=== PATIENT | male | born 1955 | race Caucasian/White ===

== ENCOUNTER 2019-12-19 09:05 | Outpatient (CLI) | payer MEDICARE, SELFPAY ==
--- NOTE | ~2019-12-19 | XR_ITS ---
EXAMINATION: XR chest 2V EXAM DATE: 12/19/2019 10:30 INDICATION: Persistent cough. TECHNIQUE: Frontal and lateral projections of the chest obtained and reviewed. Comparison is made to prior examination from 02/13/2012. FINDINGS: Left upper lobe, suprahilar postinfectious residua unchanged. The lungs are otherwise clear . There are no pleural effusions. The cardiomediastinal silhouette is within normal limits. There is no pneumothorax suspected. The bones and soft tissues are unremarkable. IMPRESSION: No acute cardiopulmonary findings. Reviewed, dictated and finalized at location B.
--- NOTE | 2019-12-23 12:31 | WPDPFTINT ---
PFT Interpretation PFT Interpretation: This PFT met all criteria for ATS standards and reproducibility FEV/FVC post bronchodilator 71% FEV1 73% or 2.50 liters FVC 69% or 3.51 lters TLC 87% RV 101% RV/TLC 42% DLCO 78% or 22.0 liters when adjusted for alveolar volume but not adjusted for hemoglobin Flow volume loops were normal Impression: Possible mild or to moderate obstruction with mildly reduced diffusion capacity. Would repeat PFT with bronchodilator challenge if needed. Clinical correlation is advised.
== END 2019-12-19 09:06 | disposition home or self-care (01) ==
PROVIDERS: PCP Family Medicine; Visit Provider Family Medicine
DX: R05 Cough (principal); E11.9 Type 2 diabetes mellitus without complications; I10 Essential (primary) hypertension; I48.91 Unspecified atrial fibrillation
CPT/HCPCS: 71046; 94375; 94726; 94729

== ENCOUNTER 2021-06-19 11:23 | Emergency (ER) | payer MEDICARE, SELFPAY ==
[2021-06-19 11:38] VITALS: BP 167/72; PULSE 64; RESP 16; TEMP 36.3; O2SAT 100
--- NOTE | 2021-06-19 12:26 | ED.UPPEXIN ---
HPI - Extremity Injury (Upper) General Chief Complaint: Extremity Injury, Upper Stated Complaint: INJURED R THUMB Source: patient and RN notes reviewed Limitations: no limitations History of Present Illness HPI narrative: The right-handed vaccinated patient, on multiple meds including anticoagulants, presents with thumb pain. Patient states he slipped and fell earlier this morning, abrading/ avulsing his right thumb. He complains of mild pain but continued bleeding that is unrelieved with pressure, styptic. He states he is on aspirin and Eliquis for history of atrial fibrillation. Symptoms are mild and only slightly better over time; he denies extremity decreased ROM, weakness, other injury,, other bleeding. Discussed plan will provide Surgicel and wound cleansing/preparation. Related Data Allergies Allergy/AdvReac Type Severity Reaction Status Date / Time Sulfa (Sulfonamide Allergy Unknown Skin Verified 04/04/21 15:25 Antibiotics) Reaction Review of Systems Review of Systems: General/Constitutional: No weight loss,fever Eyes: N0: Redness,discharge Ears/Nose/Throat: No: Epistaxis,ear discharge Respiratory: Denies: Hemoptysis Gastrointestinal: No Vomiting, Bleeding-rectal Skin: No Lumps, eruption Neurologic: No Focal Weakness,Sz Hematologic: Denies: Petechiae/Purpura Psychiatric: No: Suicida ideationl All Other Systems: Reviewed and Negative PMFSH Family History Family History Sibling Diabetes mellitus Hypertension Cerebrovascular accident Carcinoma of colon Family history of coronary artery disease Family history of malignant neoplasm of breast in first degree relative Family history of cardiovascular disease Father Family history of malignant neoplasm Grandparent Family history of kidney disease Other Family history of arthritis Family history of congestive heart failure Family history of obesity Social History Social History Alcohol intake: never Comments At time of signature, agree with nursing past medical, surgical, social and family history. There is no relevant family history pertinent to the presenting complaint Exam Narrative: General Appearance: Well appearing, Well nourished, No distress, Conjunctiva clear Mouth/Throat: Normal appearing, Normal lips, Supple Respiratory: Airway patent, No respiratory distress MS-finger:Nl strength(mostly intact, limited flexion/extension by pain),Tenderness (thumb tuft pad, with mild decreased ROM), Scant swelling ,Other (no anterior drawer, no collateral laxity, Skin: Nickel sized area of skin avulsion/abrasion of the thumb; warm, Dry, Normal color Neurological: A&O x3, Speech clear, CN II-XII intact Psychiatric: Normal mood, Normal affect Course Vital Signs Vital signs: Vital Signs Temperature 97.4 F L 06/19/21 11:38 Pulse Rate 64 06/19/21 11:38 Respiratory Rate 16 06/19/21 11:38 Blood Pressure 167/72 H 06/19/21 11:38 Pulse Oximetry 100 06/19/21 11:38 Temperature 97.4 F L 06/19/21 11:38 Pulse Rate 64 06/19/21 11:38 Respiratory Rate 16 06/19/21 11:38 Blood Pressure 167/72 H 06/19/21 11:38 Pulse Oximetry 100 06/19/21 11:38 Discharge Plan Discharge Clinical Impression: Abrasion Patient Disposition: Home, Self-Care Condition: Improved Instructions: Skin Avulsion (ED) Prescriptions: No Action tadalafil [Cialis] 10 mg tablet 10 mg PO DAILY PRN (Reason: sexual activity) Qty: 30 RF: 4 Eliquis 5 mg tablet 5 mg PO BID Qty: 60 RF: 11 metformin 500 mg tablet extended release 24 hr See Rx Instructions .ROUTE .COMPLEX Qty: 360 RF: 3 glimepiride 4 mg tablet See Rx Instructions .ROUTE .COMPLEX Qty: 90 RF: 3 irbesartan 150 mg tablet See Rx Instructions .ROUTE .COMPLEX Qty: 90 RF: 3 metoprolol succinate 50 mg tablet extended release 24 hr See R
[2021-06-19] MEDS: CELLULOSE OXIDIZED 2 x 14 INCH 1 PKT XX (12:33)
--- NOTE | 2021-06-19 18:27 | PC.NURSE ---
1328 ALEXANDRO AND QUINN APPLIED TO ABRASION RIGHT DISTAL THUMB PRIOR TO DISCHARGE
== END 2021-06-19 13:36 | disposition home or self-care (01) ==
PROVIDERS: Emergency Provider Emergency Medicine; PCP Family Medicine
DX: S60.311A Abrasion of right thumb, initial encounter (principal); E11.9 Type 2 diabetes mellitus without complications; I10 Essential (primary) hypertension; I48.91 Unspecified atrial fibrillation; E78.2 Mixed hyperlipidemia; W01.0XXA Fall on same level from slipping, tripping and stumbling without subsequent striking against object, initial encounter
CPT/HCPCS: 99212; G0463

== ENCOUNTER 2021-07-04 00:59 | Day surgery (SDC) | payer MEDICARE, SELFPAY ==
[2021-06-22 16:13] VITALS: BMI 33.4
--- NOTE | 2021-07-04 08:10 | WPDGICN ---
Assessment and Plan Assessment and plan (1) Family hx of colon cancer: Code(s): Z80.0 - Family history of malignant neoplasm of digestive organs Status: Acute Assessment and Plan: Patient's brother has had colon cancer. Plan is for surveillance colonoscopy now and at intervals in the future. GI Consult Note Consult date/time: 07/04/21 08:10 HPI: Wesley Sanchez is a 66 year old male REFERRED FOR SCREENING COLONOSCOPY. PATIENT REPORTS THAT HIS CURRENT WEIGHT APPETITE BOWEL MOVEMENTS ARE NORMAL. HE DENIES ABDOMINAL PAIN. HE HAS HAD NO BLEEDING. FAMILY HISTORY IS SIGNIFICANT HIS BROTHER HAD COLON CANCER. PATIENT'S LAST COLONOSCOPY WAS 10 YEARS AGO WAS UNREMARKABLE. [facility] Family History Family History Sibling Diabetes mellitus Hypertension Cerebrovascular accident Carcinoma of colon Family history of coronary artery disease Family history of malignant neoplasm of breast in first degree relative Family history of cardiovascular disease Father Family history of malignant neoplasm Grandparent Family history of kidney disease Other Family history of arthritis Family history of congestive heart failure Family history of obesity Social History Social History Smoking status: Former smoker Tobacco type: cigarettes Smoking end date: 10/08/89 Alcohol intake: current Alcohol use details: every other week, social Substance use: never Substance use type: does not use Living arrangements: with family Spiritual care concerns: No Meds Home Medications and Allergies Home Medications Medication Instructions Recorded Confirmed Type tadalafil 10 mg tablet 10 mg PO DAILY PRN #30 tablet 05/07/20 06/22/21 Rx apixaban 5 mg tablet 5 mg PO BID #60 tablet 09/27/20 06/22/21 Rx metformin 500 mg tablet,extended See Rx Instructions .ROUTE 12/03/20 06/22/21 Rx release 24 hr .COMPLEX #360 tablet glimepiride 4 mg tablet See Rx Instructions .ROUTE 03/02/21 06/22/21 Rx .COMPLEX #90 tablet irbesartan 150 mg tablet See Rx Instructions .ROUTE 03/02/21 06/22/21 Rx .COMPLEX #90 tablet metoprolol succinate 50 mg See Rx Instructions .ROUTE 03/02/21 06/22/21 Rx tablet,extended release 24 hr .COMPLEX #90 tablet simvastatin 20 mg tablet See Rx Instructions .ROUTE 03/02/21 06/22/21 Rx .COMPLEX #90 tablet Allergies Allergy/AdvReac Type Severity Reaction Status Date / Time Sulfa (Sulfonamide Allergy Unknown Skin Verified 06/22/21 16:12 Antibiotics) Reaction Exam Narrative: PHYSICAL EXAM REVEALS PATIENT TO BE ALERT. VITAL SIGNS STABLE. HEENT EXAM IS UNREMARKABLE. PATIENT IS ANICTERIC. LUNGS ARE CLEAR TO AUSCULTATION AND PERCUSSION. HEART IS WITHOUT MURMUR OR EXTRA SOUNDS. ABDOMINAL EXAM BOWEL SOUNDS ARE PRESENT SOFT NONTENDER WITH NO ORGANOMEGALY. DIGITAL EXTERNAL RECTAL EXAM IS NORMAL.
[2021-07-04 08:13] LABS: Glucose Point of Care 141 mg/dl (65-105)
[2021-07-04 08:16] VITALS: BP 167/115; PULSE 86; RESP 16; TEMP 36; O2SAT 99; BMI 31.2
--- NOTE | 2021-07-04 08:17 | WPDANESEPPF ---
Anes - Initial Pre Proc Eval Procedure: Operation Date: 07/04/21 09:00 Proposed Procedures p Screening Colonoscopy - Oleg Crenshaw MD Date/Time: 07/04/21 08:17 Surgeon: Oleg Crenshaw MD Pre Op Diagnosis: family hx of colon ca Patient Data Age: 66 Gender: M Height: 1.88 m Weight: 118 kg Allergies Allergy/AdvReac Type Severity Reaction Status Date / Time Sulfa (Sulfonamide Allergy Unknown Skin Verified 07/04/21 08:15 Antibiotics) Reaction Home Medications Medication Instructions Recorded Confirmed Type tadalafil 10 mg tablet 10 mg PO DAILY PRN #30 tablet 05/07/20 06/22/21 Rx apixaban 5 mg tablet 5 mg PO BID #60 tablet 09/27/20 06/22/21 Rx metformin 500 mg tablet,extended See Rx Instructions .ROUTE 12/03/20 06/22/21 Rx release 24 hr .COMPLEX #360 tablet glimepiride 4 mg tablet See Rx Instructions .ROUTE 03/02/21 06/22/21 Rx .COMPLEX #90 tablet irbesartan 150 mg tablet See Rx Instructions .ROUTE 03/02/21 06/22/21 Rx .COMPLEX #90 tablet metoprolol succinate 50 mg See Rx Instructions .ROUTE 03/02/21 06/22/21 Rx tablet,extended release 24 hr .COMPLEX #90 tablet simvastatin 20 mg tablet See Rx Instructions .ROUTE 03/02/21 06/22/21 Rx .COMPLEX #90 tablet Laboratory Tests 07/04/21 08:05 POC Capillary Glucose 141 mg/dl H mg/dl (65-105) Patient hx anesthesia problems: none Family hx anesthesia problems: none Results Review: All pre-operative results and documents have been reviewed as part of the pre-operative evaluation. [facility] Family History Family History Sibling Diabetes mellitus Hypertension Cerebrovascular accident Carcinoma of colon Family history of coronary artery disease Family history of malignant neoplasm of breast in first degree relative Family history of cardiovascular disease Father Family history of malignant neoplasm Grandparent Family history of kidney disease Other Family history of arthritis Family history of congestive heart failure Family history of obesity Social History Social History Smoking status: Former smoker Tobacco type: cigarettes Smoking end date: 10/08/89 Alcohol intake: current Alcohol use details: every other week, social Substance use: never Substance use type: does not use Living arrangements: with family Spiritual care concerns: No Anes - Eval Final PreProcedure Day of Procedure 07/04/21 08:17 Patient weight: obese Heart: irregular rhythm Lungs: clear to auscultation Airway: Mallampati scale Neurological: alert and oriented Last oral intake: >/= 8 hours ASA classification: III Emergent: no Anesthetic plan: proceed Anesthesia type and monitoring: general GIVS and standard monitoring Results Review: All pre-operative results and documents have been reviewed as part of the pre-operative evaluation. Informed Consent: The patient's anesthetic plan and its attendant risks and benefits were discussed with the patient/family/POA. Questions were solicited and answers provided to the satisfaction of the patient/family/POA.
[2021-07-04] MEDS: LACTATED RINGERS 1,000 ML 150 ML IV CONT (08:30)
[2021-07-04 08:32] VITALS: BP 157/90
[2021-07-04 09:04] VITALS: BP 103/62; PULSE 71; RESP 14; O2SAT 96
[2021-07-04 09:14] VITALS: BP 120/69; PULSE 76; RESP 14; O2SAT 96
[2021-07-04 09:24] VITALS: BP 164/93; PULSE 83; RESP 19; O2SAT 100
== END 2021-07-04 09:43 | disposition home or self-care (01) ==
PROVIDERS: PCP Family Medicine; Visit Provider Internal Medicine Gastroenterology
PROC: 0DJD8ZZ Inspection of Lower Intestinal Tract, Via Natural or Artificial Opening Endoscopic (ICD-10-PCS; CPT 45378; principal; 2021-07-04 09:00)
DX: Z12.11 Encounter for screening for malignant neoplasm of colon (principal); K64.8 Other hemorrhoids; K63.5 Polyp of colon; D12.2 Benign neoplasm of ascending colon; D12.4 Benign neoplasm of descending colon; D12.3 Benign neoplasm of transverse colon; Z79.01 Long term (current) use of anticoagulants; Z79.84 Long term (current) use of oral hypoglycemic drugs; Z87.891 Personal history of nicotine dependence; E66.9 Obesity, unspecified; Z68.31 Body mass index [BMI] 31.0-31.9, adult
CPT/HCPCS: 45385; 82948; 88305; J2704; J7120

== ENCOUNTER → 2021-09-06 10:47 | Outpatient (CLI) | payer MEDICARE, SELFPAY ==
--- NOTE | ~2021-09-06 | US_ITS ---
US renal BI 09/06/2021 11:03 Procedure: Realtime transabdominal ultrasound of the kidneys and bladder. Indication: Decreased renal function Comparison: No prior studies for comparison. Findings: Renal echotexture is increased bilaterally without hydronephrosis, contour deforming mass o r renal calculus. The right kidney measures 12.8 cm and left kidney measures 12.8 cm. There is a righ t renal cyst measuring 1.7 cm. Bladder within normal limits. Impression: 1: Increased renal cortical echotexture bilaterally, consistent with chronic renal disease. Reviewed, dictated and finalized at location B. RDOUS SUBSTANCES SCIENTIST Impression: 1: Increased renal cortical echotexture bilaterally, consistent with chronic re nal disease.
== END ==
PROVIDERS: PCP Family Medicine; Visit Provider Internal Medicine Nephrology
DX: R94.4 Abnormal results of kidney function studies (principal)
CPT/HCPCS: 76775

== ENCOUNTER 2022-08-29 20:39 | Inpatient (IN) | payer MEDICARE, SELFPAY ==
[2022-08-29] VITALS (18 sets, daily range): BP systolic 127–165; BP diastolic 66–88; PULSE 82–101; RESP 14–27; TEMP 37.6–38.3; O2SAT 93–96
--- NOTE | ~2022-08-29 | XR_ITS ---
XR chest port-a-cath/central 09/04/2022 12:27 Indication: Central line placement Procedure: AP portable chest Comparison: Comparison to multiple prior studies sequentially, with oldest reviewed study dated 05/2012. Findings: Borderline heart size. No focal air space disease, pulmonary edema, pleural effusion or connor pected pneumothorax. There is calcified granuloma left apex. Right IJ central line tip caudal aspect of the SVC near the cavoatrial junction. Impression: 1: No acute cardiopulmonary disease. Reviewed, dictated and finalized at location A. CLOSER Impression: 1: No acute cardiopulmonary disease.
--- NOTE | ~2022-08-29 | US_ITS ---
EXAMINATION: US right upper quadrant DATE: 09/03/2022 09:02 INDICATION: Bacteremia. TECHNIQUE: Multiple grayscale and Doppler ultrasound images of the abdomen were obtained. COMPARISON: CT abdomen and pelvis 09/03/2015 FINDINGS: Abdominal aorta is normal in caliber. The visualized portions of the head of the pancreas a re normal. The liver is normal without focal lesion. There is normal flow in main portal vein. The ga llbladder is normal in size and contains sludge. No gallstones or gallbladder wall thickening. There is no sonographic King sign. The common duct is normal and measures 4 mm. There is a 1.7 cm cyst in right kidney. IMPRESSION: 1. Gallbladder sludge. No evidence of acute cholecystitis. Reviewed, dictated and finalized at location A. UNICATION ARTS LECTURER
--- NOTE | ~2022-08-29 | CT_ITS ---
EXAMINATION: CT cervical spine wo con DATE: 08/29/2022 21:50 INDICATION: Fall. TECHNIQUE: Computed tomography (CT) of the cervical spine was performed without intravenous contrast. Automated exposure control and iterative reconstruction technique were employed. The dose-length pro duct was 538.03 mGy-cm. COMPARISON: None FINDINGS: There is 2 mm anterolisthesis of C7 on T1. Vertebral body heights are normal. There is mild ly decreased disc height at C2-C3 and C4-C5, moderately decreased disc height at C5-C6, severely decr eased disc height at C6-C7, and mildly decreased disc height at T7-T1. The following disc levels are specifically discussed: C2-C3: There is mild bilateral uncovertebral joint osteoarthritis. There is moderate bilateral facet joint osteoarthritis. There is no neural foraminal stenosis. There is no central canal stenosis. C3-C4: There is mild bilateral uncovertebral joint osteoarthritis. There is severe bilateral facet nallely int osteoarthritis. There is mild bilateral neural foraminal stenosis. There is mild central canal st enosis. C4-C5: There is moderate right and mild left uncovertebral joint osteoarthritis. There is severe righ t and mild left facet joint osteoarthritis. There is mild right neural foraminal stenosis. There is m ild central canal stenosis. C5-C6: There is severe bilateral uncovertebral joint osteoarthritis. There is moderate bilateral face t joint osteoarthritis. There is moderate right and mild left neural foraminal stenosis. There is mil d central canal stenosis. C6-C7: There is severe bilateral uncovertebral joint osteoarthritis. There is moderate and severe lef t facet joint osteoarthritis. There is mild bilateral neural foraminal stenosis. There is mild centra l canal stenosis. C7-T1: There is no uncovertebral joint osteoarthritis. There is severe bilateral facet joint osteoart hritis. There is mild bilateral neural foraminal stenosis. There is no central canal stenosis. IMPRESSION: 1. No fracture. 2. Severe cervical spondylosis. Reviewed, dictated and finalized at location A. ISION LAYOUT WORKER
--- NOTE | ~2022-08-29 | XR_ITS ---
EXAMINATION: XR chest 1V portable Exam Date/Time: 08/29/2022 21:05 MACHINERY CLEANER HISTORY: Fall/fever, TRANSIENT ALTERATION OF AWARENESS Comparison: 12/19/2019. RESULT: Lines, tubes, and devices: Cardiac valve replacement. Lungs and pleura: Low volumes with crowding. No focal consolidation or pneumothorax. Mild senescent change. Cardiomediastinal silhouette: Stable. Other: No acute osseous or upper abdominal finding. IMPRESSION: No acute cardiopulmonary process. Reviewed, dictated and finalized at location K. INERY CLEANER
--- NOTE | ~2022-08-29 | XR_ITS ---
XR chest 2V DATE: 08/31/2022 10:23 INDICATION: Cough TECHNIQUE: PA and lateral views COMPARISON: 08/29/2022 portable AP chest FINDINGS: Normal heart size. Cardiac valve replacement. No pulmonary infiltrate or consolidation. Slight blunting of the costophrenic angles; cannot exclude slight pleural effusions. No pulmonary vascular congestion or pneumothorax. Dextroscoliosis and degenerative spurring of the thoracic spine. IMPRESSION: No active cardiac pulmonary disease Cardiac valve replacement Slight blunting of the costophrenic angles Reviewed, dictated and finalized at location A. TABLE TRIMMER
--- NOTE | ~2022-08-29 | CT_ITS ---
EXAMINATION: CT brain wo con DATE: 08/29/2022 21:50 INDICATION: Altered mental status. Fall. TECHNIQUE: Computed tomography (CT) of the head was performed without intravenous contrast. The mA wa s adjusted according to patient size. Iterative reconstruction technique was employed. The dose-lengt h product was 605.33 mGy-cm. COMPARISON: None FINDINGS: There are scattered areas of low attenuation in the cerebral white matter, which is within normal limits for the patient's age. There is no intracranial hemorrhage, acute infarction, or abnorm al intracranial mass lesion. The ventricles are normal in size. There is mucosal thickening in the pa ranasal sinuses. There is thickening and stenosis of the stokc of right maxillary sinus, which is sma ll, consistent with chronic sinusitis. The mastoid air cells are normal. There is cerumen in the exte rnal auditory canals. IMPRESSION: 1. Normal aging brain. 2. Chronic sinusitis. Reviewed, dictated and finalized at location A. E COORDINATOR
--- NOTE | 2022-08-29 20:45 | ECG_ITS ---
Measurements Intervals [place] Rate: 94 P: ND: 0 QRS: 11 QRSD: 76 T: 48 QT: 350 QTc: 439 Interpretive Statements ATRIAL FIBRILLATION VENTRICULAR PREMATURE COMPLEXES EARLY PRECORDIAL R/S TRANSITION NONSPECIFIC ST & T-WAVE ABNORMALITY- DIFFUSE LEADS BASELINE ARTIFACT- I, II, III, AVR, AVL, AVF ABNORMAL ECG NO PREVIOUS ECG AVAILABLE FOR COMPARISON Electronically Signed On 08-30-2022 9:02:02 LAST INSERTER by Red De La Rosa D.O.
--- NOTE | 2022-08-29 20:58 | ED.GENADULT ---
HPI - General Adult General Chief complaint: Altered Mental Status Stated complaint: AMS, WEAKNESS Time Seen by Provider: 08/29/22 20:47 History of Present Illness HPI narrative: This is a 67-year-old male presented to ED after a ground level fall at home. Patient says he got home from work at 6:00 p.m. and when he went to the restroom became dizzy and fell. He was unable to get himself off the floor. Patient's family became concerned and called EMS. When EMS arrived they found to be in A-Fib with a temperature of a 103?. Patient notes that he has had cough and congestion over the last several days. He denies chest pain, shortness of breath, abdominal pain, nausea vomiting or diarrhea. Patient is vaccinated against flu and COVID. He denies sick contacts at home. He has noted that he has had increased urinary frequency. Related Data Allergies Allergy/AdvReac Type Severity Reaction Status Date / Time Sulfa (Sulfonamide Allergy Unknown Skin Verified 03/28/22 09:18 Antibiotics) Reaction Review of Systems Review of Systems: CONSTITUTIONAL: Denies night sweats. EYES: No eye pain ENT: Denies rhinorrhea CARDIOVASCULAR: Denies palpitations RESPIRATORY: Denies hemoptysis GASTROINTESTINAL: Denies hematemesis GENITOURINARY: Denies hematuria. SKIN: Denies rash MUSCULOSKELETAL: Denies myalgia. NEUROLOGIC: Denies weakness. PSYCHIATRIC: Denies delusions [facility] Family History Family History Sibling Diabetes mellitus Hypertension Cerebrovascular accident Carcinoma of colon Family history of coronary artery disease Family history of malignant neoplasm of breast in first degree relative Family history of cardiovascular disease Father Family history of malignant neoplasm Grandparent Family history of kidney disease Other Family history of arthritis Family history of congestive heart failure Family history of obesity Social History Social History Tobacco type: cigarettes Smoking end date: 10/08/89 Alcohol intake: current Alcohol use details: every other week, social Substance use: never Substance use type: does not use Spiritual care concerns: No Exam Narrative: APPEARANCE: No apparent distress. Head: atraumatic. EYES: EOMI, lazy eye NOSE: Atraumatic NECK: Trachea midline RESPIRATORY: clear also station bilaterally, no increased work of breathing CARDIOVASCULAR: tachycardic ABDOMINAL: Non-distended MUSCULOSKELETAl: No obvious deformities NEURO: Alert. Moving 4/4 extremities SKIN:: Warm, dry. Normal color PSYCHIATRIC: Normal affect Course Vital Signs Vital signs: Vital Signs Temperature 101 F H 08/29/22 20:36 Pulse Rate 101 H 08/29/22 20:36 Respiratory Rate 23 H 08/29/22 20:36 Blood Pressure 156/66 H 08/29/22 20:36 Pulse Oximetry 94 08/29/22 20:36 Oxygen Delivery Room Air 08/29/22 20:36 Temperature 99.6 F 08/29/22 22:16 Pulse Rate 82 08/29/22 22:46 Respiratory Rate 22 H 08/29/22 22:46 Blood Pressure 127/88 08/29/22 22:31 Pulse Oximetry 95 08/29/22 22:46 Oxygen Delivery Room Air 08/29/22 20:36 Medical Decision Making MDM Narrative Medical decision making narrative: this is a 67-year-old male presenting ED after a fall at home and febrile. Full sepsis workup has been ordered. CT the head and C-spine have also been ordered. patient has been on Tylenol and IV fluids. EKG interpretation: Rhythm AFib, Rate 94, [place] -[normal], IA -[normal], QRS [narrow], QTC [normal], T waves -[negative for concerning inversions], ST Segments - [Negative for concerning elevations] Final interpretations: AFib with occasional PVCs Lab work significant for white blood cell count is elevated at 18.8. patient was mildly hyponatremic. BUN creatinine were slightly elevated from his baseline approximately 1.8. Urinalysis did not indicate
[2022-08-29] MEDS: SODIUM CHLORIDE 0.9% IV 1,000 ML 999 ML IV CONT (21:06)
[2022-08-29 21:12] LABS: Basophils Absolute Auto 0.1 K/mm3 (0.0-0.1); Basophils Percent Auto 0.5 % (0.2-1.2); Hematocrit 45.3 % (42.0-52.0); Hemoglobin 14.9 g/dL (14.0-18.0); Immature Granulocyte Absolute 0.15 K/mm3 (0.00-0.031); Immature Granulocyte Percent A 0.8 % (0-0.5); Lymphocytes Percent Auto 2.7 % (18.3-44.2); Mean Corpuscular HGB Conc 32.9 g/dl (32-36); Mean Corpuscular Hemoglobin 31.5 pg (26-34); Mean Corpuscular Volume 95.8 fl (80-100); Mean Platelet Volume 10.3 fl (7.4-10.4); Monocytes Absolute Auto 0.9 K/mm3 (0.1-0.6); Monocytes Percent Auto 4.8 % (2.6-8.5); Neutrophils Absolute Auto 17.1 K/mm3 (1.3-6.7); Neutrophils Percent Auto 91.2 % (45.5-73.1); Platelet Count Result 242 k/mm3 (150-375); Red Blood Count 4.73 M/mm3 (4.6-6.20); Red Cell Distribution Width 13.2 % (11.5-14.5); White Blood Count 18.8 K/mm3 (4.5-10.0)
[2022-08-29 21:26] LABS: Ovalocytes 1+ (NORMAL); Platelet Estimate Adequate (Adequate); Schistocytes None Seen (NORMAL)
[2022-08-29 21:28] LABS: Alanine Aminotransferase 33 U/L (6-50); Albumin Level 3.4 g/dL (3.5-5.1); Alkaline Phosphatase 154 U/L (38-126); Anion Gap 7 mmol/L (8-16); Aspartate Amino Transferase 37 U/L (17-59); Bilirubin,Total 0.8 mg/dL (0.2-1.3); Blood Urea Nitrogen 31 mg/dL (9-20); Calcium 8.2 mg/dL (8.4-10.2); Carbon Dioxide 22 mmol/L (22-30); Chloride 101 mmol/L (98-107); Creatine Kinase 94 U/L (55-170); Estimated CRCL calculation 39 ml/min; Estimated Glomerular Filt Rate 30; Glucose 214 mg/dL (65-110); Lactic Acid Reflex 1.7 mmol/L (0.7-2.0); Lipase 258 U/L (23-300); Magnesium 1.8 mg/dL (1.6-2.3); Potassium 3.5 mmol/L (3.4-5.0); Sodium 130 mmol/L (137-145)
[2022-08-29 21:32] LABS: INR 1.4; Partial Thromboplastin Time 27.4 SECONDS (22.3-36.8); Prothrombin Time 16.6 Seconds (11.1-14.7); Prothrombin Time 16.8 Seconds (11.1-14.7)
[2022-08-29 21:33] LABS: Partial Thromboplastin Time 27.9 SECONDS (22.3-36.8)
[2022-08-29 21:39] LABS: Troponin I 0.029 ng/mL (0.000-0.034)
[2022-08-29 21:43] LABS: Appearance Urine Slightly Cloudy (Clear); Bilirubin Urine Negative (Negative); Blood Urine 1+ (Negative); Color Urine Yellow (Yellow); Glucose Urine UA 3+ mg/dL (Negative); Ketones Urine 1+ mg/dL (Negative); Leukocyte Esterase Ur Negative LEU/UL (Negative); Nitrate Urine Negative (Negative); Protein Urine 3+ mg/dL (Negative); Specific Grav Ur 1.015 (1.001-1.035); Urobilinogen Urine 0.2 mg/dL (<2.0); pH Urine 5.5 (5.0-9.0)
[2022-08-29 21:46] LABS: Add Urine Microscopic? YES; Mucus Urine Rare /lpf; Squamous Epithelial Cell Urine Rare /hpf (Few); WBC Urine 0-3 /hpf
[2022-08-29 21:52] LABS: Influenza A QL RT-PCR Negative (Negative); Influenza B QL RT-PCR Negative (Negative); SARS-CoV-2 RNA PCR Negative
[2022-08-29 22:01] LABS: Glucose Point of Care 204 mg/dl (65-105)
--- NOTE | 2022-08-29 22:57 | PC.NURSE ---
Assumed pt care Cony Bishop RN
[2022-08-29 23:50] LABS: RSV RNA, RT-PCR Negative (Negative)
[2022-08-30] VITALS (7 sets, daily range): BP systolic 104–169; BP diastolic 62–84; PULSE 54–104; RESP 16–20; TEMP 36.3–37.7; O2SAT 95–99; BMI 30.7
--- NOTE | 2022-08-30 00:55 | ADMGEN ---
This patient, Wesley Sanchez, was admitted to Medical Room 348-. Patient/family oriented to hospital policies and general routines including ID bracelet, bed and alarms, visiting hours, pain management, procedures, bathroom and other care routines, personal items, smoking policy, room service/diet, and visiting hours. Information on how to activate the Rapid Response Team has been discussed. Patient/Family are encouraged to report perceived risks to care and to ask questions if they do not understand what they are told or what they should do.
[2022-08-30] MEDS: LACTATED RINGERS 1,000 ML 125 ML IV CONT ×3 (01:09→16:46)
--- NOTE | 2022-08-30 05:42 | PM.IMHP ---
H&P: HPI History of Present Illness Date/Time: 08/30/22 05:43 Chief Complaint: Fall, fever Narrative: 67-year-old male with past medical history of chronic kidney disease, type 2 diabetes mellitus on oral medications, atrial fibrillation and TAVR October 2021 who presented to the ER with fall due to weakness. The patient also reports associated symptoms of fever up to 103 at home and 101 on arrival to the ER. Patient is a good historian and tells me that he has been feeling fatigued and intermittently unwell for about 2.5 weeks. His symptoms 1st started when he was out of town for work. 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 He reported that he slept most the day that day. He did not have any associated sore throat, nasal congestion, nausea, vomiting chest pain, dysuria or hematuria. He had no GI symptoms. He did report some intermittent cough that is nonproductive but nothing he thinks was significant. He did not check his temperature at this time but he was having cold chills. He reports that since he returned home he did feel little bit better but was still having episodes of night sweats. He was having persistent fatigue. He had outpatient COVID testing that was negative. He denied any confusion. He has been noticing some lightheadedness over the last day or two. Then on the day of admission when he returned from work he went into the bathroom and felt lightheaded. He subsequently sat down on the edge of the tub. He reports to me that he actually does not remember falling. Evidently the patient's found him on the floor and she called their 3 sons which came over. They then called EMS who brought the patient in. The patient actually does not remember EMS coming to his home. He does not sent report any significant headache but reports that over the recent course of his illness see has had a in mild intermittent headache. He denies any pain anywhere currently. He does not have any wounds. He feels that he has not had any increased urinary frequency. He occasionally does not empty his bladder completely. He denies any difficulty stopping his stream but occasionally has difficulty starting his stream. Denies any history of BPH. He is on blood thinners but has not had any melena or hematochezia. He reports that he has maintained his weight loss after his gastric sleeve. His pre surgery weight was 326 lb. He is currently down to around 240 lb. He reports that he was diagnosed with sleep apnea but he was never able to tolerate the CPAP. When I arrived in the room the patient was actively snoring but I did not witness any apnea. Review of Systems Review of Systems: 12 systems were reviewed with pertinent positives and negatives per HPI. Except as documented in the HPI, all other systems were reviewed and are negative. [facility] Past Medical History Medical History (Updated 08/30/22 @ 20:15 by Glenys Marcus, ) Actinic keratosis Aortic stenosis Status post TAVR repeat echo 05/01/2022: Moderate concentric left ventricular hypertrophy, normal global left ventricular systolic function with EF of 60%, basal inferior segment hypokinesis, mitral valve leaflets mildly thickened, mild mitral valve regurgitation, aortic valve not well-visualized peak gradient 23 mean gradient 12 valve area 1.07, no aortic regurgitation, normal appearing aortic valve prosthesis gradients normal for valve type and size, mild pulmonary hypertension with RVSP of 35, mild tricuspid regurgitation, atrial fibrillation, technically difficult study with limited views Atrial fibrillation (~2009) Chronic Basal cell carcinoma (BCC) of face CKD (chronic kidney disease) Coronary artery disease Left heart catheterization mild nonobstructive coronary artery disease September 2021 Diabetic peripheral neuropathy Diverticulosis 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
[2022-08-30 07:32] LABS: Basophils Absolute Auto 0.1 K/mm3 (0.0-0.1); Basophils Percent Auto 0.3 % (0.2-1.2); Eosinophils Percent Auto 0.1 % (0-4.4); Hemoglobin 14.1 g/dL (14.0-18.0); Immature Granulocyte Absolute 0.24 K/mm3 (0.00-0.031); Immature Granulocyte Percent A 1.1 % (0-0.5); Lymphocytes Absolute Auto 1.33 K/mm3 (0.9-3.2); Mean Corpuscular HGB Conc 32.8 g/dl (32-36); Mean Corpuscular Volume 97.5 fl (80-100); Mean Platelet Volume 10.8 fl (7.4-10.4); Monocytes Absolute Auto 1.5 K/mm3 (0.1-0.6); Monocytes Percent Auto 6.8 % (2.6-8.5); Neutrophils Absolute Auto 18.9 K/mm3 (1.3-6.7); Neutrophils Percent Auto 85.7 % (45.5-73.1); Platelet Count Result 229 k/mm3 (150-375); Red Blood Count 4.41 M/mm3 (4.6-6.20); Red Cell Distribution Width 13.4 % (11.5-14.5)
[2022-08-30 07:52] LABS: Alanine Aminotransferase 32 U/L (6-50); Albumin Level 3.2 g/dL (3.5-5.1); Alkaline Phosphatase 122 U/L (38-126); Anion Gap 11 mmol/L (8-16); Aspartate Amino Transferase 39 U/L (17-59); Bilirubin,Total 0.7 mg/dL (0.2-1.3); Blood Urea Nitrogen 30 mg/dL (9-20); Calcium 8.1 mg/dL (8.4-10.2); Carbon Dioxide 23 mmol/L (22-30); Chloride 102 mmol/L (98-107); Estimated CRCL calculation 40 ml/min; Estimated Glomerular Filt Rate 31; Glucose 228 mg/dL (65-110); Lactate Dehydrogenase 238 U/L (120-246); Potassium 4.1 mmol/L (3.4-5.0); Sodium 136 mmol/L (137-145)
[2022-08-30 08:16] LABS: CRP 14.1 mg/dL (<1.0)
[2022-08-30] MEDS: ASPIRIN 81 MG ENTERIC TABLET PO (08:33)
[2022-08-30] MEDS: APIXABAN 2.5 MG TABLET PO ×2 (08:33→16:49)
[2022-08-30] MEDS: EZETIMIBE 10 MG TABLET PO (08:33)
[2022-08-30] MEDS: GLIMEPIRIDE 2 MG TABLET 4 MG PO (08:33)
[2022-08-30] MEDS: amLODIPine BESYLATE 5 MG TABLET PO (08:33)
[2022-08-30] MEDS: EMPAGLIFLOZIN 10 MG TABLET PO (08:33)
[2022-08-30] MEDS: MAGNESIUM OXIDE 400 MG TABLET PO (08:34)
[2022-08-30] MEDS: METOPROLOL SUCCINATE EXT REL 50 MG TABCR PO ×2 (08:34→16:49)
[2022-08-30 08:37] LABS: Glucose Point of Care 218 mg/dl (65-105)
[2022-08-30] MEDS: INSULIN ASPART (*BKC) 100 UNITS/ML SUB-Q ×2 (08:39→12:42)
--- NOTE | 2022-08-30 09:06 | PM.IMPN ---
Progress Note: A&P Assessment and Plan (1) Fever, unknown origin: Code(s): R50.9 - Fever, unspecified Status: Acute Assessment and Plan: Patient presented with fall due to fever of unknown origin associated with leukocytosis. Lactic acid level normal but CRP 14. Blood cultures are pending. UA not consistent with UTI. Influenza, RSV and COVID negaitve. CXR clear. The patient has been afebrile except for his initial temperature in the ER. Tylenol has been ordered as needed for fever. Awaiting blood cultures. Abx on hold Called by RN with positive BCx. Will start Vanco and Rocephin. (2) Leukocytosis: Qualifiers: Leukocytosis type: leukemoid reaction Qualified Code(s): D72.823 - Leukemoid reaction Code(s): D72.829 - Elevated white blood cell count, unspecified Status: Acute Assessment and Plan: [place] related to above. Follow (3) Fall from ground level: Code(s): W18.30XA - Fall on same level, unspecified, initial encounter Status: Acute Assessment and Plan: [place] related to fever. CT head egative for acute findings. Cervical spine CT also negative for acute findigs. Will place on fall precautions. Have out of bed (4) Type 2 diabetes mellitus with hyperglycemia, without long-term current use of insulin: Code(s): E11.65 - Type 2 diabetes mellitus with hyperglycemia Status: Acute Assessment and Plan: The patient does have diabetes with hyperglycemia. Will resume home oral medications will add moderate sliding scale insulin with Accu-Cheks a.c. HS. Will change diet to consistent carbohydrate. Start diet (5) CKD (chronic kidney disease): Qualifiers: Chronic kidney disease stage: stage 3 (moderate) Chronic kidney disease stage 3 subtype: stage 3b (GFR 30-44) Qualified Code(s): N18.32 - Chronic kidney disease, stage 3b Code(s): N18.9 - Chronic kidney disease, unspecified Status: Acute Assessment and Plan: Patient does have chronic kidney disease but creatinine appears near baseline. Will repeat BMP in a.m. and check inflammatory markers. (6) Atrial fibrillation: Onset Date: ~2009 Qualifiers: Atrial fibrillation type: permanent Qualified Code(s): I48.21 - Permanent atrial fibrillation Code(s): I48.91 - Unspecified atrial fibrillation Status: Acute Assessment and Plan: The patient is in AFib but is rate controlled. Will continue home metoprolol XL and Eliquis. (7) Essential hypertension: Code(s): I10 - Essential (primary) hypertension Status: Acute Assessment and Plan: Patient's blood pressure has been relatively stable but has trended upward this morning. Will resume home antihypertensives. Plan Patient does have some mild hyponatremia likely due to hypovolemia. Continue IV fluids and repeat BMP in a.m.. Subjective Date/time seen: 08/30/22 09:06 Interval history: 67yo male with CKD, DM, hx of TAVR and Afib here for AMS and fever. Assuming care. Chart reviewed. Patient denies loss of consciousness prior to admission although he has poor memory of the trip by ambulance to the hospital. He states he has had fevers and chills for the past 2-3 weeks intermittently. He is up-to-date on his influenza and COVID vaccines. No nausea, vomiting or diarrhea. No chest pain or shortness of breath. He has a slight nonproductive cough is also made going on for few weeks. No dysuria or hematuria. No skin rash. Exam Narrative: Tm 101.0 97.4 162/84 77 20 95% ra Gen - NARD Chest - CTA bilaterally, nml RR CV -Irregularly irregular. No murmur. Abd - Soft, NT/ND, Positive BS Ext - trace pedal edema. Negative Homans sign. Neuro - Alert and oriented. Nonfocal exam. Dysconjugate gaze noted. Psych - Nml mood and affect Skin - Warm and dry. No rash. Objective Data Vital Signs Vital Signs: Vital Signs - 24 hr 08/29/22 2
[2022-08-30 12:24] LABS: Glucose Point of Care 211 mg/dl (65-105)
[2022-08-30] MEDS: cefTRIAXone 2 GM in SODIUM CHLORIDE 0.9% IV 100 ML 200 ML IVPB (16:43)
[2022-08-30 17:20] LABS: Glucose Point of Care 188 mg/dl (65-105)
[2022-08-30] MEDS: ATORVASTATIN 40 MG TABLET 80 MG PO (20:12)
[2022-08-30 20:18] LABS: Glucose Point of Care 300 mg/dl (65-105)
[2022-08-30 23:29] LABS: Glucose Point of Care 222 mg/dl (65-105)
[2022-08-30] MEDS: ACETAMINOPHEN 325 MG TABLET 650 MG PO (23:29)
[2022-08-31] VITALS (10 sets, daily range): BP systolic 138–152; BP diastolic 67–95; PULSE 67–96; RESP 16–18; TEMP 36.8–37.3; O2SAT 96–98
[2022-08-31] MEDS: TAMSULOSIN HCL 0.4 MG CAPSULE PO ×2 (01:12→08:47)
[2022-08-31] MEDS: LACTATED RINGERS 1,000 ML 125 ML IV CONT (01:12)
[2022-08-31 05:41] LABS: Alanine Aminotransferase 30 U/L (6-50); Albumin Level 2.7 g/dL (3.5-5.1); Alkaline Phosphatase 106 U/L (38-126); Anion Gap 8 mmol/L (8-16); Aspartate Amino Transferase 41 U/L (17-59); Bilirubin,Total 0.5 mg/dL (0.2-1.3); Blood Urea Nitrogen 28 mg/dL (9-20); Calcium 7.7 mg/dL (8.4-10.2); Carbon Dioxide 23 mmol/L (22-30); Chloride 101 mmol/L (98-107); Estimated CRCL calculation 42 ml/min; Estimated Glomerular Filt Rate 33; Glucose 207 mg/dL (65-110); Potassium 3.7 mmol/L (3.4-5.0); Sodium 132 mmol/L (137-145)
[2022-08-31 05:54] LABS: Basophils Absolute Auto 0.1 K/mm3 (0.0-0.1); Basophils Percent Auto 0.5 % (0.2-1.2); Hematocrit 37.1 % (42.0-52.0); Immature Granulocyte Absolute 0.23 K/mm3 (0.00-0.031); Lymphocytes Percent Auto 7.4 % (18.3-44.2); Mean Corpuscular HGB Conc 32.3 g/dl (32-36); Mean Corpuscular Hemoglobin 31.5 pg (26-34); Mean Corpuscular Volume 97.4 fl (80-100); Monocytes Absolute Auto 1.7 K/mm3 (0.1-0.6); Monocytes Percent Auto 7.5 % (2.6-8.5); Neutrophils Absolute Auto 19.3 K/mm3 (1.3-6.7); Neutrophils Percent Auto 83.6 % (45.5-73.1); Platelet Count Result 216 k/mm3 (150-375); Red Blood Count 3.81 M/mm3 (4.6-6.20); Red Cell Distribution Width 13.6 % (11.5-14.5); White Blood Count 23.1 K/mm3 (4.5-10.0)
[2022-08-31 06:00] LABS: Procalcitonin 7.2 ng/mL
[2022-08-31 08:08] LABS: Glucose Point of Care 200 mg/dl (65-105)
[2022-08-31] MEDS: METOPROLOL SUCCINATE EXT REL 50 MG TABCR PO ×2 (08:47→16:56)
[2022-08-31] MEDS: EZETIMIBE 10 MG TABLET PO (08:47)
[2022-08-31] MEDS: APIXABAN 2.5 MG TABLET PO ×2 (08:47→16:56)
[2022-08-31] MEDS: ASPIRIN 81 MG ENTERIC TABLET PO (08:47)
[2022-08-31] MEDS: amLODIPine BESYLATE 5 MG TABLET PO (08:47)
[2022-08-31] MEDS: EMPAGLIFLOZIN 10 MG TABLET PO (08:48)
[2022-08-31] MEDS: MAGNESIUM OXIDE 400 MG TABLET PO (08:48)
[2022-08-31] MEDS: INSULIN GLARGINE (*BKC) 100 UNITS/ML 10 UNITS SUB-Q (08:48)
--- NOTE | 2022-08-31 10:42 | PM.IMPN ---
Progress Note: A&P Assessment and Plan (1) Septicemia: Code(s): A41.9 - Sepsis, unspecified organism Status: Acute Assessment and Plan: Patient presented with fall due to feverand found to have septicemia present on admission with fevers, elevated WBC, tachycardia, tachypnea and now positive BCx. Lactic acid level normal but CRP 14 and Procalcitonin 7.2. -UA not consistent with UTI. -Influenza, RSV and COVID negative -CXR clear. -WBC up to 23K -Blood cultures are positive. Strept gallolticus (2 bottles), Staph hominis (aerobic only); 2nd set postive as well. pending. The patient has been afebrile except for his initial temperature in the ER. Tylenol has been ordered as needed for fever. Despite multiple organisms, suspect BCx are real to explain his symptons. Awaiting final blood culture results. Continue Rocephin and Vanco. (2) Leukocytosis: Qualifiers: Leukocytosis type: leukemoid reaction Qualified Code(s): D72.823 - Leukemoid reaction Code(s): D72.829 - Elevated white blood cell count, unspecified Status: Acute Assessment and Plan: [place] related to above. Follow (3) Fall from ground level: Code(s): W18.30XA - Fall on same level, unspecified, initial encounter Status: Acute Assessment and Plan: [place] related to fever. CT head negative for acute findings. Cervical spine CT also negative for acute findings. Continue fall precautions. (4) Type 2 diabetes mellitus with hyperglycemia, without long-term current use of insulin: Code(s): E11.65 - Type 2 diabetes mellitus with hyperglycemia Status: Acute Assessment and Plan: The patient's blood glucose was reviewed on 08/31 Glucose remains elevated. Continue AccuCheks covering with sliding scale. Hypoglycemia protocol available as needed. Hold Amaryl. Add Lantus. (5) CKD (chronic kidney disease): Qualifiers: Chronic kidney disease stage: stage 3 (moderate) Chronic kidney disease stage 3 subtype: stage 3b (GFR 30-44) Qualified Code(s): N18.32 - Chronic kidney disease, stage 3b Code(s): N18.9 - Chronic kidney disease, unspecified Status: Acute Assessment and Plan: Patient does have chronic kidney disease but creatinine remaining stable and at baseline. Follow (6) Atrial fibrillation: Onset Date: ~2009 Qualifiers: Atrial fibrillation type: permanent Qualified Code(s): I48.21 - Permanent atrial fibrillation Code(s): I48.91 - Unspecified atrial fibrillation Status: Acute Assessment and Plan: The patient is in AFib but is rate controlled. Continue home metoprolol XL and Eliquis. (7) Essential hypertension: Code(s): I10 - Essential (primary) hypertension Status: Acute Assessment and Plan: Patient's blood pressure has been relatively stable but with wide range. Follow. Plan Patient does have some mild hyponatremia likely due to hypovolemia. Sodium better. Stop IV fluids. Subjective Date/time seen: 08/31/22 10:42 Interval history: 67yo male with CKD, DM, hx of TAVR and Afib here for AMS and fever. Had another episode of low grade fever and profound weakness but no altered mental status. No neck and back pain. Feels great today and requesting discharge Exam Narrative: AF 98.9 152/95 96 18 96% ra Gen - NARD sitting up in the chair Chest - CTA bilaterally, nml RR CV -Irregularly irregular Abd - Soft, NT/ND, Positive BS Back - on c/t/l/s pain to palpation Ext - trace pedal edema Neuro - Alert and oriented. Nonfocal exam. Dysconjugate gaze Psych - Nml mood and affect Skin - Warm and dry. No rash. Few dreied small eschars noted right LE and left arm Objective Data Vital Signs Vital Signs: Vital Signs - 24 hr 08/30/22 14:00 08/30/22 16:49 08/30/22 21:19 Temperature 98.8 F 98.2 F Pulse Rate 78 54 L 87 Respiratory Rate 16 16 Blood Pressur
[2022-08-31] MEDS: INSULIN ASPART (*BKC) 100 UNITS/ML SUB-Q ×2 (12:34→16:57)
[2022-08-31 12:38] LABS: Strep Group A RT-PCR Not Detected (Negative)
[2022-08-31] MEDS: ACETAMINOPHEN 325 MG TABLET 650 MG PO (15:32)
[2022-08-31] MEDS: cefTRIAXone 2 GM in SODIUM CHLORIDE 0.9% IV 100 ML 200 ML IVPB (15:32)
[2022-08-31 16:06] LABS: Glucose Point of Care 234 mg/dl (65-105)
[2022-08-31 17:05] LABS: Glucose Point of Care 266 mg/dl (65-105)
[2022-08-31 21:00] LABS: Glucose Point of Care 163 mg/dl (65-105)
[2022-08-31] MEDS: ATORVASTATIN 40 MG TABLET 80 MG PO (21:13)
[2022-09-01] VITALS (11 sets, daily range): BP systolic 123–156; BP diastolic 79–109; PULSE 58–106; RESP 13–18; TEMP 36.3–37; O2SAT 95–100
--- NOTE | 2022-09-01 | ECHO_ITS ---
Patient Info Name: Wesley Haro Self Age: 67 years : 1955 Gender: Male Ht: 74 in Wt: 239 lbs BSA: 2.40 m2 HR: 78 bpm BP: 150 / 76 mmHg Heart Rhythm: Atrial Fibrillation Technical Quality: Poor Exam Date: 09/01/2022 9:41 AM Exam Location: [facility] Exam Room: [facility] Patient Status: Inpatient Admit Date: 08/31/2022 Staff Ordering Physician: Glenys Marcus DO Marriage Counselor Minister: Sandra Rojas RDCS Attending Provider: Glenys Marcus DO Referring Physician: Amrit BOWERS; Exam Type: CA echo dop color flow w con Study Info Indications - BACTEREMIA AORTIC VALVE REPLACEMENT Complete two-dimensional, color flow and Doppler transthoracic echocardiogram is performed with contrast to opacify the left ventricle and to improve the deliniation of the left ventricle endocardial borders. Contrast/Agitated Saline Contrast/Ag. Saline: Definity Amount: 2.00 ml Administered By: Rosa Bonds RDCS Existing IV Access: Yes IV Access Condition: patent with no signs of infiltration Reason for Poor Study: patient body habitus Summary 1. Left ventricular systolic function is normal, estimated at 65-70%. 2. Right ventricular systolic function is normal. 3. Left atrial chamber dimension is mildly enlarged. 4. Right atrial chamber dimension is mildly enlarged. 5. Bioprosthetic aortic valve from TAVR is seen, however, not well visualized. 6. No significant valvular disease noted. Left Ventricle Left ventricular chamber dimension is normal. Left ventricular systolic function is normal, estimated at 65-70%. There is no increased left ventricular wall thickness. Right Ventricle Right ventricular chamber dimension is normal. Right ventricular systolic function is normal. Left Atria Left atrial chamber dimension is mildly enlarged. Right Atria Right atrial chamber dimension is mildly enlarged. Atrial Septum Intact interatrial septum visualized by color flow imaging. Aortic Valve The [place] TAVR aortic valve is not well visualized. There is no [place] TAVR aortic valve stenosis. There is no regurgitation of the [place] TAVR aortic valve. Pulmonic Valve The pulmonic valve is not well visualized. Mitral Valve The mitral valve has normal leaflets. There is no mitral valve stenosis. There is no mitral valve regurgitation. Tricuspid Valve The tricuspid valve leaflets are normal. There is no significant tricuspid valve stenosis. There is trace tricuspid valve regurgitation. Pericardium/Pleural There is no pericardial effusion. Inferior Vena Cava Dilated inferior vena cava with >50% collapse upon inspiration consistent with elevated right atrial pressure. Aorta The aortic root size at the sinus of Valsalva is not well visualized. Left Ventricular Outflow Tract Name Value Normal LVOT 2D LVOT Diameter 2.10 cm LVOT Doppler LVOT Peak Gradient 6 mmHg LVOT Mean Gradient 3 mmHg LVOT VTI 21.49 cm LVOT VTI/AV VTI Ratio
[2022-09-01 05:38] LABS: Albumin Level 2.8 g/dL (3.5-5.1); Anion Gap 8 mmol/L (8-16); Blood Urea Nitrogen 32 mg/dL (9-20); Calcium 7.9 mg/dL (8.4-10.2); Carbon Dioxide 23 mmol/L (22-30); Chloride 101 mmol/L (98-107); Estimated CRCL calculation 44 ml/min; Estimated Glomerular Filt Rate 35; Glucose 169 mg/dL (65-110); Phosphorus 3.3 mg/dL (2.5-4.5); Potassium 3.5 mmol/L (3.4-5.0); Sodium 132 mmol/L (137-145)
[2022-09-01 05:39] LABS: Basophils Absolute Auto 0.1 K/mm3 (0.0-0.1); Basophils Percent Auto 0.6 % (0.2-1.2); Eosinophils Absolute Auto 0.1 K/mm3 (0-0.3); Eosinophils Percent Auto 1.3 % (0-4.4); Hematocrit 37.3 % (42.0-52.0); Hemoglobin 12.3 g/dL (14.0-18.0); Immature Granulocyte Absolute 0.11 K/mm3 (0.00-0.031); Immature Granulocyte Percent A 1.1 % (0-0.5); Lymphocytes Absolute Auto 1.48 K/mm3 (0.9-3.2); Lymphocytes Percent Auto 14.2 % (18.3-44.2); Mean Corpuscular Hemoglobin 31.3 pg (26-34); Mean Corpuscular Volume 94.9 fl (80-100); Mean Platelet Volume 10.9 fl (7.4-10.4); Monocytes Absolute Auto 0.9 K/mm3 (0.1-0.6); Monocytes Percent Auto 8.8 % (2.6-8.5); Neutrophils Absolute Auto 7.7 K/mm3 (1.3-6.7); Platelet Count Result 221 k/mm3 (150-375); Red Blood Count 3.93 M/mm3 (4.6-6.20); Red Cell Distribution Width 13.3 % (11.5-14.5); White Blood Count 10.4 K/mm3 (4.5-10.0)
[2022-09-01 09:09] LABS: Glucose Point of Care 168 mg/dl (65-105)
[2022-09-01] MEDS: PERFLUTREN LIPID MICROSPHERES 1.5 ML VIAL DILUTED TO 10 ML TOTAL VOLUME IV PUSH (09:45)
[2022-09-01] MEDS: EZETIMIBE 10 MG TABLET PO (10:24)
[2022-09-01] MEDS: METOPROLOL SUCCINATE EXT REL 50 MG TABCR PO ×2 (10:24→17:50)
[2022-09-01] MEDS: MAGNESIUM OXIDE 400 MG TABLET PO (10:25)
[2022-09-01] MEDS: APIXABAN 2.5 MG TABLET PO ×2 (10:25→17:50)
[2022-09-01] MEDS: EMPAGLIFLOZIN 10 MG TABLET PO (10:25)
[2022-09-01] MEDS: TAMSULOSIN HCL 0.4 MG CAPSULE PO (10:25)
[2022-09-01] MEDS: amLODIPine BESYLATE 5 MG TABLET PO (10:25)
[2022-09-01] MEDS: INSULIN GLARGINE (*BKC) 100 UNITS/ML 10 UNITS SUB-Q (10:26)
[2022-09-01] MEDS: ASPIRIN 81 MG ENTERIC TABLET PO (10:26)
--- NOTE | 2022-09-01 10:38 | PM.IMPN ---
Progress Note: A&P Assessment and Plan (1) Septicemia: Code(s): A41.9 - Sepsis, unspecified organism Status: Acute Assessment and Plan: Patient presented with fall due to fever and found to have septicemia present on admission with fevers, elevated WBC, tachycardia, tachypnea and positive BCx. Lactic acid level normal but CRP 14 and Procalcitonin 7.2. -Status post TAVR for using bioprosthesis (~10/27/21) -UA not consistent with UTI. -Influenza, RSV and COVID negative -CXR clear. -WBC up to 23K -Blood cultures are positive for Strept gallolyticus (4 bottles), Staph hominis (from both aerobic bottles only). Rocephin and Vancomycin started on 08/30. WBC down to 10K. The patient did not have any furhter symptoms for the past 24 hours. He remains afebrile now. Tylenol has been ordered as needed for fever. Despite multiple organisms, suspect BCx are real to explain his symptoms. Repeat BCx. Plan for MIGUEL to exclude endocarditis. Continue Rocephin and Vanco. (2) Leukocytosis: Qualifiers: Leukocytosis type: leukemoid reaction Qualified Code(s): D72.823 - Leukemoid reaction Code(s): D72.829 - Elevated white blood cell count, unspecified Status: Acute Assessment and Plan: [place] related to above. Follow (3) Fall from ground level: Code(s): W18.30XA - Fall on same level, unspecified, initial encounter Status: Acute Assessment and Plan: [place] related to fever and bacteremia. CT head negative for acute findings. Cervical spine CT also negative for acute findings. Continue fall precautions. (4) Type 2 diabetes mellitus with hyperglycemia, without long-term current use of insulin: Code(s): E11.65 - Type 2 diabetes mellitus with hyperglycemia Status: Acute Assessment and Plan: The patient's blood glucose was reviewed on 09/01 Glucose better this morning. Continue AccuCheks covering with sliding scale. Hypoglycemia protocol available as needed. Holding Amaryl. Continue Lantus. (5) CKD (chronic kidney disease): Qualifiers: Chronic kidney disease stage: stage 3 (moderate) Chronic kidney disease stage 3 subtype: stage 3b (GFR 30-44) Qualified Code(s): N18.32 - Chronic kidney disease, stage 3b Code(s): N18.9 - Chronic kidney disease, unspecified Status: Acute Assessment and Plan: Patient does have chronic kidney disease but creatinine remaining stable and at baseline. Follow (6) Atrial fibrillation: Onset Date: ~2009 Qualifiers: Atrial fibrillation type: permanent Qualified Code(s): I48.21 - Permanent atrial fibrillation Code(s): I48.91 - Unspecified atrial fibrillation Status: Acute Assessment and Plan: The patient is in AFib but is rate controlled. Continue home metoprolol XL and Eliquis. (7) Essential hypertension: Code(s): I10 - Essential (primary) hypertension Status: Acute Assessment and Plan: Patient's blood pressure has been relatively stable but with wide range. Follow. Plan Patient does have some mild hyponatremia likely due to hypovolemia. Sodium stable. Follow Subjective Date/time seen: 09/01/22 10:38 Interval history: 67yo male with CKD, DM, hx of TAVR and Afib here for AMS and fever. Feeling better. No fever or chills. No feeling of profound weakness or presyncope. Symptoms have been going on for about 3weeks. Exam Narrative: AF 98.6 148/80 74 18 98% ra Gen - NARD Chest - CTA bilaterally, nml RR CV -Irregularly irregular Abd - Soft, NT/ND, Positive BS Ext - trace pedal edema. No splinter nail hemorrhages, osler or JW Psych - Nml mood and affect Skin - Warm and dry. No rash. Few dried small eschars noted right LE and left arm Objective Data Vital Signs Vital Signs: Vital Signs - 24 hr 08/31/22 14:57 08/31/22 15:32 08/31/22 16:39 Temperature 99.1 F 99.1 F 98.2 F Pulse Rate 67
--- NOTE | 2022-09-01 12:24 | PM.CNCAR ---
Assessment and Plan Assessment and plan (1) Septicemia: Code(s): A41.9 - Sepsis, unspecified organism Status: Acute (2) Atrial fibrillation: Onset Date: ~2009 Qualifiers: Atrial fibrillation type: permanent Qualified Code(s): I48.21 - Permanent atrial fibrillation Code(s): I48.91 - Unspecified atrial fibrillation Status: Acute (3) Status post transcatheter aortic valve replacement (TAVR) using bioprosthesis: Onset Date: ~10/27/21 Code(s): Z95.3 - Presence of xenogenic heart valve Status: Acute Plan MIGUEL done this afternoon, no periprocedural complications. Patient tolerated procedure well. No evidence of valvular vegetations. For his AFIB, continue Eliquis and Metoprolol. Patient to follow-up with Dr. Pereyra as an outpatient. Cardiology will sign off at this time. History of Present Illness History of Present Illness Consult date/time: 09/01/22 12:24 Requesting physician: Bar Funk MD Consult reason: Other (Bacteremia, needs MIGUEL) Reason For Visit: Fever Narrative: We are being consulted for MIGUEL for bacteremia. This is a 67-year-old male with a history of atrial fibrillation, severe aortic stenosis s/p TAVR with a 29mm [place] S3 10/27/[address] Pereyra in our cardiology clinic. Patient initially presented to the ER with fall and weakness. His was found with bacteremia with Strep gallolyticus and Staph hominis. Given his bioprosthetic aortic valve, we are asked to perform a MIGUEL. Patient denies any chest pain, palpitations, shortness of breath, orthopnea, difficulty swallowing, nausea/vomiting. Last ate food around 10PM last night. Has been NPO since then. Review of Systems Review of Systems: 12-point ROS obtained. Negative, unless stated in HPI. [facility] Past Medical History Medical History Actinic keratosis Aortic stenosis Status post TAVR repeat echo 05/01/2022: Moderate concentric left ventricular hypertrophy, normal global left ventricular systolic function with EF of 60%, basal inferior segment hypokinesis, mitral valve leaflets mildly thickened, mild mitral valve regurgitation, aortic valve not well-visualized peak gradient 23 mean gradient 12 valve area 1.07, no aortic regurgitation, normal appearing aortic valve prosthesis gradients normal for valve type and size, mild pulmonary hypertension with RVSP of 35, mild tricuspid regurgitation, atrial fibrillation, technically difficult study with limited views Atrial fibrillation (~2009) Chronic Basal cell carcinoma (BCC) of face CKD (chronic kidney disease) Coronary artery disease Left heart catheterization mild nonobstructive coronary artery disease September 2021 Diabetic peripheral neuropathy Diverticulosis Essential hypertension pen[facility] (current) use of anticoagulants Mixed hyperlipidemia Nonrheumatic aortic (valve) insufficiency Nonrheumatic aortic valve stenosis Normal colonoscopy (~2009) Demonstrating diverticulosis and internal hemorrhoids Obstructive sleep apnea Did not tolerate CPAP Type 2 diabetes mellitus Surgical History Surgical History (Updated 09/01/22 @ 12:31 by Sylwia Wilson MD) H/O inguinal hernia repair (~1979) History of ankle surgery (~1989) History of lumbar surgery (~1985) History of sleeve gastrectomy (04/2016) Status post transcatheter aortic valve replacement (TAVR) using bioprosthesis (~10/27/21) 29 mm [place] Maged 3 ultra Family History Family History Sibling Family history of cardiovascular disease Diabetes mellitus Family history of malignant neoplasm of breast in first degree relative Family history of coronary artery disease Carcinoma of colon Hypertension Cerebrovascular accident Father Family history of malignant neoplasm Grandparent Family history of kidney disease Other Family history of congestive heart failure
--- NOTE | 2022-09-01 12:33 | WPDMODSED ---
Moderate Sedation Note-Pt Data Patient Data Diagnosis: Bacteremia Present Complaint: Bacteremia Procedure to be performed/Plan: MIGUEL Allergies Allergy/AdvReac Type Severity Reaction Status Date / Time Sulfa (Sulfonamide Allergy Unknown Skin Verified 03/28/22 09:18 Antibiotics) Reaction Home Medications Medication Instructions Recorded Confirmed Type tadalafil 10 mg tablet (Cialis) 10 mg PO DAILY PRN sexual activity 05/07/20 08/30/22 Rx #30 tabs metoprolol succinate 50 mg 50 mg PO BID #60 tabs 01/03/22 08/30/22 Rx tablet,extended release 24 hr glimepiride 4 mg tablet 2 mg PO DAILY #90 tabs 03/07/22 08/30/22 Rx empagliflozin 10 mg tablet 10 mg PO DAILY #30 tabs 08/04/22 08/30/22 Rx (Jardiance) amlodipine 5 mg tablet 5 mg PO DAILY 08/30/22 08/30/22 History apixaban 5 mg tablet (Eliquis) 2.5 mg PO BID 08/30/22 08/30/22 History ascorbate calcium (vitamin C) 500 1,000 mg PO DAILY 08/30/22 08/30/22 History mg tablet aspirin 81 mg tablet 81 mg PO DAILY 08/30/22 08/30/22 History ezetimibe 10 mg tablet 10 mg PO DAILY 08/30/22 08/30/22 History magnesium 200 mg tablet 400 mg PO DAILY 08/30/22 08/30/22 History multivitamin (Daily Multi-Vitamin 1 tablet PO DAILY 08/30/22 08/30/22 History tablet) vitamin B12 2,500 mcg-folic acid 1 tablet PO DAILY 08/30/22 08/30/22 History 400 mcg disintegrating tablet Current Medications: Active Medications Acetaminophen (Acetaminophen 325 Mg Tablet) 650 mg PO Q4H PRN PRN Reason: Mild Pain (1-3) or Fever Last Admin: 08/31/22 15:32 Dose: 650 mg Amlodipine Besylate (Amlodipine Besylate 5 Mg Tablet) 5 mg PO DAILY [facility] Last Admin: 09/01/22 10:25 Dose: 5 mg Apixaban (Apixaban 2.5 Mg Tablet) 2.5 mg PO BID [facility] Last Admin: 09/01/22 10:25 Dose: 2.5 mg Aspirin (Aspirin 81 Mg Enteric Tablet) 81 mg PO QAM [facility] Last Admin: 09/01/22 10:26 Dose: 81 mg Atorvastatin Calcium (Atorvastatin 40 Mg Tablet) 80 mg PO HS [facility] Last Admin: 08/31/22 21:13 Dose: 80 mg Dextrose (Dextrose 50% 25 Gm/50 Ml Syringe) 12.5 gm IV PUSH PRN PRN; Protocol PRN Reason: Hypoglycemia Ezetimibe (Ezetimibe 10 Mg Tablet) 10 mg PO DAILY [facility] Last Admin: 09/01/22 10:24 Dose: 10 mg Empagliflozin (Empagliflozin 10 Mg Tablet) 10 mg PO DAILY [facility] Last Admin: 09/01/22 10:25 Dose: 10 mg Glucagon (Glucagon For Inj 1 Mg Vial) 1 mg IM PRN PRN; Protocol PRN Reason: Hypoglycemia Glucose (Glucose Oral Gel 15 Gm Of Glucse In 37.5 Gm Tube) 15 gm PO PRN PRN; Protocol PRN Reason: Hypoglycemia Dextrose (Dextrose 5% 1,000 Ml) 1,000 mls @ 100 mls/hr IVPB PRN PRN; Protocol PRN Reason: Hypoglycemia Ceftriaxone Sodium 2 gm/ (Sodium Chloride) 100 mls @ 200 mls/hr IVPB Q24H [facility] Last Infusion: 08/31/22 16:02 Dose: Infused Vancomycin HCl (Vancomycin 1,500 Mg/D5w 500 Ml) 1,500 mg in 500 mls @ 333.333 mls/hr IVPB Q24H [facility] Last Infusion: 08/31/22 18:26 Dose: Infused Insulin Aspart (Insulin Aspart (*Bkc) 100 Units/Ml) 3 - 6 units SUB-Q TIDWM [facility]; Protocol Last Admin: 09/01/22 09:22 Dose: Not Given Insulin Glargine (Insulin Glargine (*Bkc) 100 Units/Ml) 10 units SUB-Q DAILY [facility] Last Admin: 09/01/22 10:26 Dose: 10 units Magnesium Oxide (Magnesium Oxide 400 Mg Tablet) 400 mg PO DAILY [facility] Last Admin: 09/01/22 10:25 Dose: 400 mg Metoprolol Succinate (Metoprolol Succinate Ext Rel 50 Mg Tabcr) 50 mg PO BID [facility] Last Admin: 09/01/22 10:24 Dose: 50 mg Tamsulosin HCl (Tamsulosin Hcl 0.4 Mg Capsule) 0.4 mg PO QAM [facility] Last Admin: 09/01/22 10:25 Dose: 0.4 mg Sedation/Anesthesia: No previous sedation/anesthesia problems (including family history). [facility] Past Medical History Medical History Actinic keratosis Aortic stenosis Status post TAVR repeat echo 05/01/2022: Moderate concentric left ventricular hypertrophy, normal global left ventricular systolic function with EF of 60%, basal inferior segment hypokinesis, mitral valve l
--- NOTE | 2022-09-01 12:34 | WPDTEECHO ---
MIGUEL TransEsophageal Echocardiogram Date of procedure: 09/01/22 Procedure Type: Date of Procedure: 09/01/2022 Brief History Of Present Illness: Patient is a pleasant 67-year-old male with a history of severe aortic stenosis s/p TAVR 10/2021 with a 29mm [place]anca S3 valve who is referred for transesophageal echocardiogram for further evaluation for valvular vegetations in the setting of bacteremia. Procedure In Detail: After verbal and written informed consent was obtained, the patient risks, benefits, and alternatives explained in detail. The patient agreed to proceed with the plan of care as outlined above.?The patient was evaluated at bedside in the [facility] procedure room.?The posterior oropharynx, neck, and jaw angle all within normal limits on examination. Lungs were clear to auscultation. See pre-sedation note for further details. The patient was then placed in the appropriate 30 to 45 degree angle supine position at a slight left lateral decubitus position.?Patient was monitored throughout the study with telemetry, oxygen saturation, end-tidal CO2 monitoring, blood pressure, heart rate, and respirations.? The posterior hypopharynx was then locally anesthetized using repeated administration of Hurricaine spray as well as gargled viscous lidocaine.? After local anesthetic of the posterior hypopharynx was achieved and the oral bite block placed, moderate sedation was administered.? After confirmation of adequate moderate sedation, the transesophageal echocardiogram probe was advanced through the oral bite block into the posterior hypopharynx and into the esophagus easily and without complication.? Multiple, multiplanar echocardiographic images were obtained in multiple standard re- projections.? At the conclusion of the study, the transesophageal echocardiogram probe was removed easily and without complication.? The patient tolerated the procedure well without difficulty. Moderate Sedation/Anesthesia administration: Patient reports no prior problems with sedation/anesthesia. Please see pre-sedation noted for physical examination documentation. As noted above, after adequate local anesthesia of the posterior hypopharynx was achieved, a total of?3mg intravenous Versed and a total of 50mcg intravenous Fentanyl in multiple divided doses was administered for moderate sedation.? Sedation start time was 12:10 and end time was 12:22 for a total intra-service/procedure face-face time of 12 minutes.? Sedation was administered by a qualified/certified observer?Leisa Saunders RN under my supervision with intra-procedure [id number] observation and management throughout the entirety of the procedure.? There were no other issues or complications and patient tolerated the procedure well. See post-anesthesia documentation. FINDINGS: LEFT VENTRICLE: Size and systolic function were within normal limits without wall motion abnormalities with ejection fraction of 50-55%. RIGHT VENTRICLE:? Size and systolic function within normal limits. LEFT ATRIUM: Mild-moderately dilated. RIGHT ATRIUM: Normal size. INTERATRIAL SEPTUM: ? Interatrial septum is anatomically normal without evidence of shunt with color-flow Doppler. MITRAL VALVE: ? Mitral valve is anatomically normal with preserved leaflet excursion. No evidence of valvular vegetation. AORTIC VALVE: Bioprosthetic aortic valve is present (29mm [place] S3) with good leaflet motion. No evidence of valvular vegetation or abscess. TRICUSPID VALVE: The tricuspid valve is anatomically normal with normal leaflet excursion with trivial regurgitation identified.? No mobile elements identified. No evidence of valvular vegetation. PULMONIC VALVE: Pulmonic valve was not well visualized, however, no evidence of gross vegetations. LEFT ATRIAL APPENDAGE: Anatomically normal structure with prominent pectinate muscles without thrombus or vegetation identified. PERICARDIUM: The pericardium was anatomically normal without significant pe
[2022-09-01 12:59] LABS: Glucose Point of Care 135 mg/dl (65-105)
[2022-09-01] MEDS: cefTRIAXone 2 GM in SODIUM CHLORIDE 0.9% IV 100 ML 200 ML IVPB (15:46)
[2022-09-01 17:34] LABS: Glucose Point of Care 230 mg/dl (65-105)
[2022-09-01] MEDS: INSULIN ASPART (*BKC) 100 UNITS/ML SUB-Q (17:51)
[2022-09-01] MEDS: ATORVASTATIN 40 MG TABLET 80 MG PO (20:43)
[2022-09-01 21:06] LABS: Glucose Point of Care 415 mg/dl (65-105)
[2022-09-02 04:56] VITALS: BP 141/98; PULSE 76; RESP 18; TEMP 36.6; O2SAT 97
[2022-09-02 05:53] LABS: Hematocrit 37.9 % (42.0-52.0); Hemoglobin 12.6 g/dL (14.0-18.0); Mean Corpuscular HGB Conc 33.2 g/dl (32-36); Mean Corpuscular Hemoglobin 31.7 pg (26-34); Mean Corpuscular Volume 95.2 fl (80-100); Mean Platelet Volume 10.4 fl (7.4-10.4); Platelet Count Result 221 k/mm3 (150-375); Red Blood Count 3.98 M/mm3 (4.6-6.20); Red Cell Distribution Width 13.1 % (11.5-14.5); White Blood Count 9.2 K/mm3 (4.5-10.0)
[2022-09-02 06:05] LABS: Anion Gap 7 mmol/L (8-16); Blood Urea Nitrogen 26 mg/dL (9-20); Carbon Dioxide 24 mmol/L (22-30); Chloride 101 mmol/L (98-107); Estimated CRCL calculation 46 ml/min; Estimated Glomerular Filt Rate 38; Glucose 177 mg/dL (65-110); Potassium 3.3 mmol/L (3.4-5.0); Sodium 132 mmol/L (137-145)
[2022-09-02 08:13] LABS: Glucose Point of Care 168 mg/dl (65-105)
[2022-09-02] MEDS: amLODIPine BESYLATE 5 MG TABLET PO (09:46)
[2022-09-02] MEDS: TAMSULOSIN HCL 0.4 MG CAPSULE PO (09:47)
[2022-09-02] MEDS: EMPAGLIFLOZIN 10 MG TABLET PO (09:47)
[2022-09-02] MEDS: MAGNESIUM OXIDE 400 MG TABLET PO (09:47)
[2022-09-02] MEDS: APIXABAN 2.5 MG TABLET PO ×2 (09:47→17:22)
[2022-09-02] MEDS: EZETIMIBE 10 MG TABLET PO (09:47)
[2022-09-02] MEDS: ASPIRIN 81 MG ENTERIC TABLET PO (09:47)
[2022-09-02 09:48] VITALS: PULSE 71
[2022-09-02] MEDS: METOPROLOL SUCCINATE EXT REL 50 MG TABCR PO ×2 (09:48→17:22)
[2022-09-02] MEDS: INSULIN GLARGINE (*BKC) 100 UNITS/ML 10 UNITS SUB-Q (09:49)
--- NOTE | 2022-09-02 12:11 | PM.IMPN ---
Progress Note: A&P Assessment and Plan (1) Septicemia: Code(s): A41.9 - Sepsis, unspecified organism Status: Acute Assessment and Plan: Patient presented with fall due to fever and found to have septicemia present on admission with fevers, elevated WBC, tachycardia, tachypnea and positive BCx. Lactic acid level normal but CRP 14 and Procalcitonin 7.2. -Status post TAVR for using bioprosthesis (~10/27/21) -UA not consistent with UTI. -Influenza, RSV and COVID negative -CXR clear. 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 There is no association with this bacteria and colonic neoplasm (unlike S. Bovis Biotype I). We will encourage colonoscopy once he is well. -MIGUEL negative for Endocarditis. Rocephin and Vancomycin started on 08/30. WBC normal now. The patient not having any further symptoms. He remains afebrile. Tylenol has been ordered as needed for fever. Despite multiple organisms, suspect BCx are real to explain his symptoms. Strept is susceptible to Rocephin; Staph susceptibility is pending. Repeat BCx NGTD. Continue Rocephin and Vanco. (2) Leukocytosis: Qualifiers: Leukocytosis type: leukemoid reaction Qualified Code(s): D72.823 - Leukemoid reaction Code(s): D72.829 - Elevated white blood cell count, unspecified Status: Acute Assessment and Plan: [place] related to above. Resolved (3) Fall from ground level: Code(s): W18.30XA - Fall on same level, unspecified, initial encounter Status: Acute Assessment and Plan: [place] weakness related to fever and bacteremia. CT head negative for acute findings. Cervical spine CT also negative for acute findings. Continue fall precautions. (4) Type 2 diabetes mellitus with hyperglycemia, without long-term current use of insulin: Code(s): E11.65 - Type 2 diabetes mellitus with hyperglycemia Status: Acute Assessment and Plan: The patient's blood glucose was reviewed on 09/02 Glucose reasonable except 415 last night. Continue AccuCheks covering with sliding scale. Hypoglycemia protocol available as needed. Holding Amaryl. Continue Lantus. (5) CKD (chronic kidney disease): Qualifiers: Chronic kidney disease stage: stage 3 (moderate) Chronic kidney disease stage 3 subtype: stage 3b (GFR 30-44) Qualified Code(s): N18.32 - Chronic kidney disease, stage 3b Code(s): N18.9 - Chronic kidney disease, unspecified Status: Acute Assessment and Plan: Patient does have chronic kidney disease but creatinine remaining stable and at baseline. Continue to monitor. (6) Atrial fibrillation: Onset Date: ~2009 Qualifiers: Atrial fibrillation type: permanent Qualified Code(s): I48.21 - Permanent atrial fibrillation Code(s): I48.91 - Unspecified atrial fibrillation Status: Acute Assessment and Plan: The patient with rate controlled AFib. Continue home metoprolol XL and Eliquis. (7) Essential hypertension: Code(s): I10 - Essential (primary) hypertension Status: Acute Assessment and Plan: Patient's blood pressure has been relatively stable but with wide range. Follow. Plan Patient with mild hyponatremia likely due to hypovolemia. Consider also related to D5W fluids from abx. Sodium stable. Follow Subjective Date/time seen: 09/02/22 12:11 Interval history: 67yo male with CKD, DM, hx of TAVR and Afib here for AMS and fever and found to have bacteremia. Slept well last night. No weakness events. No n/v. no fevers. Slight cough but ostly nonproductive and more chronic than acute. Exam Narrative: AF 98.0 141/98 71 18 97% ra Gen - NARD Chest - few basilar rhonchi o/w clear CV - Irregularly irregular Abd - So
[2022-09-02 12:16] LABS: Glucose Point of Care 183 mg/dl (65-105)
[2022-09-02 14:00] VITALS: BP 150/75; PULSE 91; RESP 18; TEMP 37.3; O2SAT 98
[2022-09-02 17:14] VITALS: PULSE 91; O2SAT 95
[2022-09-02 17:22] VITALS: PULSE 70
[2022-09-02] MEDS: cefTRIAXone 2 GM in SODIUM CHLORIDE 0.9% IV 100 ML 200 ML IVPB (17:22)
[2022-09-02 17:25] LABS: Glucose Point of Care 260 mg/dl (65-105)
[2022-09-02] MEDS: INSULIN ASPART (*BKC) 100 UNITS/ML SUB-Q (17:27)
[2022-09-02 17:41] LABS: Vancomycin Trough 11.9 ug/mL (10.0-20.0)
[2022-09-02 19:37] VITALS: BP 138/80; PULSE 63; RESP 18; TEMP 36.5; O2SAT 99
[2022-09-02] MEDS: ATORVASTATIN 40 MG TABLET 80 MG PO (20:24)
[2022-09-02 20:51] LABS: Glucose Point of Care 217 mg/dl (65-105)
[2022-09-03 03:53] LABS: Pneumococcal Antigen Urine Not Detected (Not Detected)
[2022-09-03 05:29] VITALS: BP 146/88; PULSE 74; RESP 20; TEMP 36.9; O2SAT 97
[2022-09-03 07:01] LABS: Anion Gap 8 mmol/L (8-16); Blood Urea Nitrogen 25 mg/dL (9-20); Calcium 8.1 mg/dL (8.4-10.2); Carbon Dioxide 24 mmol/L (22-30); Chloride 102 mmol/L (98-107); Estimated CRCL calculation 46 ml/min; Estimated Glomerular Filt Rate 38; Glucose 157 mg/dL (65-110); Potassium 3.5 mmol/L (3.4-5.0); Sodium 134 mmol/L (137-145)
[2022-09-03 08:09] LABS: Glucose Point of Care 152 mg/dl (65-105)
[2022-09-03] MEDS: EZETIMIBE 10 MG TABLET PO (09:54)
[2022-09-03] MEDS: APIXABAN 2.5 MG TABLET PO ×2 (09:54→17:29)
[2022-09-03] MEDS: amLODIPine BESYLATE 5 MG TABLET PO (09:55)
[2022-09-03] MEDS: EMPAGLIFLOZIN 10 MG TABLET PO (09:55)
[2022-09-03] MEDS: TAMSULOSIN HCL 0.4 MG CAPSULE PO (09:55)
[2022-09-03] MEDS: MAGNESIUM OXIDE 400 MG TABLET PO (09:55)
[2022-09-03] MEDS: ASPIRIN 81 MG ENTERIC TABLET PO (09:55)
[2022-09-03 09:56] VITALS: PULSE 82
[2022-09-03] MEDS: METOPROLOL SUCCINATE EXT REL 50 MG TABCR PO ×2 (09:56→17:29)
[2022-09-03] MEDS: INSULIN GLARGINE (*BKC) 100 UNITS/ML 10 UNITS SUB-Q (10:01)
--- NOTE | 2022-09-03 10:52 | PM.IMPN ---
Progress Note: A&P Assessment and Plan (1) Septicemia: Code(s): A41.9 - Sepsis, unspecified organism Status: Acute Assessment and Plan: Patient presented with fall due to fever and found to have septicemia present on admission with fevers, elevated WBC, tachycardia, tachypnea and positive BCx. Lactic acid level normal but CRP 14 and Procalcitonin 7.2. -Status post TAVR for using bioprosthesis (~10/27/21) -UA not consistent with UTI. -Influenza, RSV and COVID negative -CXR clear. 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 There is no association with this bacteria and colonic neoplasm (unlike S. Bovis Biotype I). We will encourage colonoscopy once he is well. -MIGUEL negative for Endocarditis. Rocephin and Vancomycin started on 08/30. WBC normal now. The patient not having any further symptoms. He remains afebrile. Despite multiple organisms, suspect BCx are real to explain his symptoms. Strept is susceptible to Rocephin; Staph susceptibility noted. Repeat BCx NGTD. Change to Cefazolin. Plan for Midline tomorrow and will need 14 days of IV abx starting on 09/01 through 09/14/22. (2) Leukocytosis: Qualifiers: Leukocytosis type: leukemoid reaction Qualified Code(s): D72.823 - Leukemoid reaction Code(s): D72.829 - Elevated white blood cell count, unspecified Status: Acute Assessment and Plan: [place] related to above. Resolved (3) Fall from ground level: Code(s): W18.30XA - Fall on same level, unspecified, initial encounter Status: Acute Assessment and Plan: [place] weakness related to fever and bacteremia. CT head negative for acute findings. Cervical spine CT also negative for acute findings. Continue fall precautions. (4) Type 2 diabetes mellitus with hyperglycemia, without long-term current use of insulin: Code(s): E11.65 - Type 2 diabetes mellitus with hyperglycemia Status: Acute Assessment and Plan: A1c 8.6 in January. The patient's blood glucose was reviewed on 09/03 Glucose reasonable Continue AccuCheks covering with sliding scale. Hypoglycemia protocol available as needed. Holding Amaryl. Continue Lantus. (5) CKD (chronic kidney disease): Qualifiers: Chronic kidney disease stage: stage 3 (moderate) Chronic kidney disease stage 3 subtype: stage 3b (GFR 30-44) Qualified Code(s): N18.32 - Chronic kidney disease, stage 3b Code(s): N18.9 - Chronic kidney disease, unspecified Status: Acute Assessment and Plan: Patient does have chronic kidney disease but creatinine remaining stable and at baseline. Edema noted but not unusual. Norvasc may be contributing., [place] DVT since already on Eliquis. Continue to monitor. (6) Atrial fibrillation: Onset Date: ~2009 Qualifiers: Atrial fibrillation type: permanent Qualified Code(s): I48.21 - Permanent atrial fibrillation Code(s): I48.91 - Unspecified atrial fibrillation Status: Acute Assessment and Plan: The patient with rate controlled AFib. Continue home metoprolol XL and Eliquis. (7) Essential hypertension: Code(s): I10 - Essential (primary) hypertension Status: Acute Assessment and Plan: Patient's blood pressure has been relatively stable but with wide range. Follow. Plan Patient with mild hyponatremia likely due to hypovolemia. Consider also related to D5W fluids from abx. Sodium improving. Subjective Date/time seen: 09/03/22 10:52 Interval history: 67yo male with CKD, DM, hx of TAVR and Afib here for AMS and fever and found to have bacteremia. Feels well. No CP or SOB. No n/v. No diarrhea. Exam Narrative: AF 98.4 146/88 82 20 97% ra Gen - NARD Chest - CTA bilaterally, nml RR CV -
[2022-09-03 11:32] LABS: Hemoglobin A1C 12.2 % (<5.7)
[2022-09-03 12:22] LABS: Glucose Point of Care 285 mg/dl (65-105)
[2022-09-03] MEDS: INSULIN ASPART (*BKC) 100 UNITS/ML SUB-Q ×2 (12:49→17:33)
[2022-09-03] MEDS: ceFAZolin 2 GM/D5W 50 ML 2 GM/50 ML BAG IVPB ×2 (13:02→21:14)
[2022-09-03 14:00] VITALS: BP 128/68; PULSE 72; RESP 18; TEMP 36.3; O2SAT 96
[2022-09-03 17:17] LABS: Glucose Point of Care 226 mg/dl (65-105)
[2022-09-03 17:29] VITALS: PULSE 76
[2022-09-03] MEDS: ATORVASTATIN 40 MG TABLET 80 MG PO (20:34)
[2022-09-03 20:54] VITALS: BP 150/84; PULSE 89; RESP 18; TEMP 36.6; O2SAT 98
[2022-09-03 21:02] LABS: Glucose Point of Care 186 mg/dl (65-105)
[2022-09-04] MEDS: ceFAZolin 2 GM/D5W 50 ML 2 GM/50 ML BAG IVPB ×3 (05:26→21:14)
[2022-09-04 05:33] VITALS: BP 159/89; PULSE 74; RESP 18; TEMP 36.4; O2SAT 97
[2022-09-04 08:21] LABS: Glucose Point of Care 162 mg/dl (65-105)
[2022-09-04] MEDS: amLODIPine BESYLATE 5 MG TABLET PO (10:09)
[2022-09-04] MEDS: TAMSULOSIN HCL 0.4 MG CAPSULE PO (10:09)
[2022-09-04] MEDS: EMPAGLIFLOZIN 10 MG TABLET PO (10:09)
[2022-09-04] MEDS: ASPIRIN 81 MG ENTERIC TABLET PO (10:09)
[2022-09-04] MEDS: APIXABAN 2.5 MG TABLET PO ×2 (10:09→18:02)
[2022-09-04 10:10] VITALS: PULSE 74
[2022-09-04] MEDS: METOPROLOL SUCCINATE EXT REL 50 MG TABCR PO ×2 (10:10→18:03)
[2022-09-04] MEDS: EZETIMIBE 10 MG TABLET PO (10:10)
[2022-09-04] MEDS: MAGNESIUM OXIDE 400 MG TABLET PO (10:10)
[2022-09-04] MEDS: INSULIN GLARGINE (*BKC) 100 UNITS/ML 10 UNITS SUB-Q (10:11)
--- NOTE | 2022-09-04 10:35 | PM.IMPN ---
Progress Note: A&P Assessment and Plan (1) Septicemia: Code(s): A41.9 - Sepsis, unspecified organism Status: Acute Assessment and Plan: Patient presented with fall due to fever and found to have septicemia present on admission with fevers, elevated WBC, tachycardia, tachypnea and positive BCx. Lactic acid level normal but CRP 14 and Procalcitonin 7.2. -Status post TAVR for using bioprosthesis (~10/27/21) -UA not consistent with UTI. -Influenza, RSV and COVID negative -CXR clear. 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 Source is probably skin vs GI. -RUQ showing GB sludge but no acute cholecystitis. No liver lesions. No abd pain to suggest colitis. 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 There is no association with this bacteria and colonic neoplasm (unlike S. Bovis Biotype I). We will encourage colonoscopy once he is well. -MIGUEL negative for Endocarditis. Rocephin and Vancomycin started on 08/30. WBC normal now. The patient not having any further symptoms. He remains afebrile. Despite multiple organisms, suspect BCx are real to explain his symptoms. Strept is susceptible to Rocephin; Staph susceptibility noted. Repeat BCx NGTD. Changed to Cefazolin. Plan for Midline today and will need 14 days of IV abx starting on 09/01 through 09/14/22. (2) Leukocytosis: Qualifiers: Leukocytosis type: leukemoid reaction Qualified Code(s): D72.823 - Leukemoid reaction Code(s): D72.829 - Elevated white blood cell count, unspecified Status: Acute Assessment and Plan: [place] related to above. Resolved (3) Fall from ground level: Code(s): W18.30XA - Fall on same level, unspecified, initial encounter Status: Acute Assessment and Plan: [place] weakness related to fever and bacteremia. CT head negative for acute findings. Cervical spine CT also negative for acute findings. Continue fall precautions. (4) Type 2 diabetes mellitus with hyperglycemia, without long-term current use of insulin: Code(s): E11.65 - Type 2 diabetes mellitus with hyperglycemia Status: Acute Assessment and Plan: A1c 12.2. The patient's blood glucose was reviewed on 09/04 Glucose elevated at times. Continue AccuCheks covering with sliding scale. Hypoglycemia protocol available as needed. Holding Amaryl. Advance Lantus. (5) CKD (chronic kidney disease): Qualifiers: Chronic kidney disease stage: stage 3 (moderate) Chronic kidney disease stage 3 subtype: stage 3b (GFR 30-44) Qualified Code(s): N18.32 - Chronic kidney disease, stage 3b Code(s): N18.9 - Chronic kidney disease, unspecified Status: Acute Assessment and Plan: Patient does have CKD but creatinine remaining stable and at baseline. Edema noted but not unusual. Norvasc may be contributing. Doubt DVT since already on Eliquis. Continue to monitor. Continue Trace busby (6) Atrial fibrillation: Onset Date: ~2009 Qualifiers: Atrial fibrillation type: permanent Qualified Code(s): I48.21 - Permanent atrial fibrillation Code(s): I48.91 - Unspecified atrial fibrillation Status: Acute Assessment and Plan: The patient with rate controlled AFib. Continue home metoprolol XL and Eliquis. (7) Essential hypertension: Code(s): I10 - Essential (primary) hypertension Status: Acute Assessment and Plan: Patient's blood pressure stable. Follow. Plan Patient with mild hyponatremia likely due to hypovolemia. Consider also related to D5W fluids from abx. Sodium improved Subjective Date/time seen: 09/04/22 10:35 Interval history: 67yo male with CKD, DM, hx of TAVR and Afib here for AMS and fever and found to have bacteremia. No problems overnight. No chest pain or shortness of breath. No
[2022-09-04] MEDS: LIDOCAINE HCL 1% LOCAL INJ 2 ML AMPUL 5 ML INFILTRATE (11:50)
[2022-09-04 12:50] LABS: Glucose Point of Care 173 mg/dl (65-105)
[2022-09-04 13:59] VITALS: BP 154/78; PULSE 69; RESP 16; TEMP 36.7; O2SAT 99
[2022-09-04] MEDS: CENTRAL LINE FLUSH 10 ML IV PUSH ×2 (14:11→21:15)
[2022-09-04 17:47] LABS: Glucose Point of Care 145 mg/dl (65-105)
[2022-09-04 21:07] LABS: Glucose Point of Care 200 mg/dl (65-105)
[2022-09-04] MEDS: ATORVASTATIN 40 MG TABLET 80 MG PO (21:14)
[2022-09-04 22:00] VITALS: BP 158/97; PULSE 48; RESP 16; TEMP 36.7; O2SAT 98
[2022-09-05 05:36] LABS: Anion Gap 6 mmol/L (8-16); Blood Urea Nitrogen 23 mg/dL (9-20); Calcium 8.3 mg/dL (8.4-10.2); Carbon Dioxide 28 mmol/L (22-30); Chloride 100 mmol/L (98-107); Estimated CRCL calculation 46 ml/min; Estimated Glomerular Filt Rate 38; Glucose 139 mg/dL (65-110); Potassium 3.7 mmol/L (3.4-5.0); Sodium 134 mmol/L (137-145)
[2022-09-05] MEDS: ceFAZolin 2 GM/D5W 50 ML 2 GM/50 ML BAG IVPB (05:43)
[2022-09-05] MEDS: CENTRAL LINE FLUSH 20 ML IV PUSH (05:43)
[2022-09-05] MEDS: CENTRAL LINE FLUSH 10 ML IV PUSH (05:44)
[2022-09-05 06:00] VITALS: BP 152/98; PULSE 70; RESP 16; TEMP 36.7; O2SAT 97
[2022-09-05 08:28] LABS: Glucose Point of Care 120 mg/dl (65-105)
[2022-09-05] MEDS: amLODIPine BESYLATE 5 MG TABLET PO (09:12)
[2022-09-05] MEDS: APIXABAN 2.5 MG TABLET PO (09:12)
[2022-09-05] MEDS: EMPAGLIFLOZIN 10 MG TABLET PO (09:12)
[2022-09-05] MEDS: ASPIRIN 81 MG ENTERIC TABLET PO (09:12)
[2022-09-05] MEDS: TAMSULOSIN HCL 0.4 MG CAPSULE PO (09:12)
[2022-09-05 09:13] VITALS: PULSE 68
[2022-09-05] MEDS: EZETIMIBE 10 MG TABLET PO (09:13)
[2022-09-05] MEDS: MAGNESIUM OXIDE 400 MG TABLET PO (09:13)
[2022-09-05] MEDS: METOPROLOL SUCCINATE EXT REL 50 MG TABCR PO (09:13)
[2022-09-05] MEDS: INSULIN GLARGINE (*BKC) 100 UNITS/ML 12 UNITS SUB-Q (09:38)
--- NOTE | 2022-09-05 10:02 | PM.DS ---
DS: Admitting Diagnosis Discharge Date September 05, 2022 Admitting Diagnosis Weakness DS: Discharge Diagnosis Discharge Diagnosis (1) Septicemia: Code(s): A41.9 - Sepsis, unspecified organism Status: Acute Assessment and Plan: Patient presented with fall due to fever and found to have septicemia present on admission with fevers, elevated WBC, tachycardia, tachypnea and positive BCx. Lactic acid level normal but CRP 14 and Procalcitonin 7.2. -Status post TAVR for using bioprosthesis (~10/27/21) -UA not consistent with UTI. -Influenza, RSV and COVID negative -CXR clear. 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 Source is probably skin vs GI. -RUQ showing GB sludge but no acute cholecystitis. No liver lesions. No abd pain to suggest colitis. 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 There is no association with this bacteria and colonic neoplasm (unlike S. Bovis Biotype I). We will encourage colonoscopy once he is well. -MIGUEL negative for Endocarditis. Rocephin and Vancomycin started on 08/30. WBC normal now. The patient not having any further symptoms. He remains afebrile. Despite multiple organisms, suspect BCx are real to explain his symptoms. Strept is susceptible to Rocephin; Staph susceptibility noted. Repeat BCx NGTD. Changed to Cefazolin. Plan for Midline today and will need 14 days of IV abx starting on 09/01 through 09/14/22. (2) Leukocytosis: Qualifiers: Leukocytosis type: leukemoid reaction Qualified Code(s): D72.823 - Leukemoid reaction Code(s): D72.829 - Elevated white blood cell count, unspecified Status: Acute Assessment and Plan: [place] related to above. Resolved (3) Fall from ground level: Code(s): W18.30XA - Fall on same level, unspecified, initial encounter Status: Acute Assessment and Plan: [place] weakness related to fever and bacteremia. CT head negative for acute findings. Cervical spine CT also negative for acute findings. Continue fall precautions. (4) Type 2 diabetes mellitus with hyperglycemia, without long-term current use of insulin: Code(s): E11.65 - Type 2 diabetes mellitus with hyperglycemia Status: Acute Assessment and Plan: A1c 12.2. The patient's blood glucose was reviewed on 09/04 Glucose elevated at times. Continue AccuCheks covering with sliding scale. Hypoglycemia protocol available as needed. Holding Amaryl. Advance Lantus. (5) CKD (chronic kidney disease): Qualifiers: Chronic kidney disease stage: stage 3 (moderate) Chronic kidney disease stage 3 subtype: stage 3b (GFR 30-44) Qualified Code(s): N18.32 - Chronic kidney disease, stage 3b Code(s): N18.9 - Chronic kidney disease, unspecified Status: Acute Assessment and Plan: Patient does have CKD but creatinine remaining stable and at baseline. Edema noted but not unusual. Norvasc may be contributing. Doubt DVT since already on Eliquis. Continue to monitor. Continue Trace hose (6) Atrial fibrillation: Onset Date: ~2009 Qualifiers: Atrial fibrillation type: permanent Qualified Code(s): I48.21 - Permanent atrial fibrillation Code(s): I48.91 - Unspecified atrial fibrillation Status: Acute Assessment and Plan: The patient with rate controlled AFib. Continue home metoprolol XL and Eliquis. (7) Essential hypertension: Code(s): I10 - Essential (primary) hypertension Status: Acute Assessment and Plan: Patient's blood pressure stable. Follow. Plan Patient with mild hyponatremia likely due to hypovolemia. Consider also related to D5W fluids from abx. Sodium improved DS: Summary Hospital Course Hospital Course: 67-year-old male with past medical history of chronic kidney disease, type 2 diabetes franc
== END 2022-09-05 11:19 | disposition home health service (06) | DRG 641 ==
LOC: ANHED 23:15 → ANH3MED 23:52
PROVIDERS: Emergency Medicine; Internal Medicine; Admitting Provider Internal Medicine; Emergency Provider Emergency Medicine; PCP Family Medicine; Visit Provider Student in an Organized Health Care Education/Training Program
PROC: B24BZZ4 Ultrasonography of Heart with Aorta, Transesophageal (ICD-10-PCS; CPT 93312; principal; 2022-09-01 11:50)
DX: E87.1 Hypo-osmolality and hyponatremia (principal); I48.21 Permanent atrial fibrillation; E86.1 Hypovolemia; W18.30XA Fall on same level, unspecified, initial encounter; E11.65 Type 2 diabetes mellitus with hyperglycemia; E11.22 Type 2 diabetes mellitus with diabetic chronic kidney disease; I12.9 Hypertensive chronic kidney disease with stage 1 through stage 4 chronic kidney disease, or unspecified chronic kidney disease; N18.32 Chronic kidney disease, stage 3b; G47.33 Obstructive sleep apnea (adult) (pediatric); E11.42 Type 2 diabetes mellitus with diabetic polyneuropathy; I25.10 Atherosclerotic heart disease of native coronary artery without angina pectoris; E78.2 Mixed hyperlipidemia; Z20.822 Contact with and (suspected) exposure to COVID-19; Z79.01 Long term (current) use of anticoagulants; Z85.828 Personal history of other malignant neoplasm of skin; Z88.2 Allergy status to sulfonamides; Z95.3 Presence of xenogenic heart valve; Z98.84 Bariatric surgery status
CPT/HCPCS: 36415; 36556; 70450; 71045; 71046; 72125; 76705; 80048; 80053; 80069; 80202; 81001; 82550; 82728; 82948; 83036; 83605; 83615; 83690; 83735; 84145; 84484; 85025; 85027; 85610; 85730; 86140; 87040; 87077; 87186; 87502; 87634; 87651; 87899; 93005; 93312; 93320; 93325; 96361; 96365; 96368; 99285; A9270; C1751; C8929; G0378; J0131; J0690; J0696; J1815; J2250; J3010; J3370; J7030; J7040; J7120; Q9957; U0003; U0005

== ENCOUNTER 2022-09-14 11:23 | Outpatient (RCR) | payer MEDICARE, SELFPAY ==
[2022-09-07 12:26] LABS: Basophils Absolute Auto 0.1 K/mm3 (0.0-0.1); Basophils Percent Auto 0.8 % (0.2-1.2); Eosinophils Absolute Auto 0.2 K/mm3 (0-0.3); Eosinophils Percent Auto 1.9 % (0-4.4); Hematocrit 39.5 % (42.0-52.0); Hemoglobin 12.9 g/dL (14.0-18.0); Immature Granulocyte Absolute 0.06 K/mm3 (0.00-0.031); Immature Granulocyte Percent A 0.6 % (0-0.5); Lymphocytes Absolute Auto 0.94 K/mm3 (0.9-3.2); Mean Corpuscular HGB Conc 32.7 g/dl (32-36); Mean Corpuscular Hemoglobin 31.7 pg (26-34); Mean Corpuscular Volume 97.1 fl (80-100); Mean Platelet Volume 10.9 fl (7.4-10.4); Monocytes Absolute Auto 0.7 K/mm3 (0.1-0.6); Monocytes Percent Auto 6.8 % (2.6-8.5); Neutrophils Absolute Auto 8.4 K/mm3 (1.3-6.7); Neutrophils Percent Auto 80.9 % (45.5-73.1); Platelet Count Result 323 k/mm3 (150-375); Red Blood Count 4.07 M/mm3 (4.6-6.20); Red Cell Distribution Width 13.4 % (11.5-14.5); White Blood Count 10.4 K/mm3 (4.5-10.0)
[2022-09-07 12:48] LABS: Alanine Aminotransferase 13 U/L (6-50); Albumin Level 3.2 g/dL (3.5-5.1); Alkaline Phosphatase 129 U/L (38-126); Anion Gap 7 mmol/L (8-16); Aspartate Amino Transferase 41 U/L (17-59); Bilirubin,Total 0.4 mg/dL (0.2-1.3); Blood Urea Nitrogen 24 mg/dL (9-20); Calcium 8.2 mg/dL (8.4-10.2); Carbon Dioxide 25 mmol/L (22-30); Chloride 97 mmol/L (98-107); Estimated Glomerular Filt Rate 35; Glucose 156 mg/dL (65-110); Sodium 129 mmol/L (137-145)
[2022-09-14 12:13] LABS: Basophils Absolute Auto 0.1 K/mm3 (0.0-0.1); Basophils Percent Auto 1.1 % (0.2-1.2); Eosinophils Absolute Auto 0.1 K/mm3 (0-0.3); Eosinophils Percent Auto 1.3 % (0-4.4); Immature Granulocyte Absolute 0.04 K/mm3 (0.00-0.031); Immature Granulocyte Percent A 0.4 % (0-0.5); Lymphocytes Absolute Auto 0.92 K/mm3 (0.9-3.2); Lymphocytes Percent Auto 9.2 % (18.3-44.2); Mean Corpuscular HGB Conc 32.5 g/dl (32-36); Mean Corpuscular Hemoglobin 31.9 pg (26-34); Mean Corpuscular Volume 98.3 fl (80-100); Mean Platelet Volume 11.1 fl (7.4-10.4); Monocytes Absolute Auto 0.7 K/mm3 (0.1-0.6); Monocytes Percent Auto 7.4 % (2.6-8.5); Neutrophils Absolute Auto 8.1 K/mm3 (1.3-6.7); Neutrophils Percent Auto 80.6 % (45.5-73.1); Platelet Count Result 314 k/mm3 (150-375); Red Blood Count 4.07 M/mm3 (4.6-6.20); Red Cell Distribution Width 13.6 % (11.5-14.5)
[2022-09-14 12:39] LABS: Alanine Aminotransferase 15 U/L (6-50); Albumin Level 3.3 g/dL (3.5-5.1); Alkaline Phosphatase 115 U/L (38-126); Anion Gap 8 mmol/L (8-16); Aspartate Amino Transferase 49 U/L (17-59); Bilirubin,Total 0.3 mg/dL (0.2-1.3); Blood Urea Nitrogen 25 mg/dL (9-20); CRP 1.7 mg/dL (<1.0); Calcium 8.3 mg/dL (8.4-10.2); Carbon Dioxide 25 mmol/L (22-30); Chloride 98 mmol/L (98-107); Estimated Glomerular Filt Rate 40; Glucose 166 mg/dL (65-110); Potassium 4.1 mmol/L (3.4-5.0); Sodium 131 mmol/L (137-145)
== END 2022-12-06 23:59 | disposition home or self-care (01) ==
LOC: HOME HLTH 11:23
PROVIDERS: PCP Family Medicine; Visit Provider Internal Medicine
DX: Z45.2 Encounter for adjustment and management of vascular access device (principal)
CPT/HCPCS: 36415; 80053; 85025; 86140

== ENCOUNTER 2022-11-13 01:12 | Day surgery (SDC) | payer MEDICARE, SELFPAY ==
[2022-11-03 14:43] VITALS: BMI 30.9
[2022-11-13 06:36] VITALS: BP 143/92; PULSE 81; RESP 18; TEMP 36.5; O2SAT 98
[2022-11-13] MEDS: LACTATED RINGERS 1,000 ML 150 ML IV CONT (06:48)
[2022-11-13] MEDS: GENTAMICIN 80MG/SOD CHL 50 ML 80 MG/50 ML BAG 100 MG IVPB (06:49)
[2022-11-13 06:58] LABS: Glucose Point of Care 109 mg/dl (65-105)
--- NOTE | 2022-11-13 06:59 | WPDANESEPPF ---
Anes - Initial Pre Proc Eval Procedure: Operation Date: 11/13/22 07:30 Proposed Procedures p Colonoscopy - Oleg Crenshaw MD Date/Time: 11/13/22 06:59 Surgeon: Oleg Crenshaw MD Pre Op Diagnosis: Sepsis Patient Data Age: 67 Gender: M Height: 1.87 m Weight: 104.7 kg Last Vital Signs Temp 36.5 C 11/13/22 06:36 Pulse 81 11/13/22 06:36 Resp 18 11/13/22 06:36 BP 143/92 H 11/13/22 06:36 Pulse Ox 98 11/13/22 06:36 O2 Del Method Room Air 11/13/22 06:36 Allergies Allergy/AdvReac Type Severity Reaction Status Date / Time Sulfa (Sulfonamide Allergy Unknown Rash Verified 11/13/22 06:32 Antibiotics) Home Medications Medication Instructions Recorded Confirmed Type metoprolol succinate 50 mg 50 mg PO BID #60 tabs 01/03/22 11/03/22 Rx tablet,extended release 24 hr empagliflozin 10 mg tablet 10 mg PO DAILY #30 tabs 08/04/22 11/03/22 Rx (Jardiance) apixaban 5 mg tablet (Eliquis) 2.5 mg PO BID 08/30/22 11/03/22 History aspirin 81 mg tablet 81 mg PO DAILY 08/30/22 11/03/22 History ezetimibe 10 mg tablet 10 mg PO DAILY 08/30/22 11/03/22 History magnesium 200 mg tablet 400 mg PO DAILY 08/30/22 11/03/22 History multivitamin (Daily Multi-Vitamin 1 tablet PO DAILY 08/30/22 11/03/22 History tablet) atorvastatin 80 mg tablet 80 mg PO DAILY 09/15/22 11/03/22 History blood-glucose sensor (FreeStyle #13 ea 10/16/22 10/16/22 Rx Harshil 3 Sensor device) flash glucose scanning reader #1 ea 10/16/22 10/16/22 Rx (FreeStyle Harshil 2 Thompson) glimepiride 4 mg tablet 2 mg PO DAILY #90 tabs 10/20/22 11/03/22 Rx amlodipine 5 mg tablet 5 mg PO DAILY 11/03/22 11/03/22 History ascorbic acid (vitamin C) 1,000 mg 1 g PO DAILY 11/03/22 11/03/22 History tablet Laboratory Tests 11/13/22 06:46 POC Capillary Glucose 109 mg/dl H mg/dl (65-105) Patient hx anesthesia problems: none Family hx anesthesia problems: none Results Review: All pre-operative results and documents have been reviewed as part of the pre-operative evaluation. [facility] Past Medical History Medical History Actinic keratosis Aortic stenosis Status post TAVR repeat echo 05/01/2022: Moderate concentric left ventricular hypertrophy, normal global left ventricular systolic function with EF of 60%, basal inferior segment hypokinesis, mitral valve leaflets mildly thickened, mild mitral valve regurgitation, aortic valve not well-visualized peak gradient 23 mean gradient 12 valve area 1.07, no aortic regurgitation, normal appearing aortic valve prosthesis gradients normal for valve type and size, mild pulmonary hypertension with RVSP of 35, mild tricuspid regurgitation, atrial fibrillation, technically difficult study with limited views Atrial fibrillation (~2009) Chronic Basal cell carcinoma (BCC) of face CKD (chronic kidney disease) Coronary artery disease Left heart catheterization mild nonobstructive coronary artery disease September 2021 Diabetic peripheral neuropathy Diverticulosis Essential hypertension rn long term care (current) use of anticoagulants Mixed hyperlipidemia Nonrheumatic aortic (valve) insufficiency Nonrheumatic aortic valve stenosis Normal colonoscopy (~2009) Demonstrating diverticulosis and internal hemorrhoids Obstructive sleep apnea Did not tolerate CPAP Sepsis Type 2 diabetes mellitus Surgical History Surgical History H/O inguinal hernia repair (~1979) History of ankle surgery (~1989) History of lumbar surgery (~1985) History of sleeve gastrectomy (04/2016) Status post transcatheter aortic valve replacement (TAVR) using bioprosthesis (~10/27/21) 29 mm [place] Maged 3 ultra Family History Family History Sibling Family history of cardiovascular disease Diabetes mellitus Family history of malignant neoplasm of breast in first degree
--- NOTE | 2022-11-13 07:20 | PM.HPGS ---
History of Present Illness History of Present Illness Consent: Risks, benefits, and alternatives have been discussed and questions answered. Patient agrees to proceed with procedure. Chief complaint: Strep bovis sepsis Narrative: Wesley Sanchez is a 67 year old male Referred for colonoscopy. Patient recently hospitalized was found to have a strep bovis septicemia. Patient referred for colonoscopy as this is felt to be sometimes associated with colon pathology. Patient has a prior history of colon polyps in 2020. Family history significant For his brother having had colon cancer. Patient has a past medical history of gastric sleeve in 2015. He is treated for atrial fibrillation and chronic kidney disease with Eliquis. He does have a history of a TAVR 8 atrial valve replacement. Currently patient reports his weight appetite and bowel movements are normal. He denies abdominal pain. He has had no bleeding. Review of Systems Review of Systems: Review of systems noncontributory. [facility] Past Medical History Medical History Actinic keratosis Aortic stenosis Status post TAVR repeat echo 05/01/2022: Moderate concentric left ventricular hypertrophy, normal global left ventricular systolic function with EF of 60%, basal inferior segment hypokinesis, mitral valve leaflets mildly thickened, mild mitral valve regurgitation, aortic valve not well-visualized peak gradient 23 mean gradient 12 valve area 1.07, no aortic regurgitation, normal appearing aortic valve prosthesis gradients normal for valve type and size, mild pulmonary hypertension with RVSP of 35, mild tricuspid regurgitation, atrial fibrillation, technically difficult study with limited views Atrial fibrillation (~2009) Chronic Basal cell carcinoma (BCC) of face CKD (chronic kidney disease) Coronary artery disease Left heart catheterization mild nonobstructive coronary artery disease September 2021 Diabetic peripheral neuropathy Diverticulosis Essential hypertension group home (current) use of anticoagulants Mixed hyperlipidemia Nonrheumatic aortic (valve) insufficiency Nonrheumatic aortic valve stenosis Normal colonoscopy (~2009) Demonstrating diverticulosis and internal hemorrhoids Obstructive sleep apnea Did not tolerate CPAP Sepsis Type 2 diabetes mellitus Surgical History Surgical History H/O inguinal hernia repair (~1979) History of ankle surgery (~1989) History of lumbar surgery (~1985) History of sleeve gastrectomy (04/2016) Status post transcatheter aortic valve replacement (TAVR) using bioprosthesis (~10/27/21) 29 mm [place] Maged 3 ultra Family History Family History Sibling Family history of cardiovascular disease Diabetes mellitus Family history of malignant neoplasm of breast in first degree relative Family history of coronary artery disease Carcinoma of colon Hypertension Cerebrovascular accident Father Family history of malignant neoplasm Grandparent Family history of kidney disease Other Family history of congestive heart failure Family history of obesity Social History Social History Social History: Code status: Full code Surrogate decision maker: Rocco () Smoking packs per day: 1.5 Smoking cigarettes per day: 30.0 Years smoked: 28 Smoking pack-years: 42.00 Smoking status: Former smoker Tobacco type: cigarettes Smoking end date: 10/19/98 Alcohol intake: current Alcohol use details: 1 alcoholic beverage every 2-4 weeks. Substance use: never Substance use type: does not use Lack of Transportation: No Lack of Food: Never True Current Housing: I Have Housing Concerned About Future Housing: No Difficulty Paying Gas/Electric Bills: No Difficulty Paying for Meds: No Cur
[2022-11-13] MEDS: AMPICILLIN 2 GM/NS 100 ML 2 GM/100 ML BAG IVPB (07:28)
[2022-11-13 07:54] VITALS: BP 92/56; PULSE 65; RESP 19; O2SAT 92
[2022-11-13 08:04] VITALS: BP 106/73; PULSE 65; RESP 21; O2SAT 98
[2022-11-13 08:14] VITALS: BP 139/72; PULSE 63; RESP 21; O2SAT 98
== END 2022-11-13 08:28 | disposition home or self-care (01) ==
PROVIDERS: PCP Family Medicine; Visit Provider Internal Medicine Gastroenterology
PROC: 0DJD8ZZ Inspection of Lower Intestinal Tract, Via Natural or Artificial Opening Endoscopic (ICD-10-PCS; CPT 45378; principal; 2022-11-13 07:30)
DX: Z09 Encounter for follow-up examination after completed treatment for conditions other than malignant neoplasm (principal); D12.0 Benign neoplasm of cecum; D12.2 Benign neoplasm of ascending colon; D12.3 Benign neoplasm of transverse colon; D12.8 Benign neoplasm of rectum; K57.30 Diverticulosis of large intestine without perforation or abscess without bleeding; K64.8 Other hemorrhoids; Z86.19 Personal history of other infectious and parasitic diseases; Z80.0 Family history of malignant neoplasm of digestive organs; I25.10 Atherosclerotic heart disease of native coronary artery without angina pectoris; I12.9 Hypertensive chronic kidney disease with stage 1 through stage 4 chronic kidney disease, or unspecified chronic kidney disease; E11.22 Type 2 diabetes mellitus with diabetic chronic kidney disease; N18.9 Chronic kidney disease, unspecified; E11.42 Type 2 diabetes mellitus with diabetic polyneuropathy; E78.2 Mixed hyperlipidemia; G47.33 Obstructive sleep apnea (adult) (pediatric); I48.20 Chronic atrial fibrillation, unspecified; Z79.84 Long term (current) use of oral hypoglycemic drugs; Z79.01 Long term (current) use of anticoagulants; Z79.82 Long term (current) use of aspirin; Z95.2 Presence of prosthetic heart valve; Z98.84 Bariatric surgery status; Z87.891 Personal history of nicotine dependence; E66.9 Obesity, unspecified; Z68.30 Body mass index [BMI] 30.0-30.9, adult
CPT/HCPCS: 45385; 82948; 88305; J0290; J1580; J2704; J7120

== ENCOUNTER 2023-01-27 04:37 | Emergency (ER) | payer MEDICARE, SELFPAY ==
[2023-01-27 04:45] VITALS: BP 166/101; PULSE 62; RESP 16; TEMP 36.7; O2SAT 100
--- NOTE | 2023-01-27 08:18 | ED.EYEPROB ---
HPI - Eye Problem General Chief complaint: Eye Problems Stated complaint: right eye pain/swelling Time Seen by Provider: 01/27/23 07:21 History of Present Illness HPI Narrative: Patient is a 67-year-old male who presents ER with right eye irritation. He noticed it last night while watching TV. He feels like there is something on his right eye in the lower lid. No change in vision. No flashes or floaters. Patient does not think he scratched himself. Related Data Home Medications Medication Instructions Recorded Confirmed apixaban 5 mg tablet (Eliquis) 2.5 mg PO BID 08/30/22 11/03/22 aspirin 81 mg tablet 81 mg PO DAILY 08/30/22 11/03/22 ezetimibe 10 mg tablet 10 mg PO DAILY 08/30/22 11/03/22 magnesium 200 mg tablet 400 mg PO DAILY 08/30/22 11/03/22 multivitamin (Daily Multi-Vitamin 1 tablet PO DAILY 08/30/22 11/03/22 tablet) atorvastatin 80 mg tablet 80 mg PO DAILY 09/15/22 11/03/22 amlodipine 5 mg tablet 5 mg PO DAILY 11/03/22 11/03/22 ascorbic acid (vitamin C) 1,000 mg 1 g PO DAILY 11/03/22 11/03/22 tablet Allergies Allergy/AdvReac Type Severity Reaction Status Date / Time Sulfa (Sulfonamide Allergy Unknown Rash Verified 01/27/23 04:39 Antibiotics) Review of Systems Eyes: Eyes: Denies change in vision and Denies photophobia Comments: Right eye irritation ENT: Denies nasal congestion and Denies sore throat PMFSH Past Medical History Medical History Actinic keratosis Aortic stenosis Status post TAVR repeat echo 05/01/2022: Moderate concentric left ventricular hypertrophy, normal global left ventricular systolic function with EF of 60%, basal inferior segment hypokinesis, mitral valve leaflets mildly thickened, mild mitral valve regurgitation, aortic valve not well-visualized peak gradient 23 mean gradient 12 valve area 1.07, no aortic regurgitation, normal appearing aortic valve prosthesis gradients normal for valve type and size, mild pulmonary hypertension with RVSP of 35, mild tricuspid regurgitation, atrial fibrillation, technically difficult study with limited views Atrial fibrillation (~2009) Chronic Basal cell carcinoma (BCC) of face CKD (chronic kidney disease) Coronary artery disease Left heart catheterization mild nonobstructive coronary artery disease September 2021 Diabetic peripheral neuropathy Diverticulosis Essential hypertension [facility] (current) use of anticoagulants Mixed hyperlipidemia Nonrheumatic aortic (valve) insufficiency Nonrheumatic aortic valve stenosis Normal colonoscopy (~2009) Demonstrating diverticulosis and internal hemorrhoids Obstructive sleep apnea Did not tolerate CPAP Sepsis Type 2 diabetes mellitus Surgical History Surgical History H/O inguinal hernia repair (~1979) History of ankle surgery (~1989) History of lumbar surgery (~1985) History of sleeve gastrectomy (04/2016) Status post transcatheter aortic valve replacement (TAVR) using bioprosthesis (~10/27/21) 29 mm [place] Maged 3 ultra Family History Family History Sibling Family history of cardiovascular disease Diabetes mellitus Family history of malignant neoplasm of breast in first degree relative Family history of coronary artery disease Carcinoma of colon Hypertension Cerebrovascular accident Father Family history of malignant neoplasm Grandparent Family history of kidney disease Other Family history of congestive heart failure Family history of obesity Social History Social History Social History: Code status: Full code Surrogate decision maker: Rocco () Smoking packs per day: 1.5 Smoking cigarettes per day: 30.0 Years smoked: 28 Smoking pack-years: 42.00 Smoking status: Former smoker Tobacco type: cigarettes Smoking end date:
[2023-01-27 08:38] VITALS: BP 148/86; PULSE 86; RESP 16; O2SAT 98
== END 2023-01-27 08:39 | disposition home or self-care (01) ==
PROVIDERS: Emergency Provider Emergency Medicine; PCP Family Medicine
DX: S05.01XA Injury of conjunctiva and corneal abrasion without foreign body, right eye, initial encounter (principal); I35.0 Nonrheumatic aortic (valve) stenosis; I48.20 Chronic atrial fibrillation, unspecified; E11.22 Type 2 diabetes mellitus with diabetic chronic kidney disease; I12.9 Hypertensive chronic kidney disease with stage 1 through stage 4 chronic kidney disease, or unspecified chronic kidney disease; N18.9 Chronic kidney disease, unspecified; I25.10 Atherosclerotic heart disease of native coronary artery without angina pectoris; E11.42 Type 2 diabetes mellitus with diabetic polyneuropathy; E78.2 Mixed hyperlipidemia; G47.33 Obstructive sleep apnea (adult) (pediatric); Z87.891 Personal history of nicotine dependence; Z85.828 Personal history of other malignant neoplasm of skin; Z98.84 Bariatric surgery status; Z95.2 Presence of prosthetic heart valve; Z79.82 Long term (current) use of aspirin; Z79.01 Long term (current) use of anticoagulants; Z79.84 Long term (current) use of oral hypoglycemic drugs; X58.XXXA Exposure to other specified factors, initial encounter
CPT/HCPCS: 99283; A9270

== ENCOUNTER 2023-07-30 20:43 | Emergency (ER) | payer MEDICARE, SELFPAY ==
[2023-07-30 20:46] VITALS: BP 170/98; PULSE 63; RESP 16; TEMP 36.8; O2SAT 98
--- NOTE | 2023-07-31 00:21 | ED.EXTPRO ---
HPI - Extremity Problem General Chief complaint: Extremity Problem,Nontraumatic Stated complaint: left hand redness/swelling Time Seen by Provider: 07/30/23 22:25 Source: patient and old records reviewed Mode of arrival: ambulatory Limitations: no limitations History of Present Illness HPI Narrative: Patient is a 68-year-old male, with PMH of DM, CKD, CAD, s/p TAVR, AFIB, who presents to the ED with complaint of cellulitis to his left hand and third digit. Patient was recently vacationing in [place]. He sustained an abrasion to the medial surface of his left third digit last Sunday. He states he rubbed this until it became raw. Over the last few days, patient has developed increased pain, swelling, redness to left 3rd digit and spreading into his hand and distal forearm. He was evaluated at a hospital in [place] yesterday, 07/29, and it was recommended he be admitted for IV antibiotics and evaluation by orthopedic surgery. Patient states it took 8+ hours for him to receive a admission bed so he decided to leave AGAINST MEDICAL ADVICE and had his son bring him back home. Patient did receive dose of IV clindamycin there. He is not currently on any antibiotics. He denies any fever. Per medical records, patient had an elevated WBC to nearly 15, elevated BG, and CRP > 5. Related Data Home Medications Medication Instructions Recorded Confirmed aspirin 81 mg tablet 81 mg PO DAILY 08/30/22 11/03/22 ezetimibe 10 mg tablet 10 mg PO DAILY 08/30/22 11/03/22 magnesium 200 mg tablet 400 mg PO DAILY 08/30/22 11/03/22 multivitamin (Daily Multi-Vitamin 1 tablet PO DAILY 08/30/22 11/03/22 tablet) atorvastatin 80 mg tablet 80 mg PO DAILY 09/15/22 11/03/22 ascorbic acid (vitamin C) 1,000 mg 1 g PO DAILY 11/03/22 11/03/22 tablet Allergies Allergy/AdvReac Type Severity Reaction Status Date / Time Sulfa (Sulfonamide Allergy Unknown Rash Verified 07/30/23 20:43 Antibiotics) Review of Systems Review of Systems: CONSTITUTIONAL: Denies fever, chills, or sweats. SKIN: See HPI. MUSCULOSKELETAL: See HPI. NEUROLOGIC: Denies headache, numbness, or weakness. All systems reviewed & are unremarkable except as noted in HPI and below PMFSH Past Medical History Medical History Actinic keratosis Aortic stenosis Status post TAVR repeat echo 05/01/2022: Moderate concentric left ventricular hypertrophy, normal global left ventricular systolic function with EF of 60%, basal inferior segment hypokinesis, mitral valve leaflets mildly thickened, mild mitral valve regurgitation, aortic valve not well-visualized peak gradient 23 mean gradient 12 valve area 1.07, no aortic regurgitation, normal appearing aortic valve prosthesis gradients normal for valve type and size, mild pulmonary hypertension with RVSP of 35, mild tricuspid regurgitation, atrial fibrillation, technically difficult study with limited views Atrial fibrillation (~2009) Chronic Basal cell carcinoma (BCC) of face CKD (chronic kidney disease) Coronary artery disease Left heart catheterization mild nonobstructive coronary artery disease September 2021 Diabetic peripheral neuropathy Diverticulosis 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 Mixed hyperlipidemia Nonrheumatic aortic (valve) insufficiency Nonrheumatic aortic valve stenosis Normal colonoscopy (~2009) Demonstrating diverticulosis and internal hemorrhoids Obstructive sleep apnea Did not tolerate CPAP Sepsis Type 2 diabetes mellitus Surgical History Surgical History H/O inguinal hernia repair (~1979) History of ankle surgery (~1989) History of lumbar surgery (~1985) History of sleeve gastrectomy (04/2016) Status post transcatheter aortic valve replacement (TAVR) using bioprosthesis (~10/27/21) 29 mm [place] Maged 3 ultra Family History Family History (Reviewed 07/31/23 @
[2023-07-31 00:24] VITALS: BP 167/97; PULSE 84; RESP 16; O2SAT 98
== END 2023-07-31 00:03 | disposition left against medical advice (07) ==
PROVIDERS: Emergency Provider Physician Assistant; PCP Family Medicine
DX: L03.114 Cellulitis of left upper limb (principal); E11.65 Type 2 diabetes mellitus with hyperglycemia; I35.0 Nonrheumatic aortic (valve) stenosis; I48.20 Chronic atrial fibrillation, unspecified; I12.9 Hypertensive chronic kidney disease with stage 1 through stage 4 chronic kidney disease, or unspecified chronic kidney disease; E11.22 Type 2 diabetes mellitus with diabetic chronic kidney disease; N18.9 Chronic kidney disease, unspecified; E11.42 Type 2 diabetes mellitus with diabetic polyneuropathy; E78.2 Mixed hyperlipidemia; G47.33 Obstructive sleep apnea (adult) (pediatric); Z95.2 Presence of prosthetic heart valve; Z85.828 Personal history of other malignant neoplasm of skin; Z87.891 Personal history of nicotine dependence; Z98.84 Bariatric surgery status; Z79.01 Long term (current) use of anticoagulants; Z79.82 Long term (current) use of aspirin; Z79.84 Long term (current) use of oral hypoglycemic drugs
CPT/HCPCS: 99281

== ENCOUNTER 2024-05-08 16:37 | Outpatient (CLI) | payer MEDICARE, SELFPAY ==
--- NOTE | ~2024-05-08 | US_ITS ---
EXAMINATION: US renal BI DATE: 05/08/2024 17:16 INDICATION: Stage V chronic kidney disease TECHNIQUE: Multiple ultrasound grayscale images of the kidneys were obtained. COMPARISON: None. FINDINGS: The right kidney measures 10.5 x 6.0 x 5.8 cm. The left kidney measures 1.2 x 7.0 x 6.6 cm. There is bilateral mild diffuse renal cortical atrophy with normal echogenicity. 2.2 cm anechoic right renal c yst. There is no hydronephrosis in either kidney. No stones identified. The bladder is normal. IMPRESSION: 1. Mild bilateral renal cortical atrophy and 2.2 cm right renal cyst. No hydronephrosis. Reviewed, dictated and finalized at location A. IMPRESSION: 1. Mild bilateral renal cortical atrophy and 2.2 cm right renal cyst. No hydro nephrosis.
== END 2024-05-08 16:38 | disposition home or self-care (01) ==
LOC: ANHIMG 16:37
PROVIDERS: PCP Family Medicine; Visit Provider Internal Medicine Nephrology
DX: N18.5 Chronic kidney disease, stage 5 (principal)
CPT/HCPCS: 76775

== ENCOUNTER 2024-06-13 10:35 | Inpatient (IN) | payer MEDICARE, SELFPAY ==
[2024-06-13] VITALS (27 sets, daily range): BP systolic 169–218; BP diastolic 66–105; PULSE 36–65; RESP 12–18; TEMP 36.2–36.5; O2SAT 96–100; BMI 34.6
--- NOTE | 2024-06-13 | ECHO_ITS ---
Patient Info Name: Wesley Haro Self Age: 69 years : 1955 Gender: Male Ht: 74 in Wt: 265 lbs BSA: 2.54 m2 Heart Rhythm: Sinus Rhythm Technical Quality: Poor Exam Date: 06/13/2024 3:55 PM Exam Location: Echo Lab Patient Status: Inpatient Admit Date: 06/13/2024 Staff Ordering Physician: Sharri Myers APRN Export Freight Clerk: Marion Yarbrough RDCS Attending Provider: Gurmeet Mittal MD Referring Physician: Lucia FONSECA; Exam Type: CA echo dop color flow w con Study Info Indications - fatigue, elevated bnp Complete two-dimensional, color flow and Doppler transthoracic echocardiogram is performed with contrast to opacify the left ventricle and to improve the deliniation of the left ventricle endocardial borders. Reason for Poor Study: poor echocardiographic windows Summary 1. Technically difficult study with limited views. 2. Left ventricular chamber dimension is normal. 3. Left ventricular systolic function is normal, estimated at 65-70%. 4. There is mildly increased left ventricular wall thickness. 5. Left atrial chamber dimension is moderately enlarged. 6. Right atrial chamber dimension is moderately enlarged. 7. There is mild mitral valve regurgitation. 8. There is mild tricuspid valve regurgitation. Left Ventricle Left ventricular chamber dimension is normal. Left ventricular systolic function is normal, estimated at 65-70%. There is mildly increased left ventricular wall thickness. Right Ventricle Right ventricular chamber dimension is not well visualized. Left Atria Left atrial chamber dimension is moderately enlarged. Right Atria Right atrial chamber dimension is moderately enlarged. Atrial Septum Intact interatrial septum visualized by color flow imaging. Aortic Valve The aortic valve is not well visualized. There is no aortic valve regurgitation. Pulmonic Valve The pulmonic valve is not well visualized. Mitral Valve There is mild mitral valve regurgitation. Tricuspid Valve There is mild tricuspid valve regurgitation. Pericardium/Pleural There is no pericardial effusion. Inferior Vena Cava Inferior vena cava is not well visualized. Aorta The aortic root size at the sinus of Valsalva is normal. Left Ventricular Outflow Tract Name Value Normal LVOT Doppler LVOT Peak Gradient 2 mmHg LVOT Mean Gradient 2 mmHg LVOT VTI 21.59 cm LVOT VTI/AV VTI Ratio 0.38 Pulmonic Valve Name Value Normal PV Doppler PV Peak Gradient 3 mmHg Mitral Valve Name Value Normal MV Doppler MV Decel [place] 703.49 cm/s2 MV PHT 0 s MV Area (PHT) 3.73 cm2 4.00-5.00 MV Regurgitation Doppler
--- NOTE | ~2024-06-13 | XR_ITS ---
EXAMINATION: XR chest port-a-cath/central Exam Date/Time: 06/16/2024 17:30 CDT HISTORY: POST-OP, INSERTION TUNNELED DIALYSIS Comparison: 06/13/2024. RESULT: Lines, tubes, and devices: New right IJ dialysis catheter, tip projecting at the cavoatrial junction . Cardiac valve replacement. Lungs and pleura: Rightward rotation. Mild diffuse reticular opacities. No pneumothorax. Cardiomediastinal silhouette: Stable. Other: No acute osseous or upper abdominal finding. IMPRESSION: Right IJ dialysis catheter, terminating at the cavoatrial junction. Mild interstitial edema. Reviewed, dictated and finalized at location K. IMPRESSION: Right IJ dialysis catheter, terminating at the cavoatrial junction. Mild inters titial edema.
--- NOTE | ~2024-06-13 | XR_ITS ---
EXAMINATION: XR chest 2V DATE: 06/13/2024 11:46 INDICATION: Weakness. Bradycardia. TECHNIQUE: frontal and lateral views of the chest were obtained. COMPARISON: Chest radiograph dated 09/04/2022 FINDINGS: There are very small bilateral pleural effusions with blunting at the posterior sulci. No other airsp lana opacities, pulmonary edema or pneumothorax. The cardiomediastinal silhouette is within normal desouza its conifer AP technique and slight rightward rotation of the patient. Aortic valve repair. Mild thor acic spondylosis. IMPRESSION: 1. Very small bilateral pleural effusions. Reviewed, dictated and finalized at location A.
--- NOTE | ~2024-06-13 | CT_ITS ---
Non-contrast Head CT History: Altered mental status COMPARISON: 08/29/2022 Technique: Axial non-contrast imaging of the brain was performed. Dose reduction technique was used on this scan by utilizing automated exposure control and iterative reconstruction technique. The dose -length product (DLP) was 605.33 mGy-cm. Findings: There is no evidence of intracranial hemorrhage, mass lesion, or acute infarct. Brain par enchyma appears normal. The ventricles and subarachnoid spaces are normal in size. The calvarium ap pears normal. The visualized paranasal sinuses and mastoid air cells are clear. Impression: No significant abnormality seen. Reviewed, dictated and finalized at location . Impression: No significant abnormality seen.
--- NOTE | ~2024-06-13 | XR_ITS ---
EXAMINATION: XR fl guide central line place DATE: 06/16/2024 16:20 CDT INDICATION: INSERTION TUNNELED DIALYSIS . TECHNIQUE: 1 fluoroscopic image of the chest were obtained during tunneled dialysis catheter insertio n, performed by Navjot Kelsey M.D.. I was not present during the procedure. Fluoroscopy exposure time was 1 minute 5.5 seconds. Air Kerma 15.683 mGy. DAP 3.1089 mGym2. COMPARISON: None FINDINGS/IMPRESSION: Fluoroscopic documentation of tunnel dialysis catheter insertion. Please refer to the operative note for complete procedural details . Reviewed, dictated and finalized at location K.
--- NOTE | 2024-06-13 11:04 | ECG_ITS ---
Test Date: 2024-06-13 11:07:27 Measurements Intervals [place] Rate: 42 P: 0 HI: 0 QRS: 5 QRSD: 76 T: 33 QT: 508 QTc: 428 Interpretive Statements ATRIAL FLUTTER/TACHYCARDIA WITH SLOW VENTRICULAR RESPONSE LOW QRS VOLTAGE IN PRECORDIAL LEADS CONSIDER ANTERIOR INFARCT, AGE INDETERMINATE CONSIDER INFERIOR INFARCT, AGE INDETERMINATE BORDERLINE ST-T WAVE ABNORMALITY- LAT/HIGH LAT LEADS BASELINE ARTIFACT- I, II, III, AVR, AVL, AVF ABNORMAL ECG No previous ECG available for comparison Electronically Signed On 06-13-2024 11:38:48 CDT by Red De La Rosa D.O.
[2024-06-13 11:19] LABS: Basophils Absolute Auto 0.1 K/mm3 (0.0-0.1); Basophils Percent Auto 0.6 % (0.2-1.2); Eosinophils Absolute Auto 0.3 K/mm3 (0-0.3); Eosinophils Percent Auto 3.3 % (0-4.4); Hematocrit 38.3 % (42.0-52.0); Hemoglobin 12.6 g/dL (14.0-18.0); Immature Granulocyte Absolute 0.03 K/mm3 (0.00-0.031); Immature Granulocyte Percent A 0.3 % (0-0.5); Lymphocytes Absolute Auto 0.89 K/mm3 (0.9-3.2); Lymphocytes Percent Auto 9.2 % (18.3-44.2); Mean Corpuscular HGB Conc 32.9 g/dl (32-36); Mean Corpuscular Hemoglobin 32.1 pg (26-34); Mean Corpuscular Volume 97.7 fl (80-100); Mean Platelet Volume 10.4 fl (7.4-10.4); Monocytes Absolute Auto 0.7 K/mm3 (0.1-0.6); Monocytes Percent Auto 7.5 % (2.6-8.5); Neutrophils Absolute Auto 7.6 K/mm3 (1.3-6.7); Neutrophils Percent Auto 79.1 % (45.5-73.1); Platelet Count Result 274 k/mm3 (150-375); Red Blood Count 3.92 M/mm3 (4.6-6.20); Red Cell Distribution Width 13.5 % (11.5-14.5); White Blood Count 9.7 K/mm3 (4.5-10.0)
[2024-06-13 11:28] LABS: INR 1.7; Prothrombin Time 20.3 Seconds (11.1-14.7)
[2024-06-13 11:30] LABS: Partial Thromboplastin Time 36.4 Seconds (22.3-36.8)
[2024-06-13 11:31] LABS: Alanine Aminotransferase 35 U/L (6-50); Albumin Level 3.6 g/dL (3.5-5.1); Alkaline Phosphatase 117 U/L (38-126); Anion Gap 11 mmol/L (4-12); Aspartate Amino Transferase 44 U/L (17-59); Bilirubin,Total 0.6 mg/dL (0.2-1.3); Blood Urea Nitrogen 68 mg/dL (9-20); Carbon Dioxide 22 mmol/L (22-30); Chloride 102 mmol/L (98-107); Estimated CRCL calculation 12 ml/min; Estimated Glomerular Filt Rate 8; Glucose 183 mg/dL (65-110); Potassium 4.6 mmol/L (3.4-5.0); Sodium 135 mmol/L (137-145)
[2024-06-13 11:48] LABS: NT Pro B Type Natriuretic Pept 21600 pg/mL (19.9-100); Troponin I 0.089 ng/mL (0.000-0.034)
--- NOTE | 2024-06-13 11:54 | PC.NURSE ---
Pt denies any pain including CP or N/V, SOB. Reports only weakness. x 1 week. Reports took all his meds as prescribed this morning including the metoprolol.
[2024-06-13] MEDS: hydrALAZINE HCL 20 MG/ML VIAL 10 MG IV PUSH ×2 (13:15→17:18)
--- NOTE | 2024-06-13 13:41 | ECG_ITS ---
Test Date: 2024-06-13 13:53:47 Measurements Intervals [place] Rate: 36 P: 0 WV: 0 QRS: 19 QRSD: 83 T: 45 QT: 519 QTc: 407 Interpretive Statements ATRIAL FLUTTER/TACHYCARDIA WITH SLOW VENTRICULAR RESPONSE CONSIDER ANTERIOR INFARCT, AGE INDETERMINATE ABNORMAL ECG Compared to ECG 06/13/2024 11:07:27 HEART RATE HAS DECREASED Electronically Signed On 06-13-2024 15:28:55 CDT by Red De La Rosa D.O.
--- NOTE | 2024-06-13 14:52 | PM.IMHP ---
H&P: HPI History of Present Illness Date/Time: 06/13/24 14:52 Chief Complaint: Weakness Narrative: 69 y/o M presents here with weakness and fatigue with PMH of aortic stenosis, AFib, CAD, HTN, HLD, CKD, MCKAY intolerant of CPAP, and diabetes. The patient presents here from home for further evaluation of fatigue and weakness. Patient reports onset of fatigue and weakness for the past 1-2 weeks. This is accompanied by chest pain, shortness, palpitations, nausea, vomiting, dizziness, fever, chills, or diarrhea. Endorsing body aches primarily to his BLE. Also reporting some difficulty with word finding over the past week. Family reports they have noticed some intermittent confusion in the past week. Patient also reporting blurred vision in his right eye that is not accompanied by diplopia. Patient denies focal weakness, dysarthria, changes in gait, focal numbness, or difficulty swallowing. Patient has known CKD stage 5. Patient follows with Nephrology through [place] with last visit on 04/16/24 with Jeni MARIE. Per his note, the patient was educated that he is near dialysis (initiation with GFR 7-12), patient refused Kidney Smart class (education about dialysis), discussed outcomes of not starting dialysis when indicated, and patient is requesting PD if dialysis is indicated and he would like to proceed with dialysis. However, he reports once his family found out about his kidney function and dialysis the further educated him that it was not like chemotherapy/in Oncology problem. Patient is now scheduled for fistula placement on 07/04 at [facility]. Initial VS at presentation: 97.7? F, HR 43, R 16, 183/80, and 98% on RA ED workup showed: No leukocytosis, hemoglobin 12.6, INR 1.7, creatinine 7.2 and GFR 8 (previously 6.26 and 9 on 05/26/2024), calcium 8.0, initial troponin 0.089, and BNP 40609. CXR showed very small bilateral pleural effusions. Head CT showed no significant abnormality. Review of Systems Review of Systems: All systems reviewed & are unremarkable except as noted in HPI and below [facility] Past Medical History Medical History Actinic keratosis Aortic stenosis Status post TAVR repeat echo 05/01/2022: Moderate concentric left ventricular hypertrophy, normal global left ventricular systolic function with EF of 60%, basal inferior segment hypokinesis, mitral valve leaflets mildly thickened, mild mitral valve regurgitation, aortic valve not well-visualized peak gradient 23 mean gradient 12 valve area 1.07, no aortic regurgitation, normal appearing aortic valve prosthesis gradients normal for valve type and size, mild pulmonary hypertension with RVSP of 35, mild tricuspid regurgitation, atrial fibrillation, technically difficult study with limited views Atrial fibrillation (~2009) Chronic Basal cell carcinoma (BCC) of face BMI 34.0-34.9,adult CKD (chronic kidney disease) Coronary artery disease Left heart catheterization mild nonobstructive coronary artery disease September 2021 Diabetic peripheral neuropathy Diverticulosis Essential hypertension 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 Mixed hyperlipidemia Nonrheumatic aortic (valve) insufficiency Nonrheumatic aortic valve stenosis Normal colonoscopy (~2009) Demonstrating diverticulosis and internal hemorrhoids Obstructive sleep apnea Did not tolerate CPAP Sepsis Type 2 diabetes mellitus Surgical History Surgical History H/O hand surgery H/O inguinal hernia repair (~1979) History of ankle surgery (~1989) History of lumbar surgery (~1985) History of sleeve gastrectomy (04/2016) Status post transcatheter aortic valve replacement (TAVR) using bioprosthesis (~10/27/21) 29 mm [place] Maged 3 ultra Family History Family History Sibling Family history of cardiovascular disease Diabetes mellitus Family history of
[2024-06-13] MEDS: PERFLUTREN LIPID MICROSPHERES 1.5 ML VIAL DILUTED TO 10 ML TOTAL VOLUME IV PUSH (16:20)
--- NOTE | 2024-06-13 16:21 | PC.NURSE ---
US at bedside
--- NOTE | 2024-06-13 16:42 | IVDEFINITY ---
Prior to administration of IV Definity the patient was educated on the risks and benefits of the imaging enhancing agent including potential adverse side effects. The patient verbalized understanding. Allergies were verified. No exclusion criteria were identified and at least one of the following inclusion criteria were met: 1) physician request, 2) patient technically difficult to image (per the [place] [employer] guidelines of two or more segments not discernable within the apical view), or 3) questionable left ventricular function. ?
--- NOTE | 2024-06-13 17:00 | ADMGEN ---
This patient, Wesley Sanchez, was admitted to IMU Room 209-. Patient/family oriented to hospital policies and general routines including ID bracelet, bed and alarms, visiting hours, pain management, procedures, bathroom and other care routines, personal items, smoking policy, room service/diet, and visiting hours. Information on how to activate the Rapid Response Team has been discussed. Patient/Family are encouraged to report perceived risks to care and to ask questions if they do not understand what they are told or what they should do.
[2024-06-13] MEDS: FUROSEMIDE INJ 100 MG/10 ML VIAL 80 MG IV PUSH (18:33)
--- NOTE | 2024-06-13 18:43 | PC.NURSE ---
Hospitalist murray called and notified of BP 191/89 117 MAP status post hydralazine 10mg given at bedside, Hospitalist agreed with plan of Lasix 80mg first, then hydralazine if BP retake above 180.
[2024-06-13 19:59] LABS: Glucose Point of Care 205 mg/dl (65-105)
--- NOTE | 2024-06-13 20:32 | ED.WEAKNESS ---
HPI - Weakness General Chief complaint: Weakness Stated complaint: weakness Time Seen by Provider: 06/13/24 11:49 History of Present Illness HPI Narrative: This is a 69-year-old male with a past medical history significant for chronic AFib on Eliquis, hypertension, hyperlipidemia, CKD not presently undergoing dialysis but plans for outpatient fistula next month. Today presents with a vague complaint of fatigue and weakness. He presents with family member she states that the past 2 weeks he has been having more fatigue and weakness and lethargy at home. Patient states this is not accompanied by anything like chest pain or difficulty breathing he denies any nauseousness, vomiting, lightheadedness, fever, chills or any abdominal pain. He states his bilateral lower extremities are aching any feels generally weak. He reports transient vision blurring at of his right eye for presently it is at baseline without any vision deficits. Patient follows with Nephrology Dr. Ngo with plans to undergo hemodialysis in the near future but not presently undergoing any kind of intermittent dialysis or any kind of catheter placement prior to his fistula next month. Related Data Home Medications Medication Instructions Recorded Confirmed aspirin 81 mg tablet 81 mg PO DAILY 08/30/22 06/13/24 ezetimibe 10 mg tablet 10 mg PO DAILY 08/30/22 06/13/24 magnesium 200 mg tablet 400 mg PO DAILY 08/30/22 06/13/24 multivitamin (Daily Multi-Vitamin 1 tablet PO DAILY 08/30/22 06/13/24 tablet) atorvastatin 80 mg tablet 80 mg PO DAILY 09/15/22 06/13/24 ascorbic acid (vitamin C) 500 mg 500 mg PO DAILY 06/13/24 06/13/24 tablet,extended release Allergies Allergy/AdvReac Type Severity Reaction Status Date / Time Sulfa (Sulfonamide Allergy Unknown Rash Verified 05/30/24 13:13 Antibiotics) Review of Systems Review of Systems: as reviewed above in H[facility] Past Medical History Medical History Actinic keratosis Aortic stenosis Status post TAVR repeat echo 05/01/2022: Moderate concentric left ventricular hypertrophy, normal global left ventricular systolic function with EF of 60%, basal inferior segment hypokinesis, mitral valve leaflets mildly thickened, mild mitral valve regurgitation, aortic valve not well-visualized peak gradient 23 mean gradient 12 valve area 1.07, no aortic regurgitation, normal appearing aortic valve prosthesis gradients normal for valve type and size, mild pulmonary hypertension with RVSP of 35, mild tricuspid regurgitation, atrial fibrillation, technically difficult study with limited views Atrial fibrillation (~2009) Chronic Basal cell carcinoma (BCC) of face BMI 34.0-34.9,adult CKD (chronic kidney disease) Coronary artery disease Left heart catheterization mild nonobstructive coronary artery disease September 2021 Diabetic peripheral neuropathy Diverticulosis Essential hypertension FPC (current) use of anticoagulants Mixed hyperlipidemia Nonrheumatic aortic (valve) insufficiency Nonrheumatic aortic valve stenosis Normal colonoscopy (~2009) Demonstrating diverticulosis and internal hemorrhoids Obstructive sleep apnea Did not tolerate CPAP Sepsis Type 2 diabetes mellitus Surgical History Surgical History H/O hand surgery H/O inguinal hernia repair (~1979) History of ankle surgery (~1989) History of lumbar surgery (~1985) History of sleeve gastrectomy (04/2016) Status post transcatheter aortic valve replacement (TAVR) using bioprosthesis (~10/27/21) 29 mm [place] Maged 3 ultra Family History Family History Sibling Family history of cardiovascular disease Diabetes mellitus Family history of malignant neoplasm of breast in first degree relative Family history of coronary artery disease Carcinoma of colon Hypertension
[2024-06-14] VITALS (18 sets, daily range): BP systolic 157–220; BP diastolic 54–95; PULSE 42–67; RESP 16–18; TEMP 36.4–36.9; O2SAT 93–99
[2024-06-14] MEDS: hydrALAZINE HCL 20 MG/ML VIAL 10 MG IV PUSH ×2 (00:26→08:35)
[2024-06-14 03:50] LABS: Hemoglobin A1C 8.5 % (<5.7)
[2024-06-14 05:00] LABS: Basophils Absolute Auto 0.1 K/mm3 (0.0-0.1); Basophils Percent Auto 0.7 % (0.2-1.2); Eosinophils Absolute Auto 0.3 K/mm3 (0-0.3); Eosinophils Percent Auto 3.5 % (0-4.4); Hematocrit 34.5 % (42.0-52.0); Hemoglobin 11.3 g/dL (14.0-18.0); Immature Granulocyte Absolute 0.03 K/mm3 (0.00-0.031); Immature Granulocyte Percent A 0.4 % (0-0.5); Lymphocytes Absolute Auto 0.85 K/mm3 (0.9-3.2); Lymphocytes Percent Auto 10.2 % (18.3-44.2); Mean Corpuscular HGB Conc 32.8 g/dl (32-36); Mean Corpuscular Hemoglobin 32.6 pg (26-34); Mean Corpuscular Volume 99.4 fl (80-100); Mean Platelet Volume 11.1 fl (7.4-10.4); Monocytes Absolute Auto 0.9 K/mm3 (0.1-0.6); Monocytes Percent Auto 10.8 % (2.6-8.5); Neutrophils Absolute Auto 6.2 K/mm3 (1.3-6.7); Neutrophils Percent Auto 74.4 % (45.5-73.1); Platelet Count Result 236 k/mm3 (150-375); Red Blood Count 3.47 M/mm3 (4.6-6.20); Red Cell Distribution Width 13.5 % (11.5-14.5); White Blood Count 8.3 K/mm3 (4.5-10.0)
[2024-06-14 05:03] LABS: INR 1.6; Prothrombin Time 19.5 Seconds (11.1-14.7)
[2024-06-14 05:10] LABS: Alanine Aminotransferase 27 U/L (6-50); Albumin Level 3.2 g/dL (3.5-5.1); Alkaline Phosphatase 95 U/L (38-126); Anion Gap 13 mmol/L (4-12); Aspartate Amino Transferase 36 U/L (17-59); Bilirubin,Total 0.6 mg/dL (0.2-1.3); Blood Urea Nitrogen 68 mg/dL (9-20); Calcium 7.9 mg/dL (8.4-10.2); Carbon Dioxide 16 mmol/L (22-30); Chloride 105 mmol/L (98-107); Estimated CRCL calculation 12 ml/min; Estimated Glomerular Filt Rate 8; Glucose 178 mg/dL (65-110); Magnesium 2.4 mg/dL (1.6-2.3); Potassium 4.3 mmol/L (3.4-5.0); Sodium 134 mmol/L (137-145)
[2024-06-14] MEDS: MULTIVITAMINS THERAPEUTIC TAB (*BKC) 1 TABLET PO (08:34)
[2024-06-14] MEDS: ATORVASTATIN 40 MG TABLET 80 MG PO (08:34)
[2024-06-14] MEDS: MAGNESIUM OXIDE 400 MG TABLET PO (08:34)
[2024-06-14] MEDS: GLIMEPIRIDE 2 MG TABLET PO (08:35)
[2024-06-14] MEDS: EZETIMIBE 10 MG TABLET PO (08:35)
[2024-06-14] MEDS: ASCORBIC ACID 500 MG TABLET PO (08:36)
[2024-06-14] MEDS: amLODIPine BESYLATE 5 MG TABLET PO ×2 (08:36→16:33)
[2024-06-14 08:39] LABS: Glucose Point of Care 156 mg/dl (65-105)
[2024-06-14] MEDS: ASPIRIN 81 MG CHEWABLE TABLET PO (09:26)
--- NOTE | 2024-06-14 09:45 | PM.CNNEP ---
Assessment and Plan Assessment and plan (1) Chronic kidney disease, stage 5: Code(s): N18.5 - Chronic kidney disease, stage 5 Status: Chronic Assessment and Plan: slow and steady progression over the last several months (since February 2024) now complicated by symptoms possibly related to uremia (weakness, fatigue, lethargy...etc) no critical electrolytes but with worsening lower extremity edema as well scheduled for AVF placement at [facility] with Dr. Ling later this month no emergent need for INSPECTOR OF WEIGHTS AND MEASURES/dialysis today but his presentation and symptoms are concerning...see discussion below follow trend of renal function and UOP (2) Generalized weakness: Code(s): R53.1 - Weakness Status: Acute Assessment and Plan: suspect this along with fatigue and lethargy are early signs of uremia noted GFR running less than 10 as well suspect these symptoms will likely continue to progress without intervention (3) Essential hypertension: Code(s): I10 - Essential (primary) hypertension Status: Acute Assessment and Plan: quite elevated on presentation resumed on home medications change amlodipine to bid and add oral hydralazine on PRN IV hydralazine as well good resonse to IV diuretics; will start oral diuretics given LE edema follow trend of hemodynamics (4) Anemia: Code(s): D64.9 - Anemia, unspecified Status: Acute Assessment and Plan: related to advanced CKD no need for AJAY at this time follow trend of H/H (5) Diabetes mellitus type 2, uncontrolled: Qualifiers: Glycemic state: with hyperglycemia Qualified Code(s): E11.65 - Type 2 diabetes mellitus with hyperglycemia Code(s): E11.65 - Type 2 diabetes mellitus with hyperglycemia Status: Acute Assessment and Plan: follow accu-cheks glycemic control per hospitalists Long extensive discussion (greater than 20 minutes) with the patient as well as multiple family members present at bedside including his , son, and [id number] regarding his advanced chronic kidney disease with noted slow progression in the last few months along with his admission symptoms of fatigue, weakness, and lethargy which may be early signs of uremia. I voiced my concerns that although there is already a plan in place for an AV fistula placement later this month, it that it may take another 4-6 weeks if not longer for him to heal from this surgery prior to actual initiation of renal replacement therapy/dialysis. I have concerns that his symptoms that he has already dealing with will progressively get worse making it more difficult for him to transition to the need for dialysis. although he does not have any critical electrolyte abnormalities, his concerning symptoms for uremia in conjunction with his increased lower extremity swelling/ edema and fluctuating blood pressure control may be early manifestations that renal replacement therapy/dialysis may be needed sooner rather than later. I discussed with him as well as family the options to consider including attempting to proceed with the outpatient plan for AVF placement and subsequent dialysis versus initiating renal replacement therapy/dialysis now via placement of a tunneled dialysis catheter. I discussed the procedure of placement of a tunneled dialysis catheter as well as subsequent initiation of dialysis here in the hospital and the need for outpatient dialysis on discharge as well. He wanted to think about this a bit more after my conversation with him as well as talk it over with his family and let me know what he decides to do. I will continue to hold his Eliquis in anticipation of possible further procedures. I will continue to follow the patient with you while he remains hospitalized and make further recommendations as deemed necessary. Thank you for allowing me to participate in the care of this patient. History of Present Illness Reason for
[2024-06-14 11:48] LABS: Hepatitis B Surface Antigen Negative (Negative)
[2024-06-14 12:03] LABS: Hepatitis B Surface Anti Res Negative
[2024-06-14 12:28] LABS: Glucose Point of Care 156 mg/dl (65-105)
--- NOTE | 2024-06-14 13:17 | PC.NURSE ---
dr berry at bedside, family has agreed with current plan for dialysis. Surgery will be consulted by dr. berry
--- NOTE | 2024-06-14 13:58 | PM.IMPN ---
Progress Note: A&P Assessment and Plan (1) CKD (chronic kidney disease): Qualifiers: Chronic kidney disease stage: stage 3 (moderate) Chronic kidney disease stage 3 subtype: stage 3b (GFR 30-44) Qualified Code(s): N18.32 - Chronic kidney disease, stage 3b Code(s): N18.9 - Chronic kidney disease, unspecified Status: Acute Assessment and Plan: - creatinine 7.2 and GFR 8, previously 6.26 and 9 on 05/26/2024 - hx of CKD stage 5 to start dialysis today per nephrology nephrology on board (2) Elevated troponin: Code(s): R79.89 - Other specified abnormal findings of blood chemistry Status: Acute Assessment and Plan: - EKG, initial: Atrial flutter/tachycardia with slow ventricular response, rate 42, low QRS voltage in precordial leads, consider anterior infarct age indeterminate, borderline ST-T-wave abnormality in lateral/hi leads. - EKG, repeat (1): Atrial flutter/tachycardia with slow ventricular response, rate 36, nonspecific T-wave abnormality. When compared to EKG done earlier today T-wave abnormality now present and TX finding no longer present. Awaiting formal read - CXR: Very small bilateral pleural effusions - Troponin: 0.089 -> 0.080, 6 hour pending - BNP 64702 - most recent echo (2021): Normal systolic function, EF estimated EF 50-55%. See report for details. - suspect elevation in troponin may be secondary to hypervolemia due to worsening kidney function, nephrology consulted for this problem. Patient still makes urine, will trial 80 of Lasix. Echo ordered. - telemetry monitoring (3) Diabetes mellitus type 2, uncontrolled: Qualifiers: Glycemic state: with hyperglycemia Qualified Code(s): E11.65 - Type 2 diabetes mellitus with hyperglycemia Code(s): E11.65 - Type 2 diabetes mellitus with hyperglycemia Status: Acute Assessment and Plan: - hypoglycemia protocol - POC blood glucose ACHS - home medication: Glimepiride 2 mg daily - correct regimen ordered - low dose TIDWM, based of TDD - A1C 10% on 08/17/2023, update (4) Essential hypertension: Code(s): I10 - Essential (primary) hypertension Status: Acute Assessment and Plan: - improving - continue home medications: Amlodipine 5 mg daily, metoprolol XL 50 HS. - continue adjusting with clinical course - monitor Plan Diet: renal/dialysis GI Prophylaxis: Not currently indicated DVT Prophylaxis: Hold Eliquis (possible procedure), start SCDs Lines: Peripheral Code Status: Full code Subjective Date/time seen: 06/14/24 13:58 Interval history: Comfortable at bedside and noted feeling better today. was being worked up to start dialysis for progressive CKD Nephrology preparing to start patient on dialysis inpatient Review of Systems Review of Systems: All systems reviewed & are unremarkable except as noted in HPI and below Exam Narrative: General: alert and comfortable Eyes: EOMI, PERRLA ENNT External ears normal, Neck is supple, no masses, Respiratory systems: Clear to auscultation Cardiovascular S1, S2, normal rhythm, no murmur, rub, or gallop; no thrill or palpable murmurs on palpation. Gastrointestinal: soft, non-tender, and non-distended abdomen with no masses; BS present Skin: no rash, lesions, ulcerations, subcutaneous nodules or induration Musculoskeletal: bilateral lower extremities edema Neurologic: Alert and oriented x3, non focal Mental Status Exam: normal affect Objective Data Vital Signs Vital Signs: Vital Signs - 24 hr 06/13/24 14:01 06/13/24 14:16 06/13/24 14:31 Temperature Pulse Rate 37 L 48 L 37 L Respiratory Rate 14 14 13 Blood Pressure 184/82 H 169/75 H 179/76 H Pulse Oximetry 99 98 100 Oxygen Delivery 06/13/24 15:01 06/13/24 15:44 06/13/24 16:45 Temperature 97.1 F L Pulse Rate 53 L 52 L 62 Respiratory Rate 14 16 18 Blood Pressure 185/78 H 194/81 H 218/105 H Pulse Oxim
--- NOTE | 2024-06-14 14:27 | PC.NURSE ---
Dr. Bellamy called and notified of 17 beat run of vtach, bmp and mag labs ordered at 14:14
[2024-06-14] MEDS: hydrALAZINE HCL 25 MG TABLET PO (16:32)
[2024-06-14 16:42] LABS: Glucose Point of Care 246 mg/dl (65-105)
[2024-06-14] MEDS: INSULIN ASPART (*BKC) 100 UNITS/ML SUB-Q (16:44)
--- NOTE | 2024-06-14 16:52 | PC.NURSE ---
Reviewed and approved documentation for Mariajose Ramey [facility]
[2024-06-14 19:48] LABS: Anion Gap 13 mmol/L (4-12); Blood Urea Nitrogen 70 mg/dL (9-20); Carbon Dioxide 19 mmol/L (22-30); Chloride 102 mmol/L (98-107); Estimated CRCL calculation 12 ml/min; Estimated Glomerular Filt Rate 8; Glucose 292 mg/dL (65-110); Magnesium 2.4 mg/dL (1.6-2.3); Potassium 4.2 mmol/L (3.4-5.0); Sodium 134 mmol/L (137-145)
[2024-06-14 19:59] LABS: Glucose Point of Care 300 mg/dl (65-105)
[2024-06-14] MEDS: HEPARIN SODIUM 5,000 UNITS/ML VIAL 5000 UNITS SUB-Q (20:18)
[2024-06-14] MEDS: INSULIN ASPART (*BKC) 100 UNITS/ML 6 UNITS SUB-Q (20:18)
[2024-06-14 23:59] LABS: Glucose Point of Care 162 mg/dl (65-105)
[2024-06-15] VITALS (19 sets, daily range): BP systolic 141–212; BP diastolic 65–86; PULSE 51–69; RESP 18–20; TEMP 36–36.7; O2SAT 96–99
[2024-06-15] MEDS: hydrALAZINE HCL 20 MG/ML VIAL 10 MG IV PUSH (00:07)
[2024-06-15 04:04] LABS: Basophils Absolute Auto 0.1 K/mm3 (0.0-0.1); Basophils Percent Auto 0.8 % (0.2-1.2); Eosinophils Absolute Auto 0.4 K/mm3 (0-0.3); Eosinophils Percent Auto 4.1 % (0-4.4); Hematocrit 36.5 % (42.0-52.0); Hemoglobin 11.9 g/dL (14.0-18.0); Immature Granulocyte Absolute 0.05 K/mm3 (0.00-0.031); Immature Granulocyte Percent A 0.5 % (0-0.5); Lymphocytes Absolute Auto 1.67 K/mm3 (0.9-3.2); Lymphocytes Percent Auto 18.1 % (18.3-44.2); Mean Corpuscular HGB Conc 32.6 g/dl (32-36); Mean Corpuscular Hemoglobin 31.8 pg (26-34); Mean Corpuscular Volume 97.6 fl (80-100); Monocytes Percent Auto 11.3 % (2.6-8.5); Neutrophils Percent Auto 65.2 % (45.5-73.1); Platelet Count Result 275 k/mm3 (150-375); Red Blood Count 3.74 M/mm3 (4.6-6.20); Red Cell Distribution Width 13.5 % (11.5-14.5); White Blood Count 9.2 K/mm3 (4.5-10.0)
[2024-06-15 04:15] LABS: Alanine Aminotransferase 27 U/L (6-50); Albumin Level 3.4 g/dL (3.5-5.1); Alkaline Phosphatase 118 U/L (38-126); Anion Gap 14 mmol/L (4-12); Aspartate Amino Transferase 35 U/L (17-59); Bilirubin,Total 0.6 mg/dL (0.2-1.3); Blood Urea Nitrogen 65 mg/dL (9-20); Calcium 8.3 mg/dL (8.4-10.2); Carbon Dioxide 18 mmol/L (22-30); Chloride 104 mmol/L (98-107); Estimated CRCL calculation 11 ml/min; Estimated Glomerular Filt Rate 7; Glucose 93 mg/dL (65-110); Magnesium 2.5 mg/dL (1.6-2.3); Potassium 3.6 mmol/L (3.4-5.0); Sodium 136 mmol/L (137-145)
[2024-06-15] MEDS: amLODIPine BESYLATE 5 MG TABLET PO ×2 (05:06→20:50)
[2024-06-15] MEDS: hydrALAZINE HCL 25 MG TABLET PO ×2 (05:06→13:44)
[2024-06-15] MEDS: HEPARIN SODIUM 5,000 UNITS/ML VIAL 5000 UNITS SUB-Q ×3 (05:06→20:50)
[2024-06-15 07:37] LABS: Glucose Point of Care 99 mg/dl (65-105)
[2024-06-15 08:23] LABS: Hepatitis B Core Ab Total NON-REACTIVE (NON-REACTIVE)
[2024-06-15] MEDS: MULTIVITAMINS THERAPEUTIC TAB (*BKC) 1 TABLET PO (08:36)
[2024-06-15] MEDS: ATORVASTATIN 40 MG TABLET 80 MG PO (08:36)
[2024-06-15] MEDS: MAGNESIUM OXIDE 400 MG TABLET PO (08:36)
[2024-06-15] MEDS: GLIMEPIRIDE 2 MG TABLET PO (08:36)
[2024-06-15] MEDS: ASCORBIC ACID 500 MG TABLET PO (08:36)
[2024-06-15] MEDS: EZETIMIBE 10 MG TABLET PO (08:36)
[2024-06-15] MEDS: ASPIRIN 81 MG CHEWABLE TABLET PO (08:36)
--- NOTE | 2024-06-15 10:35 | P.PNNP_ITS ---
Progress Note: A&P Assessment and Plan (1) Chronic kidney disease, stage 5: Code(s): N18.5 - Chronic kidney disease, stage 5 Status: Chronic Assessment and Plan: * slow and steady progression over the last several months (since February 2024) * now complicated by symptoms possibly related to uremia (weakness, fatigue, lethargy...etc) * no critical electrolytes but with worsening lower extremity edema as well * scheduled for AVF placement at [facility] with Dr. Ling later this month * no emergent need for REFERENCE AND INSTRUCTION LIBRARIAN/dialysis today but his presentation and symptoms are concerning... * will proceed with initiation of hemodialysis during this hospitalization * General Surgery consulted for placement of tunneled HD catheter * follow trend of renal function and UOP (2) Generalized weakness: Code(s): R53.1 - Weakness Status: Acute Assessment and Plan: * suspect this along with fatigue and lethargy are early signs of uremia * noted GFR running less than 10 as well * suspect these symptoms will likely continue to progress without intervention * plan REFERENCE AND INSTRUCTION LIBRARIAN/dialysis for treatment (3) Essential hypertension: Code(s): I10 - Essential (primary) hypertension Status: Acute Assessment and Plan: * quite elevated on presentation * resumed on home medications * change amlodipine to bid and added oral hydralazine * on PRN IV hydralazine as well * good response to IV diuretics so started on oral diuretics given LE edema * once dialysis initiated, will likely add ALICIA-I/ARB therapy * follow trend of hemodynamics (4) Anemia: Code(s): D64.9 - Anemia, unspecified Status: Acute Assessment and Plan: * related to advanced CKD * no need for AJAY at this time * follow trend of H/H (5) Diabetes mellitus type 2, uncontrolled: Qualifiers: Glycemic state: with hyperglycemia Qualified Code(s): E11.65 - Type 2 diabetes mellitus with hyperglycemia Code(s): E11.65 - Type 2 diabetes mellitus with hyperglycemia Status: Acute Assessment and Plan: * follow accu-cheks * glycemic control per hospitalists Will continue to follow. Subjective Date/time seen: 06/15/24 10:35 Interval history: Follow-up for chronic kidney disease. No apparent distress voiced at the time of my visit; eating and drinking okay a nd reasonable urine output with oral diuretic therapy; still feels weak and fatigued but no worse since admission; BP still running a bit high so medications have been adjusted; no issues/events overnight or earlier this morning to report; case discussed with family at bedside. Exam Narrative: General: elderly but WD/WN male in NAD Heart: normal S1 and S2; no rub Lungs: clear anteriorly; slightly decreased at bases Abdomen: soft, nontender, nondistended, positive bowel sounds Extremities: no cyanosis or clubbing; 2+ edema Skin: warm and dry Objective Data Vital Signs Vital Signs: Vital Signs Temp Pulse Resp BP Pulse Ox O2 Del Method 06/15/24 10:25 97.6 F 68 20 180/81 H 98 06/15/24 10:00 64 06/15/24 08:00 69 06/15/24 08:30 Room Air 06/15/24 07:51 97.7 F 67 20 171/79 H 98 06/15/24 06:24 175/84 H 06/15/24 05:55 66 06/15/24 04:00 97.7 F 66 18 194/82 H 97 06/15/24 04:00 Room Air 06/15/24 04:00
--- NOTE | 2024-06-15 10:35 | PM.PNNEP ---
Progress Note: A&P Assessment and Plan (1) Chronic kidney disease, stage 5: Code(s): N18.5 - Chronic kidney disease, stage 5 Status: Chronic Assessment and Plan: slow and steady progression over the last several months (since February 2024) now complicated by symptoms possibly related to uremia (weakness, fatigue, lethargy...etc) no critical electrolytes but with worsening lower extremity edema as well scheduled for AVF placement at [facility] with Dr. Ling later this month no emergent need for SAWMILL SUPERVISOR/dialysis today but his presentation and symptoms are concerning... will proceed with initiation of hemodialysis during this hospitalization General Surgery consulted for placement of tunneled HD catheter follow trend of renal function and UOP (2) Generalized weakness: Code(s): R53.1 - Weakness Status: Acute Assessment and Plan: suspect this along with fatigue and lethargy are early signs of uremia noted GFR running less than 10 as well suspect these symptoms will likely continue to progress without intervention plan SAWMILL SUPERVISOR/dialysis for treatment (3) Essential hypertension: Code(s): I10 - Essential (primary) hypertension Status: Acute Assessment and Plan: quite elevated on presentation resumed on home medications change amlodipine to bid and added oral hydralazine on PRN IV hydralazine as well good response to IV diuretics so started on oral diuretics given LE edema once dialysis initiated, will likely add ALICIA-I/ARB therapy follow trend of hemodynamics (4) Anemia: Code(s): D64.9 - Anemia, unspecified Status: Acute Assessment and Plan: related to advanced CKD no need for AJAY at this time follow trend of H/H (5) Diabetes mellitus type 2, uncontrolled: Qualifiers: Glycemic state: with hyperglycemia Qualified Code(s): E11.65 - Type 2 diabetes mellitus with hyperglycemia Code(s): E11.65 - Type 2 diabetes mellitus with hyperglycemia Status: Acute Assessment and Plan: follow accu-cheks glycemic control per hospitalists Will continue to follow. Subjective Date/time seen: 06/15/24 10:35 Interval history: Follow-up for chronic kidney disease. No apparent distress voiced at the time of my visit; eating and drinking okay and reasonable urine output with oral diuretic therapy; still feels weak and fatigued but no worse since admission; BP still running a bit high so medications have been adjusted; no issues/events overnight or earlier this morning to report; case discussed with family at bedside. Exam Narrative: General: elderly but WD/WN male in NAD Heart: normal S1 and S2; no rub Lungs: clear anteriorly; slightly decreased at bases Abdomen: soft, nontender, nondistended, positive bowel sounds Extremities: no cyanosis or clubbing; 2+ edema Skin: warm and dry Objective Data Vital Signs Vital Signs: Vital Signs Temp Pulse Resp BP Pulse Ox O2 Del Method 06/15/24 10:25 97.6 F 68 20 180/81 H 98 06/15/24 10:00 64 06/15/24 08:00 69 06/15/24 08:30 Room Air 06/15/24 07:51 97.7 F 67 20 171/79 H 98 06/15/24 06:24 175/84 H 06/15/24 05:55 66 06/15/24 04:00 97.7 F 66 18 194/82 H 97 06/15/24 04:00 Room Air 06/15/24 04:00 61 06/15/24 02:00 66 06/15/24 01:29 141/65 H 06/15/24 00:00 67 06/15/24 00:00 Room Air 06/15/24 00:00 98.0 F 56 L 18 200/86 H 96 06/14/24 22:00 57 L 06/14/24 20:00 60 06/14/24 21:35 47 L 06/14/24 20:00 Room Air 06/14/24 19:58 97.6 F 48 L 18 175/87 H 97 06/14/24 16:54 67 06/14/24 16:00 67 16 99 Room Air 06/14/24 16:00 62 06/14/24 16:00 97.8 F 60 16 197/95 H 99 Intake/Output Intake/Output: Intake & Output 06/12/24 06/13/24 06/14/24 06/15/24 23:59 23:59 23:59 23:59 Intake Total 240 480 850
[2024-06-15] MEDS: METOPROLOL SUCCINATE EXT REL 50 MG TABCR PO (11:33)
[2024-06-15 11:35] LABS: Glucose Point of Care 197 mg/dl (65-105)
--- NOTE | 2024-06-15 12:48 | PM.CNGS ---
Assessment and Plan Assessment and plan (1) Chronic kidney disease (CKD), stage V: Code(s): N18.5 - Chronic kidney disease, stage 5 Status: Acute Assessment and Plan: Plan to place right internal jugular tunneled dura flow catheter using ultrasound and fluoroscopy on Sunday around noon. I discussed the procedure thoroughly with the patient. His family was present. All questions were answered. He understands and agrees to go ahead. (2) Diabetes mellitus type 2, uncontrolled: Qualifiers: Glycemic state: with hyperglycemia Qualified Code(s): E11.65 - Type 2 diabetes mellitus with hyperglycemia Code(s): E11.65 - Type 2 diabetes mellitus with hyperglycemia Status: Acute Assessment and Plan: Much improved since admission History of Present Illness Consult details Consult date: 06/15/24 Reason for consult: central line (Needs tunneled dialysis catheter) Requesting physician: Corey Bose MD Narrative: Patient with end-stage renal disease. He is going to have a left arm fistula or [place] graft placed next month. I was asked to see the patient for placement of a tunneled internal jugular dialysis catheter on Sunday or Sunday. Review of Systems Review of Systems: All systems reviewed & are unremarkable except as noted in HPI and below (HPI) [facility] Past Medical History Medical History Actinic keratosis Aortic stenosis Status post TAVR repeat echo 05/01/2022: Moderate concentric left ventricular hypertrophy, normal global left ventricular systolic function with EF of 60%, basal inferior segment hypokinesis, mitral valve leaflets mildly thickened, mild mitral valve regurgitation, aortic valve not well-visualized peak gradient 23 mean gradient 12 valve area 1.07, no aortic regurgitation, normal appearing aortic valve prosthesis gradients normal for valve type and size, mild pulmonary hypertension with RVSP of 35, mild tricuspid regurgitation, atrial fibrillation, technically difficult study with limited views Atrial fibrillation (~2009) Chronic Basal cell carcinoma (BCC) of face BMI 34.0-34.9,adult CKD (chronic kidney disease) Coronary artery disease Left heart catheterization mild nonobstructive coronary artery disease September 2021 Diabetic peripheral neuropathy Diverticulosis Essential hypertension USP (current) use of anticoagulants Mixed hyperlipidemia Nonrheumatic aortic (valve) insufficiency Nonrheumatic aortic valve stenosis Normal colonoscopy (~2009) Demonstrating diverticulosis and internal hemorrhoids Obstructive sleep apnea Did not tolerate CPAP Sepsis Type 2 diabetes mellitus Surgical History Surgical History H/O hand surgery H/O inguinal hernia repair (~1979) History of ankle surgery (~1989) History of lumbar surgery (~1985) History of sleeve gastrectomy (04/2016) Status post transcatheter aortic valve replacement (TAVR) using bioprosthesis (~10/27/21) 29 mm [place] Maged 3 ultra Family History Family History Sibling Family history of cardiovascular disease Diabetes mellitus Family history of malignant neoplasm of breast in first degree relative Family history of coronary artery disease Carcinoma of colon Hypertension Cerebrovascular accident Father Family history of malignant neoplasm Tobacco abuse Lung cancer Grandparent Family history of kidney disease Mother Rheumatoid arthritis Hypertension Sibling Tobacco abuse Cerebrovascular accident Other Family history of congestive heart failure Family history of obesity Social History Social History Social History: Caffeine-Coffee. Code status: Full code Surrogate decision maker: Rocco () Smoking pack
--- NOTE | 2024-06-15 15:10 | PM.IMPN ---
Progress Note: A&P Assessment and Plan (1) CKD (chronic kidney disease): Qualifiers: Chronic kidney disease stage: stage 3 (moderate) Chronic kidney disease stage 3 subtype: stage 3b (GFR 30-44) Qualified Code(s): N18.32 - Chronic kidney disease, stage 3b Code(s): N18.9 - Chronic kidney disease, unspecified Status: Acute Assessment and Plan: - creatinine 7.2 and GFR 8, previously 6.26 and 9 on 05/26/2024 - hx of CKD stage 5 to start dialysis today per nephrology nephrology on board (2) Elevated troponin: Code(s): R79.89 - Other specified abnormal findings of blood chemistry Status: Acute Assessment and Plan: - EKG, initial: Atrial flutter/tachycardia with slow ventricular response, rate 42, low QRS voltage in precordial leads, consider anterior infarct age indeterminate, borderline ST-T-wave abnormality in lateral/hi leads. - EKG, repeat (1): Atrial flutter/tachycardia with slow ventricular response, rate 36, nonspecific T-wave abnormality. When compared to EKG done earlier today T-wave abnormality now present and [place] finding no longer present. Awaiting formal read - CXR: Very small bilateral pleural effusions - Troponin: 0.089 -> 0.080, 6 hour pending - BNP 57274 - most recent echo (2021): Normal systolic function, EF estimated EF 50-55%. See report for details. - suspect elevation in troponin likely from worsening kidney function - telemetry monitoring (3) Diabetes mellitus type 2, uncontrolled: Qualifiers: Glycemic state: with hyperglycemia Qualified Code(s): E11.65 - Type 2 diabetes mellitus with hyperglycemia Code(s): E11.65 - Type 2 diabetes mellitus with hyperglycemia Status: Acute Assessment and Plan: - hypoglycemia protocol - POC blood glucose ACHS - home medication: Glimepiride 2 mg daily - correct regimen ordered - low dose TIDWM, based of TDD - A1C 10% on 08/17/2023, update (4) Essential hypertension: Code(s): I10 - Essential (primary) hypertension Status: Acute Assessment and Plan: - improving - continue home medications: Amlodipine 5 mg daily, metoprolol XL 50 HS. - continue adjusting with clinical course - monitor Plan Diet: renal/dialysis GI Prophylaxis: Not currently indicated DVT Prophylaxis: Hold Eliquis (possible procedure), start SCDs Lines: Peripheral Code Status: Full code Subjective Date/time seen: 06/15/24 15:10 Interval history: Comfortable at bedside, for dialysis tomorrow Review of Systems Review of Systems: All systems reviewed & are unremarkable except as noted in HPI and below Exam Narrative: General: alert and comfortable Eyes: EOMI, PERRLA ENNT External ears normal, Neck is supple, no masses, Respiratory systems: Clear to auscultation Cardiovascular S1, S2, normal rhythm, no murmur, rub, or gallop; no thrill or palpable murmurs on palpation. Gastrointestinal: soft, non-tender, and non-distended abdomen with no masses; BS present Skin: no rash, lesions, ulcerations, subcutaneous nodules or induration Musculoskeletal: bilateral lower extremities edema Neurologic: Alert and oriented x3, non focal Mental Status Exam: normal affect Const: General: comfortable and no acute distress Other: , male, nontoxic appearance, elderly HENMT: Face/Nose/Sinus: Normal nares present Mouth: Yes moist mucous membranes Eyes: Sclera: sclerae normal Pupils: Equal, round and reactive pupils present EOM: EOMs intact bilaterally Other: Exotropia on right Resp: Effort & Inspection: normal respiratory effort Auscultation: clear to auscultation bilaterally Cardio: Rate: bradycardic (40-50) Rhythm: regular rhythm Other: No murmur or rub. GI: Other: Abdomen soft, nondistended, nontender. Skin: General skin exam: normal color and no rashes or lesions noted Wounds: no wounds Neuro: Cranial nerves: Yes Equ
[2024-06-15] MEDS: BUMETANIDE 1 MG TABLET 2 MG PO (16:14)
[2024-06-15] MEDS: INSULIN ASPART (*BKC) 100 UNITS/ML SUB-Q (16:14)
[2024-06-15 16:37] LABS: Glucose Point of Care 211 mg/dl (65-105)
[2024-06-15] MEDS: hydrALAZINE HCL 25 MG TABLET 50 MG PO (20:50)
[2024-06-15 20:51] LABS: Glucose Point of Care 191 mg/dl (65-105)
[2024-06-16] VITALS (32 sets, daily range): BP systolic 131–217; BP diastolic 63–126; PULSE 46–118; RESP 10–20; TEMP 36.1–37.2; O2SAT 95–100
[2024-06-16 05:13] LABS: Basophils Absolute Auto 0.1 K/mm3 (0.0-0.1); Eosinophils Absolute Auto 0.3 K/mm3 (0-0.3); Eosinophils Percent Auto 4.8 % (0-4.4); Hematocrit 32.9 % (42.0-52.0); Hemoglobin 10.5 g/dL (14.0-18.0); Immature Granulocyte Absolute 0.03 K/mm3 (0.00-0.031); Immature Granulocyte Percent A 0.4 % (0-0.5); Immature Platelet Fraction Pct 3.7 % (0.9-11.2); Lymphocytes Absolute Auto 1.18 K/mm3 (0.9-3.2); Lymphocytes Percent Auto 16.6 % (18.3-44.2); Mean Corpuscular HGB Conc 31.9 g/dl (32-36); Mean Corpuscular Hemoglobin 32.4 pg (26-34); Mean Corpuscular Volume 101.5 fl (80-100); Mean Platelet Volume 11.3 fl (7.4-10.4); Monocytes Absolute Auto 0.9 K/mm3 (0.1-0.6); Neutrophils Absolute Auto 4.6 K/mm3 (1.3-6.7); Neutrophils Percent Auto 65.2 % (45.5-73.1); Platelet Count Result 214 k/mm3 (150-375); Red Blood Count 3.24 M/mm3 (4.6-6.20); Red Cell Distribution Width 13.6 % (11.5-14.5); White Blood Count 7.1 K/mm3 (4.5-10.0)
[2024-06-16 05:32] LABS: Alanine Aminotransferase 23 U/L (6-50); Albumin Level 2.6 g/dL (3.5-5.1); Alkaline Phosphatase 88 U/L (38-126); Anion Gap 11 mmol/L (4-12); Aspartate Amino Transferase 36 U/L (17-59); Bilirubin,Total 0.5 mg/dL (0.2-1.3); Blood Urea Nitrogen 69 mg/dL (9-20); Calcium 7.9 mg/dL (8.4-10.2); Carbon Dioxide 17 mmol/L (22-30); Chloride 104 mmol/L (98-107); Estimated CRCL calculation 12 ml/min; Estimated Glomerular Filt Rate 8; Glucose 108 mg/dL (65-110); Magnesium 2.2 mg/dL (1.6-2.3); Sodium 132 mmol/L (137-145)
[2024-06-16 05:36] LABS: Platelet Estimate Adequate (Adequate)
[2024-06-16 05:37] LABS: Anisocytosis 1+; Microcytosis 1+ (NORMAL); Ovalocytes 1+; Schistocytes None Seen
[2024-06-16 05:49] LABS: Troponin I 0.107 ng/mL (0.000-0.034)
[2024-06-16 07:53] LABS: Glucose Point of Care 96 mg/dl (65-105)
[2024-06-16] MEDS: ATORVASTATIN 40 MG TABLET 80 MG PO (08:53)
[2024-06-16] MEDS: ASPIRIN 81 MG CHEWABLE TABLET PO (08:53)
[2024-06-16] MEDS: MAGNESIUM OXIDE 400 MG TABLET PO (08:53)
[2024-06-16] MEDS: MULTIVITAMINS THERAPEUTIC TAB (*BKC) 1 TABLET PO (08:53)
[2024-06-16] MEDS: BUMETANIDE 1 MG TABLET 2 MG PO (08:53)
[2024-06-16] MEDS: hydrALAZINE HCL 25 MG TABLET 50 MG PO ×2 (08:53→21:22)
[2024-06-16] MEDS: amLODIPine BESYLATE 5 MG TABLET PO ×2 (08:53→21:22)
[2024-06-16] MEDS: EZETIMIBE 10 MG TABLET PO (08:54)
[2024-06-16] MEDS: ASCORBIC ACID 500 MG TABLET PO (08:54)
[2024-06-16] MEDS: GLIMEPIRIDE 2 MG TABLET PO (08:54)
--- NOTE | 2024-06-16 10:46 | PM.IMPN ---
Progress Note: A&P Assessment and Plan (1) CKD (chronic kidney disease): Qualifiers: Chronic kidney disease stage: stage 3 (moderate) Chronic kidney disease stage 3 subtype: stage 3b (GFR 30-44) Qualified Code(s): N18.32 - Chronic kidney disease, stage 3b Code(s): N18.9 - Chronic kidney disease, unspecified Status: Acute Assessment and Plan: - creatinine 7.2 and GFR 8, previously 6.26 and 9 on 05/26/2024 - hx of CKD stage 5 to start dialysis today per nephrology nephrology on board (2) Elevated troponin: Code(s): R79.89 - Other specified abnormal findings of blood chemistry Status: Acute Assessment and Plan: - EKG showed atrial flutter with slow ventricular response, HR in high 40s and 50s - CXR: Very small bilateral pleural effusions - Troponin: 0.089 -> 0.080, 6 hour pending - BNP 06883 - most recent echo (2021): Normal systolic function, EF estimated EF 50-55%. See report for details. - suspect elevation in troponin likely from worsening kidney function - telemetry monitoring (3) Diabetes mellitus type 2, uncontrolled: Qualifiers: Glycemic state: with hyperglycemia Qualified Code(s): E11.65 - Type 2 diabetes mellitus with hyperglycemia Code(s): E11.65 - Type 2 diabetes mellitus with hyperglycemia Status: Acute Assessment and Plan: - hypoglycemia protocol - POC blood glucose ACHS - home medication: Glimepiride 2 mg daily which is on hold - correct regimen ordered - low dose TIDWM, based of TDD - A1C 10% on 08/17/2023, update (4) Essential hypertension: Code(s): I10 - Essential (primary) hypertension Status: Acute Assessment and Plan: - improving - continue home medications: Amlodipine 5 mg daily, metoprolol XL 50 HS. - continue adjusting with clinical course - monitor Plan Diet: renal/dialysis GI Prophylaxis: Not currently indicated DVT Prophylaxis: Hold Eliquis (possible procedure), on Heparin Lines: Peripheral Code Status: Full code Subjective Date/time seen: 06/16/24 10:46 Interval history: Patient comfortable at bedside this morning, and for dialysis catheter placement and dialysis today Review of Systems Review of Systems: All systems reviewed & are unremarkable except as noted in HPI and below Exam Narrative: General: alert and comfortable Eyes: EOMI, PERRLA ENNT External ears normal, Neck is supple, no masses, Respiratory systems: Clear to auscultation Cardiovascular S1, S2, normal rhythm, no murmur, rub, or gallop; no thrill or palpable murmurs on palpation. Gastrointestinal: soft, non-tender, and non-distended abdomen with no masses; BS present Skin: no rash, lesions, ulcerations, subcutaneous nodules or induration Musculoskeletal: bilateral lower extremities edema Neurologic: Alert and oriented x3, non focal Mental Status Exam: normal affect Const: General: comfortable and no acute distress Other: , male, nontoxic appearance, elderly HENMT: Face/Nose/Sinus: Normal nares present Mouth: Yes moist mucous membranes Eyes: Sclera: sclerae normal Pupils: Equal, round and reactive pupils present EOM: EOMs intact bilaterally Other: Exotropia on right Resp: Effort & Inspection: normal respiratory effort Auscultation: clear to auscultation bilaterally Cardio: Rate: bradycardic (40-50) Rhythm: regular rhythm Other: No murmur or rub. GI: Other: Abdomen soft, nondistended, nontender. Skin: General skin exam: normal color and no rashes or lesions noted Wounds: no wounds Neuro: Cranial nerves: Yes Equal, round and reactive pupils present Speech: normal speech Motor exam (neuro): 5/5 motor strength present throughout Sensory Exam: normal sensation Other: A&O x4 Extrem: Other: 2 to 3+ pitting edema to bilateral lower extremities, symmetric Psych: Mental Status: mental status grossly nor
[2024-06-16 11:55] LABS: Glucose Point of Care 144 mg/dl (65-105)
--- NOTE | 2024-06-16 14:35 | PC.NURSE ---
Patient left at 1420 for scheduled tunneled cath procedure. Patient left via bed accompanied by surgery staff.
[2024-06-16] MEDS: SODIUM CHLORIDE 0.9% IV 500 ML 30 ML IV CONT (15:00)
--- NOTE | 2024-06-16 15:06 | WPDANESEPPF ---
Anes - Initial Pre Proc Eval Procedure: Operation Date: 06/16/24 15:30 Proposed Procedures p Insertion Tunneled Dialysis Catheter Under Fluoroscopy - Navjot Kelsey MD Date/Time: 06/16/24 15:06 Surgeon: Gurmeet Mittal MD Pre Op Diagnosis: generalized weakness,renal failure Patient Data Age: 69 Gender: M Height: 1.88 m Weight: 123 kg Last Vital Signs Temp 36.6 C 06/16/24 11:27 Pulse 62 06/16/24 14:00 Resp 20 06/16/24 11:27 BP 141/66 H 06/16/24 11:27 Pulse Ox 100 06/16/24 11:27 O2 Del Method Room Air 06/16/24 12:00 Allergies Allergy/AdvReac Type Severity Reaction Status Date / Time Sulfa (Sulfonamide Allergy Unknown Rash Verified 05/30/24 13:13 Antibiotics) Home Medications Medication Instructions Recorded Confirmed Type aspirin 81 mg tablet 81 mg PO DAILY 08/30/22 06/13/24 History ezetimibe 10 mg tablet 10 mg PO DAILY 08/30/22 06/13/24 History magnesium 200 mg tablet 400 mg PO DAILY 08/30/22 06/13/24 History multivitamin (Daily Multi-Vitamin 1 tablet PO DAILY 08/30/22 06/13/24 History tablet) atorvastatin 80 mg tablet 80 mg PO DAILY 09/15/22 06/13/24 History blood-glucose sensor (MeinProspektStyle #13 ea 10/16/22 06/14/24 Rx Harshil 3 Sensor device) flash glucose scanning reader #1 ea 10/16/22 06/14/24 Rx (FreeStyle Harshil 2 [place]) glimepiride 4 mg tablet 2 mg PO DAILY #45 tabs 12/26/23 06/13/24 Rx apixaban 5 mg tablet (Eliquis) 5 mg PO BID #60 tabs 01/25/24 06/13/24 Rx metoprolol succinate 50 mg See Rx Instructions .Route 03/24/24 06/13/24 Rx tablet,extended release 24 hr .COMPLEX #180 tabs amlodipine 5 mg tablet 5 mg PO DAILY #90 tabs 06/10/24 06/13/24 Rx ascorbic acid (vitamin C) 500 mg 500 mg PO DAILY 06/13/24 06/13/24 History tablet,extended release Laboratory Tests 06/15/24 06/15/24 06/16/24 15:58 20:01 04:49 WBC 7.1 K/mm3 (4.5-10.0) RBC 3.24 L M/mm3 (4.6-6.20) Hgb 10.5 L g/dL (14.0-18.0) Hct 32.9 L % (42.0-52.0) MCV 101.5 H fl (80-100) MCH 32.4 pg (26-34) MCHC 31.9 L g/dl (32-36) RDW 13.6 % (11.5-14.5) Plt Count 214 k/mm3 (150-375) MPV 11.3 H fl (7.4-10.4) Immature Gran % (Auto) 0.4 % (0-0.5) Neut % (Auto) 65.2 % (45.5-73.1) Lymph % (Auto) 16.6 L % (18.3-44.2) Jackson % (Auto) 12.0 H % (2.6-8.5) Eos % (Auto) 4.8 H % (0-4.4) Baso % (Auto) 1.0 % (0.2-1.2) Lymph # (Auto) 1.18 K/mm3 (0.9-3.2) Jackson # (Auto) 0.9 H K/mm3 (0.1-0.6) Eos # (Auto) 0.3 K/mm3 (0-0.3) Baso # (Auto) 0.1 K/mm3 (0.0-0.1) Abs Immat Gran (auto) 0.03 K/mm3 (0.00-0.031) Absolute Neuts (auto) 4.6 K/mm3 (1.3-6.7) Absolute Nucleated RBC 0.000 K/mm3 (0.0-0.012) Nucleated RBC % 0.0 % (0.0-0.2) Platelet Estimate Adequate (Adequate) % Immature Plt Fraction 3.7 % (0.9-11.2) Anisocytosis 1+ Microcytosis 1+ (NORMAL) Ovalocytes 1+ Schistocytes None seen Sodium 132 L mmol/L (137-145) Potassium 4.0 mmol/L (3.4-5.0) Chloride 104 mmol/L (98-107) Carbon Dioxide 17 L mmol/L (22-30) Anion Gap 11 mmol/L (4-12) BUN 69 H mg/dL (9-20) Creatinine 7.10 H mg/dL (0.7-1.3) Estim Creat Clear Calc 12 ml/min Estimated GFR 8 L (59 - ) Glucose 108 mg/dL (65-110) POC Capillary Glucose 211 H mg/dl 191 H mg/dl (65-105) (65-105) Calcium 7.9 L mg/dL (8.4-10.2) Phosphorus 6.0 H mg/dL (2.5-4.5) Magnesium 2.2 mg/dL (1.6-2.3) Total Bilirubin 0.5 mg/dL (0.2-1.3) AST 36 U/L (17-59) ALT 23 U/L (6-50) Alkaline Phosphatase 88 U/L (38-126) Troponin I 0.107 H*
[2024-06-16 15:20] LABS: Glucose Point of Care 129 mg/dl (65-105)
--- NOTE | 2024-06-16 15:55 | WPDHPUPDATE1 ---
History and Physical Update Update Date/Time: 06/16/24 15:55 History and Physical has been reviewed, including an updated exam of the patient. There are NO changes in the patient's condition. Risks, benefits, and alternatives have been discussed and questions answered. Patient agrees to proceed with procedure.
[2024-06-16] MEDS: ceFAZolin 3 GM/D5W 100 ML 100 ML IVPB (16:08)
[2024-06-16] MEDS: HEPARIN SODIUM 5,000 UNITS/ML VIAL 5000 UNITS SUB-Q (16:38)
[2024-06-16] MEDS: HEPARIN SODIUM, PORCINE 10,000 UNITS/10 ML VIAL 10000 UNITS IRRIGATION (16:38)
[2024-06-16] MEDS: HEPARIN SODIUM 1,000 UNITS/ML VIAL 5000 UNITS (16:40)
[2024-06-16] MEDS: LIDO 1%/EPINEPHRINE 1:100,000 20 ML VIAL 30 ML INFILTRATE (16:51)
--- NOTE | 2024-06-16 17:18 | P.OP_ITS ---
Procedure Note - Detailed Date of Procedure 06/16/24 Pre-op Diagnosis End-stage renal disease, inadequate venous access Post-op Diagnosis Same Procedure Performed Placement right internal jugular tunneled dura flow central venous catheter using ultrasound and under fluoroscopy Surgeon Navjot Kelsey MD Anesthesia General (G IV S) and Local Indications Patient is in need of hemodialysis for worsening, stage 5, chronic renal failure. He is taken to surgery now for placement of tunneled dialysis catheter vascular access Findings Catheter tip in the distal SVC right atrial junction Description of Procedure Patient was taken to surgery and placed in the supine position. IV sedation was administered. The right neck and right upper chest were prepped and draped. Ultrasound was used and the right internal jugular vein was located. Local anesthesia was infiltrated over the vein. A single puncture was used and, under ultrasound guidance, the right internal jugular vein was cannulated. The guidewire passed readily through the vein and into the SVC. We then used fluoroscopy to see the location of the guidewire. I then measured the distance in the internal jugular vein the catheter would need to pass as well as the general course of the dura flow catheter as it was tunneled from the upper chest. Counter incisions were marked on the skin. Local anesthesia was infiltrated into the area of each counter incision. Incisions were made. An incision was also made at the exit point of the guidewire. A 36 [place] dual lumen dura flow catheter was then tunneled from the chest incision through each counter incision and eventually out the same incision as the guidewire was exiting. Under fluoroscopy, I then used serial dilators over the guidewire. Finally the largest I dilator with sheath was passed passed over the guidewire again under fluoroscopy. The position of the sheath looked good. We removed the guidewire and the introducer. There was quite a bit of back bleeding but the catheter was then threaded into the sleeve and down into the superior vena cava. The sleeve was then removed. The path of the catheter was freshened and refined using a forceps. Fluoroscopy was brought back into the field and the curve as well as the course of the catheter appeared to be in very good position. The tip of the catheter was in the distal SVC, right atrial junction. Both ports aspirated blood easily and flushed easily with heparin. Final flush was done through each port. Caps were placed on each port. Each of the counter incisions was then closed with interrupted subcuticular 4-0 Vicryl suture. The incision where the catheter exited was also closed with a subcuticular interrupted 4-0 Vicryl suture. The catheter was sutured to the skin with 4-0 nylon suture. The count heard incisions were dressed with Exofin surgical adhesive. The exit site of the catheter was dressed with gauze and Tegaderm. Patient was awakened and taken to recovery in good condition. Sponge and needle counts were correct x2. Implants 36 cm tunneled dura flow central venous catheter Estimated Blood Loss -30 Urine Output 250 Drains No Packing No Pathology None sent Complications None Condition Stable Disposition PACU [facility] Billing Surgery - Charge Forward: Surgery Billing (Placement right internal jugular tunneled central venous catheter using ultrasound and under fluoroscopy.)
[2024-06-16 17:28] LABS: Glucose Point of Care 137 mg/dl (65-105)
[2024-06-16] MEDS: SODIUM CHLORIDE 0.9% IV 1,000 ML 999 ML IV CONT (17:52)
--- NOTE | 2024-06-16 18:19 | P.PNNP_ITS ---
Progress Note: A&P Assessment and Plan (1) End stage renal disease: Code(s): N18.6 - End stage renal disease Status: Chronic Assessment and Plan: * slow and steady progression over the last several months (since February 2024) * now complicated by symptoms possibly related to uremia (weakness, fatigue, lethargy...etc) * no critical electrolytes but with worsening lower extremity edema as well * scheduled for AVF placement at [facility] with Dr. Ling later this month * initiated on [employer]/dialysis today * s/p tunneled HD catheter earlier today * follow electrolytes, volume status, and clearance (2) Generalized weakness: Code(s): R53.1 - Weakness Status: Acute Assessment and Plan: * suspect this along with fatigue and lethargy are early signs of uremia * noted GFR running less than 10 as well * suspect these symptoms will likely continue to progress without intervention * [employer]/dialysis should theoretically help (3) Essential hypertension: Code(s): I10 - Essential (primary) hypertension Status: Acute Assessment and Plan: * quite elevated on presentation * resumed on home medications * change amlodipine to bid and added oral hydralazine * on PRN IV hydralazine as well * good response to IV diuretics so started on oral diuretics given LE edema * will likely add ALICIA-I/ARB therapy tomorrow * follow trend of hemodynamics (4) Anemia: Code(s): D64.9 - Anemia, unspecified Status: Acute Assessment and Plan: * related to advanced CKD * no need for AJAY at this time * follow trend of H/H (5) Diabetes mellitus type 2, uncontrolled: Qualifiers: Glycemic state: with hyperglycemia Qualified Code(s): E11.65 - Type 2 diabetes mellitus with hyperglycemia Code(s): E11.65 - Type 2 diabetes mellitus with hyperglycemia Status: Acute Assessment and Plan: * follow accu-cheks * glycemic control per hospitalists Will continue to follow. Subjective Date/time seen: 06/16/24 18:19 Interval history: Follow-up for chronic kidney disease. S/P tunneled HD catheter placement earlier this afternoon and tolerated this procedure reasonably well; tolerating first dialysis treatment/session at the time of my visit (seen at 6:10PM); no apparent distress noted; no issues overnight or earlier this morning. Exam Narrative: General: elderly but WD/WN male in NAD Heart: normal S1 and S2; no rub Lungs: clear anteriorly; slightly decreased at bases Abdomen: soft, nontender, nondistended, positive bowel sounds Extremities: no cyanosis or clubbing; 1 - 2+ edema Skin: warm and intact Objective Data Vital Signs Vital Signs: Vital Signs Temp Pulse Resp BP Pulse Ox O2 Del Method O2 Flow Rate 06/16/24 17:40 65 16 154/70 H 97 Room Air 06/16/24 17:25 65 14 150/76 H 96 Room Air 06/16/24 17:10 97.3 F L 65 10 L 131/63 100 Simple Face Mask 8 06/16/24 15:00 98.9 F 66 14 158/80 H 98 Room Air 06/16/24 14:00 62 06/16/24 12:00 Room Air 06/16/24 12:00 66 06/16/24 11:27 97.9 F 57 L 20 141/66 H 100 06/16/24 10:00 67 06/16/24 08:00 Room Air 06/16/24 08:00 47 L 06/16/24 08:54 46 L 06/16/24 07:57 97.0 F L 48 L 20 175/74 H 95 06/16/24 06
--- NOTE | 2024-06-16 18:19 | PM.PNNEP ---
Progress Note: A&P Assessment and Plan (1) End stage renal disease: Code(s): N18.6 - End stage renal disease Status: Chronic Assessment and Plan: slow and steady progression over the last several months (since February 2024) now complicated by symptoms possibly related to uremia (weakness, fatigue, lethargy...etc) no critical electrolytes but with worsening lower extremity edema as well scheduled for AVF placement at [facility] with Dr. Ling later this month initiated on FISH BONING MACHINE FEEDER/dialysis today s/p tunneled HD catheter earlier today follow electrolytes, volume status, and clearance (2) Generalized weakness: Code(s): R53.1 - Weakness Status: Acute Assessment and Plan: suspect this along with fatigue and lethargy are early signs of uremia noted GFR running less than 10 as well suspect these symptoms will likely continue to progress without intervention FISH BONING MACHINE FEEDER/dialysis should theoretically help (3) Essential hypertension: Code(s): I10 - Essential (primary) hypertension Status: Acute Assessment and Plan: quite elevated on presentation resumed on home medications change amlodipine to bid and added oral hydralazine on PRN IV hydralazine as well good response to IV diuretics so started on oral diuretics given LE edema will likely add ALICIA-I/ARB therapy tomorrow follow trend of hemodynamics (4) Anemia: Code(s): D64.9 - Anemia, unspecified Status: Acute Assessment and Plan: related to advanced CKD no need for AJAY at this time follow trend of H/H (5) Diabetes mellitus type 2, uncontrolled: Qualifiers: Glycemic state: with hyperglycemia Qualified Code(s): E11.65 - Type 2 diabetes mellitus with hyperglycemia Code(s): E11.65 - Type 2 diabetes mellitus with hyperglycemia Status: Acute Assessment and Plan: follow accu-cheks glycemic control per hospitalists Will continue to follow. Subjective Date/time seen: 06/16/24 18:19 Interval history: Follow-up for chronic kidney disease. S/P tunneled HD catheter placement earlier this afternoon and tolerated this procedure reasonably well; tolerating first dialysis treatment/session at the time of my visit (seen at 6:10PM); no apparent distress noted; no issues overnight or earlier this morning. Exam Narrative: General: elderly but WD/WN male in NAD Heart: normal S1 and S2; no rub Lungs: clear anteriorly; slightly decreased at bases Abdomen: soft, nontender, nondistended, positive bowel sounds Extremities: no cyanosis or clubbing; 1 - 2+ edema Skin: warm and intact Objective Data Vital Signs Vital Signs: Vital Signs Temp Pulse Resp BP Pulse Ox O2 Del Method O2 Flow Rate 06/16/24 17:40 65 16 154/70 H 97 Room Air 06/16/24 17:25 65 14 150/76 H 96 Room Air 06/16/24 17:10 97.3 F L 65 10 L 131/63 100 Simple Face Mask 8 06/16/24 15:00 98.9 F 66 14 158/80 H 98 Room Air 06/16/24 14:00 62 06/16/24 12:00 Room Air 06/16/24 12:00 66 06/16/24 11:27 97.9 F 57 L 20 141/66 H 100 06/16/24 10:00 67 06/16/24 08:00 Room Air 06/16/24 08:00 47 L 06/16/24 08:54 46 L 06/16/24 07:57 97.0 F L 48 L 20 175/74 H 95 06/16/24 06:00 50 L 06/16/24 04:00 52 L 06/16/24 04:13 97.8 F 84 18 153/67 H 99 06/16/24 04:00 Room Air 06/16/24 02:00 56 L 06/16/24 00:23 98 F 67 20 177/84 H 95 06/16/24 00:00 Room Air 06/16/24 00:00 64 06/15/24 22:00 67 06/15/24 20:00 68 06/15/24 20:00 Room Air 06/15/24 20:00 97.9 F 67 20 212/81 H 99 Intake/Output Intake/Output: Intake & Output 06/13/24 06/14/24 06/15/24 06/16/24 23:59 23:59 23:59 23:59 Intake Total 910 791 5128 165 Output Total 5691 7766 0145 5 [facility] -1585 - Meds/Results Medications: Active Med
[2024-06-16 21:21] LABS: Glucose Point of Care 223 mg/dl (65-105)
[2024-06-17] VITALS (35 sets, daily range): BP systolic 160–194; BP diastolic 59–104; PULSE 65–81; RESP 16–20; TEMP 36–37; O2SAT 97–100
[2024-06-17] MEDS: ACETAMINOPHEN 500 MG TABLET PO (00:12)
[2024-06-17 05:17] LABS: Basophils Absolute Auto 0.1 K/mm3 (0.0-0.1); Basophils Percent Auto 0.8 % (0.2-1.2); Eosinophils Absolute Auto 0.2 K/mm3 (0-0.3); Hematocrit 31.9 % (42.0-52.0); Hemoglobin 10.5 g/dL (14.0-18.0); Immature Granulocyte Absolute 0.03 K/mm3 (0.00-0.031); Immature Granulocyte Percent A 0.4 % (0-0.5); Lymphocytes Absolute Auto 1.03 K/mm3 (0.9-3.2); Lymphocytes Percent Auto 13.6 % (18.3-44.2); Mean Corpuscular HGB Conc 32.9 g/dl (32-36); Mean Corpuscular Hemoglobin 32.6 pg (26-34); Mean Corpuscular Volume 99.1 fl (80-100); Mean Platelet Volume 10.8 fl (7.4-10.4); Monocytes Absolute Auto 0.9 K/mm3 (0.1-0.6); Monocytes Percent Auto 12.3 % (2.6-8.5); Neutrophils Absolute Auto 5.3 K/mm3 (1.3-6.7); Neutrophils Percent Auto 69.9 % (45.5-73.1); Platelet Count Result 227 k/mm3 (150-375); Red Blood Count 3.22 M/mm3 (4.6-6.20); Red Cell Distribution Width 13.5 % (11.5-14.5); White Blood Count 7.6 K/mm3 (4.5-10.0)
[2024-06-17 05:34] LABS: Alanine Aminotransferase 21 U/L (6-50); Albumin Level 3.1 g/dL (3.5-5.1); Alkaline Phosphatase 101 U/L (38-126); Anion Gap 8 mmol/L (4-12); Aspartate Amino Transferase 40 U/L (17-59); Bilirubin,Total 0.4 mg/dL (0.2-1.3); Blood Urea Nitrogen 49 mg/dL (9-20); Calcium 7.7 mg/dL (8.4-10.2); Carbon Dioxide 25 mmol/L (22-30); Chloride 101 mmol/L (98-107); Estimated CRCL calculation 16 ml/min; Estimated Glomerular Filt Rate 11; Glucose 169 mg/dL (65-110); Magnesium 2.2 mg/dL (1.6-2.3); Potassium 3.7 mmol/L (3.4-5.0); Sodium 134 mmol/L (137-145)
[2024-06-17 06:48] LABS: Glucose Point of Care 151 mg/dl (65-105)
--- NOTE | 2024-06-17 08:50 | P.PNAN_ITS ---
Anes - Prog Note Post-Op Date/Time: 06/17/24 08:50 Cardiovascular status: normal Respiratory status: normal Airway patency: baseline Mental status: baseline Post-Op hydration status: normal Vital Signs: Last Vital Signs Temp 36.9 C 06/17/24 07:54 Pulse 67 06/17/24 07:54 Resp 16 06/17/24 07:54 BP 165/81 H 06/17/24 07:54 Pulse Ox 100 06/17/24 07:54 O2 Del Method Room Air 06/17/24 04:00 O2 Flow Rate 8 06/16/24 17:10 FiO2 100 06/17/24 07:54 Pain Score (VAS): 0 I/O: Intake & Output 06/16/24 06/17/24 06/17/24 23:59 07:59 15:59 Intake Total 165 550 120 Output Total 750 Balance -585 550 120 Laboratory Tests 06/17/24 05:08 06/17/24 05:08 06/16/24 06/16/24 06/16/24 11:25 15:17 17:26 WBC RBC Hgb Hct MCV MCH MCHC RDW Plt Count MPV Immature Gran % (Auto) Neut % (Auto) Lymph % (Auto) [place] % (Auto) Eos % (Auto) Baso % (Auto) Lymph # (Auto) [place] # (Auto) Eos # (Auto) Baso # (Auto) Abs Immat Gran (auto) Absolute Neuts (auto) Absolute Nucleated RBC Nucleated RBC % Sodium Potassium Chloride Carbon Dioxide Anion Gap BUN Creatinine Estim Creat Clear Calc Estimated GFR Glucose POC Capillary Glucose 144 H 129 H 137 H Calcium Magnesium Total Bilirubin AST ALT Alkaline Phosphatase Total Protein Albumin 06/16/24 06/17/24 06/17/24 21:17 05:08 06:42 WBC 7.6 RBC 3.22 L Hgb 10.5 L Hct 31.9 L MCV 99.1 MCH 32.6 MCHC 32.9 RDW 13.5 Plt Count 227 MPV 10.8 H Immature Gran % (Auto) 0.4 Neut % (Auto) 69.9 Lymph % (Auto) 13.6 L [place] % (Auto) 12.3 H Eos % (Auto) 3.0 Baso % (Auto) 0.8 Lymph # (Auto) 1.03 [place] # (Auto) 0.9 H Eos # (Auto) 0.2 Baso # (Auto) 0.1 Abs Immat Gran (auto) 0.03 Absolute Neuts (auto) 5.3 Absolute Nucleated RBC 0.000 Nucleated RBC % 0.0 Sodium 134 L Potassium 3.7 Chloride 101 Carbon Dioxide 25 Anion Gap 8 BUN 49 H D Creatinine 5.30 H Estim Creat Clear Calc 16 Estimated GFR 11 L Glucose 169 H POC Capillary Glucose 223 H 151 H Calcium 7.7 L Magnesium 2.2 Total Bilirubin 0.4 AST 40 ALT 21 Alkaline Phosphatase 101 Total Protein 6.0 L Albumin 3.1 L Post-procedural complaints: none Patient Feedback: Patient satisfied with
[2024-06-17] MEDS: SODIUM CHLORIDE 0.9% IV 1,000 ML 999 ML IV CONT (09:02)
[2024-06-17] MEDS: HEPARIN SODIUM 1,000 UNITS/ML VIAL 5000 UNITS (09:03)
[2024-06-17] MEDS: EPOETIN ALFA-EPBX 4,000 UNITS/ML VIAL 4000 UNITS IV PUSH (09:05)
[2024-06-17] MEDS: hydrALAZINE HCL 25 MG TABLET 50 MG PO ×2 (09:47→20:12)
[2024-06-17] MEDS: amLODIPine BESYLATE 5 MG TABLET PO ×2 (09:48→20:12)
--- NOTE | 2024-06-17 10:33 | PM.PNNEP ---
Progress Note: A&P Assessment and Plan (1) End stage renal disease: Code(s): N18.6 - End stage renal disease Status: Chronic Assessment and Plan: slow and steady progression over the last several months (since February 2024) now complicated by symptoms possibly related to uremia (weakness, fatigue, lethargy...etc) no critical electrolytes but with worsening lower extremity edema as well scheduled for AVF placement at [facility] with Dr. Ling later this month initiated on FISHER REEF NET/dialysis today s/p tunneled HD catheter earlier today HD yesterday HD today and likely again tomorrow follow electrolytes, volume status, and clearance (2) Generalized weakness: Code(s): R53.1 - Weakness Status: Acute Assessment and Plan: suspect this along with fatigue and lethargy are early signs of uremia noted GFR running less than 10 as well suspect these symptoms will likely continue to progress without intervention FISHER REEF NET/dialysis should theoretically help (3) Essential hypertension: Code(s): I10 - Essential (primary) hypertension Status: Acute Assessment and Plan: quite elevated on presentation resumed on home medications change amlodipine to bid and added oral hydralazine on PRN IV hydralazine as well good response to IV diuretics so started on oral diuretics given LE edema add ALICIA-I/ARB therapy today follow trend of hemodynamics (4) Anemia: Code(s): D64.9 - Anemia, unspecified Status: Acute Assessment and Plan: related to advanced CKD no need for AJAY at this time follow trend of H/H (5) Diabetes mellitus type 2, uncontrolled: Qualifiers: Glycemic state: with hyperglycemia Qualified Code(s): E11.65 - Type 2 diabetes mellitus with hyperglycemia Code(s): E11.65 - Type 2 diabetes mellitus with hyperglycemia Status: Acute Assessment and Plan: follow accu-cheks glycemic control per hospitalists Will continue to follow. Subjective Date/time seen: 06/17/24 10:33 Interval history: Follow-up for chronic kidney disease with progression to end stage renal disease. Tolerated tunneled HD catheter placement and first dialysis treatment yesterday; tolerating dialysis treatment at the time of my visit (seen on HD at 10:20AM); no apparent distress voiced; no issues/events overnight or earlier this morning. Exam Narrative: General: elderly but WD/WN male in NAD Heart: normal S1 and S2; no rub Lungs: clear anteriorly; slightly decreased at bases Abdomen: soft, nontender, nondistended, positive bowel sounds Extremities: no cyanosis or clubbing; 1 - 2+ edema Skin: warm and intact Objective Data Vital Signs Vital Signs: Vital Signs Temp Pulse Resp BP Pulse Ox O2 Del Method O2 Flow Rate 06/17/24 10:30 68 192/87 H 06/17/24 10:00 69 170/93 H 06/17/24 09:30 67 192/104 H 06/17/24 09:00 67 170/83 H 06/17/24 08:01 67 176/83 H 06/17/24 07:54 98.4 F 67 16 165/81 H 100 06/17/24 07:54 06/17/24 07:23 97.5 F L 67 20 167/99 H 98 06/17/24 06:50 97.6 F 67 18 187/81 H 97 06/17/24 04:00 Room Air 06/17/24 04:00 65 06/17/24 03:50 97.9 F 66 18 166/59 H 97 06/17/24 02:00 66 06/17/24 00:44 97.6 F 68 18 185/83 H 98 06/17/24 00:00 Room Air 06/17/24 00:00 70 06/16/24 22:00 66 06/16/24 20:00 Room Air 06/16/24 20:00 66 06/16/24 21:10 97.6 F 68 18 150/71 H 99 06/16/24 20:30 70 203/104 H 06/16/24 20:15 67 213/103 H 06/16/24 20:00 118 H 149/114 H 06/16/24 19:45 80 217/108 H 06/16/24 19:30 67 190/96 H 06/16/24 20:34 97.5 F L 67 18 214/103 H 06/16/24 19:15 67 200/103 H 06/16/24 19:00 68 183/91 H 06/16/24 18:45 67 196/97 H 06/16/24 18:30 69 204/126 H 06/16/24 18:00 67
--- NOTE | 2024-06-17 10:33 | P.PNNP_ITS ---
Progress Note: A&P Assessment and Plan (1) End stage renal disease: Code(s): N18.6 - End stage renal disease Status: Chronic Assessment and Plan: * slow and steady progression over the last several months (since February 2024) * now complicated by symptoms possibly related to uremia (weakness, fatigue, lethargy...etc) * no critical electrolytes but with worsening lower extremity edema as well * scheduled for AVF placement at [facility] with Dr. Ling later this month * initiated on FORESTRY SCIENTIST/dialysis today * s/p tunneled HD catheter earlier today * HD yesterday * HD today and likely again tomorrow * follow electrolytes, volume status, and clearance (2) Generalized weakness: Code(s): R53.1 - Weakness Status: Acute Assessment and Plan: * suspect this along with fatigue and lethargy are early signs of uremia * noted GFR running less than 10 as well * suspect these symptoms will likely continue to progress without intervention * FORESTRY SCIENTIST/dialysis should theoretically help (3) Essential hypertension: Code(s): I10 - Essential (primary) hypertension Status: Acute Assessment and Plan: * quite elevated on presentation * resumed on home medications * change amlodipine to bid and added oral hydralazine * on PRN IV hydralazine as well * good response to IV diuretics so started on oral diuretics given LE edema * add ALICIA-I/ARB therapy today * follow trend of hemodynamics (4) Anemia: Code(s): D64.9 - Anemia, unspecified Status: Acute Assessment and Plan: * related to advanced CKD * no need for AJAY at this time * follow trend of H/H (5) Diabetes mellitus type 2, uncontrolled: Qualifiers: Glycemic state: with hyperglycemia Qualified Code(s): E11.65 - Type 2 diabetes mellitus with hyperglycemia Code(s): E11.65 - Type 2 diabetes mellitus with hyperglycemia Status: Acute Assessment and Plan: * follow accu-cheks * glycemic control per hospitalists Will continue to follow. Subjective Date/time seen: 06/17/24 10:33 Interval history: Follow-up for chronic kidney disease with progression to end stage renal disease. Tolerated tunneled HD catheter placement and first dialysis treatment yesterday; tolerating dialysis treatment at the time of my visit (seen on HD at 10:20AM); no apparent distress voiced; no issues/events overnight or earlier this morning. Exam Narrative: General: elderly but WD/WN male in NAD Heart: normal S1 and S2; no rub Lungs: clear anteriorly; slightly decreased at bases Abdomen: soft, nontender, nondistended, positive bowel sounds Extremities: no cyanosis or clubbing; 1 - 2+ edema Skin: warm and intact Objective Data Vital Signs Vital Signs: Vital Signs Temp Pulse Resp BP Pulse Ox O2 Del Method O2 Flow Rate 06/17/24 10:30 68 192/87 H 06/17/24 10:00 69 170/93 H 06/17/24 09:30 67 192/104 H 06/17/24 09:00 67 170/83 H 06/17/24 08:01 67 176/83 H 06/17/24 07:54 98.4 F 67 16 165/81 H 100 06/17/24 07:54 06/17/24 07:23 97.5 F L 67 20 167/99 H 98 06/17/24 06:50 97.6 F 67 18 187/81 H 97 06/17/24 04:00 Room Air 06/17/24 04:00 65 06/17/24 03:50 97.9 F 66 18 166/59 H 97 06/17/24 02:00 66
[2024-06-17] MEDS: MAGNESIUM OXIDE 400 MG TABLET PO (11:36)
[2024-06-17] MEDS: EZETIMIBE 10 MG TABLET PO (11:37)
[2024-06-17] MEDS: ASPIRIN 81 MG CHEWABLE TABLET PO (11:37)
[2024-06-17] MEDS: BUMETANIDE 1 MG TABLET 2 MG PO (11:37)
[2024-06-17] MEDS: ATORVASTATIN 40 MG TABLET 80 MG PO (11:37)
[2024-06-17] MEDS: ASCORBIC ACID 500 MG TABLET PO (11:37)
[2024-06-17] MEDS: MULTIVITAMINS THERAPEUTIC TAB (*BKC) 1 TABLET PO (11:37)
[2024-06-17] MEDS: METOPROLOL SUCCINATE EXT REL 50 MG TABCR PO (11:38)
[2024-06-17 12:09] LABS: Glucose Point of Care 159 mg/dl (65-105)
--- NOTE | 2024-06-17 13:05 | ECG_ITS ---
Test Date: 2024-06-17 13:33:51 Measurements Intervals [place] Rate: P: [place]: QRS: QRSD: T: QT: QTc: Interpretive Statements ATRIAL FLUTTER/TACHYCARDIA WITH NORMAL VENTRICULAR RESPONSE BORDERLINE ST-T WAVE ABNORMALITY- ANTEROLAT/HIGH LAT LEADS BASELINE WANDER- I, V2-V4 ABNORMAL ECG Electronically Signed On 06-17-2024 15:22:06 CDT by Red De La Rosa D.O.
--- NOTE | 2024-06-17 13:46 | PC.NURSE ---
RN verified with Pt that he is on 50mg Metoprolol ER daily, not BID. RN notified Dr. Worley that patient had a 19 beat of VTach at 1300. Patient asymptomatic. EKG ordered.
--- NOTE | 2024-06-17 14:39 | PM.IMPN ---
Progress Note: A&P Assessment and Plan (1) CKD (chronic kidney disease): Qualifiers: Chronic kidney disease stage: stage 3 (moderate) Chronic kidney disease stage 3 subtype: stage 3b (GFR 30-44) Qualified Code(s): N18.32 - Chronic kidney disease, stage 3b Code(s): N18.9 - Chronic kidney disease, unspecified Status: Acute Assessment and Plan: - creatinine 7.2 and GFR 8, previously 6.26 and 9 on 05/26/2024 - hx of CKD stage 5 Underwent dialysis yesterday and today nephrology on board (2) Elevated troponin: Code(s): R79.89 - Other specified abnormal findings of blood chemistry Status: Acute Assessment and Plan: - 06/17: Tele : Non sustained Vtach , EKG 12 lead ordered - EKG showed atrial flutter with slow ventricular response, HR in high 40s and 50s - CXR: Very small bilateral pleural effusions - Troponin: 0.089 -> 0.080, 6 hour pending - BNP 00294 - most recent echo (2021): Normal systolic function, EF estimated EF 50-55%. See report for details. - suspect elevation in troponin likely from worsening kidney function - telemetry monitoring (3) Diabetes mellitus type 2, uncontrolled: Qualifiers: Glycemic state: with hyperglycemia Qualified Code(s): E11.65 - Type 2 diabetes mellitus with hyperglycemia Code(s): E11.65 - Type 2 diabetes mellitus with hyperglycemia Status: Acute Assessment and Plan: - hypoglycemia protocol - POC blood glucose ACHS - home medication: Glimepiride 2 mg daily which is on hold - correct regimen ordered - low dose TIDWM, based of TDD - A1C 10% on 08/17/2023, update (4) Essential hypertension: Code(s): I10 - Essential (primary) hypertension Status: Acute Assessment and Plan: - improving - continue home medications: Amlodipine 5 mg daily, metoprolol XL 50 HS. - continue adjusting with clinical course - monitor Plan Diet: renal/dialysis GI Prophylaxis: Not currently indicated DVT Prophylaxis: Hold Eliquis (possible procedure), on Heparin Lines: Peripheral Code Status: Full code Subjective Date/time seen: 06/17/24 14:39 Interval history: Patient underwent dialysis yesterday and today without any incident. Pending outpatient dialysis setup. The nurse called about nonsustained V-tach in telemetry for a brief period of time. The electrolyte has been checked including magnesium and phosphorus. Patient is on metoprolol 50 mg q.d.. Review of Systems Review of Systems: All systems reviewed & are unremarkable except as noted in HPI and below Exam Narrative: General: alert and comfortable Eyes: EOMI, PERRLA ENNT External ears normal, Neck is supple, no masses, Respiratory systems: Clear to auscultation Cardiovascular S1, S2, normal rhythm, no murmur, rub, or gallop; no thrill or palpable murmurs on palpation. Gastrointestinal: soft, non-tender, and non-distended abdomen with no masses; BS present Skin: no rash, lesions, ulcerations, subcutaneous nodules or induration Musculoskeletal: bilateral lower extremities edema Neurologic: Alert and oriented x3, non focal Mental Status Exam: normal affect Const: General: comfortable and no acute distress Other: , male, nontoxic appearance, elderly HENMT: Face/Nose/Sinus: Normal nares present Mouth: Yes moist mucous membranes Eyes: Sclera: sclerae normal Pupils: Equal, round and reactive pupils present EOM: EOMs intact bilaterally Other: Exotropia on right Resp: Effort & Inspection: normal respiratory effort Auscultation: clear to auscultation bilaterally Cardio: Rate: bradycardic (40-50) Rhythm: regular rhythm Other: No murmur or rub. GI: Other: Abdomen soft, nondistended, nontender. Skin: General skin exam: normal color and no rashes or lesions noted Wounds: no wounds Neuro: Cranial nerves: Yes Equal, round and reactive pupils present Speech: normal spee
[2024-06-17 16:27] LABS: Alanine Aminotransferase 23 U/L (6-50); Albumin Level 3.5 g/dL (3.5-5.1); Alkaline Phosphatase 121 U/L (38-126); Anion Gap 6 mmol/L (4-12); Aspartate Amino Transferase 46 U/L (17-59); Bilirubin,Total 0.5 mg/dL (0.2-1.3); Blood Urea Nitrogen 27 mg/dL (9-20); Calcium 8.7 mg/dL (8.4-10.2); Carbon Dioxide 26 mmol/L (22-30); Chloride 100 mmol/L (98-107); Estimated CRCL calculation 21 ml/min; Estimated Glomerular Filt Rate 15; Glucose 225 mg/dL (65-110); Magnesium 2.1 mg/dL (1.6-2.3); Phosphorus 3.4 mg/dL (2.5-4.5); Sodium 132 mmol/L (137-145)
[2024-06-17 16:34] LABS: Glucose Point of Care 207 mg/dl (65-105)
[2024-06-17] MEDS: lisinopriL 10 MG TABLET PO (16:44)
[2024-06-17] MEDS: INSULIN ASPART (*BKC) 100 UNITS/ML SUB-Q (16:44)
[2024-06-17 20:32] LABS: Glucose Point of Care 170 mg/dl (65-105)
[2024-06-18] VITALS (29 sets, daily range): BP systolic 138–199; BP diastolic 73–96; PULSE 55–71; RESP 12–20; TEMP 36.4–37.2; O2SAT 96–98
[2024-06-18 04:44] LABS: Hematocrit 31.5 % (42.0-52.0); Hemoglobin 10.1 g/dL (14.0-18.0); Mean Corpuscular HGB Conc 32.1 g/dl (32-36); Mean Corpuscular Hemoglobin 32.3 pg (26-34); Mean Corpuscular Volume 100.6 fl (80-100); Mean Platelet Volume 10.9 fl (7.4-10.4); Platelet Count Result 236 k/mm3 (150-375); Red Blood Count 3.13 M/mm3 (4.6-6.20); Red Cell Distribution Width 13.5 % (11.5-14.5); White Blood Count 7.9 K/mm3 (4.5-10.0)
[2024-06-18 04:57] LABS: Alanine Aminotransferase 20 U/L (6-50); Albumin Level 2.9 g/dL (3.5-5.1); Alkaline Phosphatase 94 U/L (38-126); Anion Gap 9 mmol/L (4-12); Aspartate Amino Transferase 49 U/L (17-59); Bilirubin,Total 0.4 mg/dL (0.2-1.3); Blood Urea Nitrogen 36 mg/dL (9-20); Calcium 8.1 mg/dL (8.4-10.2); Carbon Dioxide 24 mmol/L (22-30); Chloride 100 mmol/L (98-107); Estimated CRCL calculation 19 ml/min; Estimated Glomerular Filt Rate 13; Glucose 153 mg/dL (65-110); Potassium 3.6 mmol/L (3.4-5.0); Sodium 133 mmol/L (137-145)
[2024-06-18] MEDS: ASPIRIN 81 MG CHEWABLE TABLET PO (07:57)
[2024-06-18] MEDS: MULTIVITAMINS THERAPEUTIC TAB (*BKC) 1 TABLET PO (07:58)
[2024-06-18] MEDS: ASCORBIC ACID 500 MG TABLET PO (07:58)
[2024-06-18] MEDS: MAGNESIUM OXIDE 400 MG TABLET PO (07:58)
[2024-06-18] MEDS: ATORVASTATIN 40 MG TABLET 80 MG PO (07:58)
[2024-06-18] MEDS: EZETIMIBE 10 MG TABLET PO (07:58)
[2024-06-18] MEDS: BUMETANIDE 1 MG TABLET 2 MG PO (07:58)
[2024-06-18] MEDS: hydrALAZINE HCL 25 MG TABLET 50 MG PO (07:59)
[2024-06-18] MEDS: METOPROLOL SUCCINATE EXT REL 50 MG TABCR PO (07:59)
[2024-06-18] MEDS: amLODIPine BESYLATE 5 MG TABLET PO (07:59)
[2024-06-18] MEDS: lisinopriL 20 MG TABLET PO (08:00)
--- NOTE | 2024-06-18 08:12 | PC.NURSE ---
Pt to dialysis via bed
[2024-06-18] MEDS: EPOETIN ALFA-EPBX 4,000 UNITS/ML VIAL 4000 UNITS IV PUSH (11:59)
--- NOTE | 2024-06-18 12:01 | PM.PNNEP ---
Progress Note: A&P Assessment and Plan (1) End stage renal disease: Code(s): N18.6 - End stage renal disease Status: Chronic Assessment and Plan: slow and steady progression over the last several months (since February 2024) now complicated by symptoms possibly related to uremia (weakness, fatigue, lethargy...etc) no critical electrolytes but with worsening lower extremity edema as well scheduled for AVF placement at [facility] with Dr. Ling later this month initiated on ANESTHESIA TECH/dialysis today s/p tunneled HD catheter earlier today HD yesterday and day before HD today follow electrolytes, volume status, and clearance (2) Generalized weakness: Code(s): R53.1 - Weakness Status: Acute Assessment and Plan: suspect this along with fatigue and lethargy are early signs of uremia noted GFR running less than 10 as well suspect these symptoms will likely continue to progress without intervention ANESTHESIA TECH/dialysis should theoretically help improve this symptom (3) Essential hypertension: Code(s): I10 - Essential (primary) hypertension Status: Acute Assessment and Plan: quite elevated on presentation resumed on home medications change amlodipine to bid and added oral hydralazine on PRN IV hydralazine as well good response to IV diuretics so started on oral diuretics given LE edema added ALICIA-I/ARB therapy and titrate follow trend of hemodynamics (4) Anemia: Code(s): D64.9 - Anemia, unspecified Status: Acute Assessment and Plan: related to advanced CKD no need for AJAY at this time follow trend of H/H (5) Diabetes mellitus type 2, uncontrolled: Qualifiers: Glycemic state: with hyperglycemia Qualified Code(s): E11.65 - Type 2 diabetes mellitus with hyperglycemia Code(s): E11.65 - Type 2 diabetes mellitus with hyperglycemia Status: Acute Assessment and Plan: follow accu-cheks glycemic control per hospitalists Not opposed to discharge from renal perspective if outpatient dialysis schedule/facility has been finalized. Will continue to follow. Subjective Date/time seen: 06/18/24 12:01 Interval history: Follow-up for chronic kidney disease with progression to end stage renal disease. Tolerating dialysis treatment at the time of my visit (seen on HD at 11:50AM); no apparent distress voiced currently; tolerated dialysis treatments yesterday and day before; overall, feels reasonably well and no other complaints to report. Exam Narrative: General: elderly but WD/WN male in NAD Heart: normal S1 and S2; no rub Lungs: clear anteriorly; slightly decreased at bases Abdomen: soft, nontender, nondistended, positive bowel sounds Extremities: no cyanosis or clubbing; 1 - 2+ edema Skin: no rash Objective Data Vital Signs Vital Signs: Vital Signs Temp Pulse Resp BP Pulse Ox O2 Del Method 06/18/24 11:45 68 163/86 H 06/18/24 11:30 68 146/82 H 06/18/24 11:15 61 199/81 H 06/18/24 11:00 69 182/85 H 06/18/24 10:45 68 150/89 H 06/18/24 10:30 67 180/80 H 06/18/24 10:15 68 169/76 H 06/18/24 10:00 68 138/77 06/18/24 09:45 61 150/78 H 06/18/24 09:30 68 140/81 06/18/24 09:15 61 171/91 H 06/18/24 09:00 68 172/96 H 06/18/24 08:45 61 170/86 H 06/18/24 08:39 61 155/76 H 06/18/24 08:26 98.2 F 55 L 14 161/75 H 06/18/24 08:00 58 L 06/18/24 08:00 Room Air 06/18/24 07:59 65 06/18/24 07:44 99.0 F 71 16 154/77 H 96 06/18/24 06:00 66 06/18/24 04:00 Room Air 06/18/24 04:00 68 06/18/24 05:06 97.6 F 63 20 168/73 H 98 06/18/24 02:00 70 06/18/24 00:00 Room Air 06/18/24 00:00 68 06/18/24 01:33 97.5 F L 67 20 171/88 H 97 06/17/24 22:00 68 06/17/24 20:00 Room Air 06/17/24 20:00 68 06/17/24 19:57 97.8 F 69
--- NOTE | 2024-06-18 12:01 | P.PNNP_ITS ---
Progress Note: A&P Assessment and Plan (1) End stage renal disease: Code(s): N18.6 - End stage renal disease Status: Chronic Assessment and Plan: * slow and steady progression over the last several months (since February 2024) * now complicated by symptoms possibly related to uremia (weakness, fatigue, lethargy...etc) * no critical electrolytes but with worsening lower extremity edema as well * scheduled for AVF placement at [facility] with Dr. Ling later this month * initiated on SECURITY CHIEF MUSEUM/dialysis today * s/p tunneled HD catheter earlier today * HD yesterday and day before * HD today * follow electrolytes, volume status, and clearance (2) Generalized weakness: Code(s): R53.1 - Weakness Status: Acute Assessment and Plan: * suspect this along with fatigue and lethargy are early signs of uremia * noted GFR running less than 10 as well * suspect these symptoms will likely continue to progress without intervention * SECURITY CHIEF MUSEUM/dialysis should theoretically help improve this symptom (3) Essential hypertension: Code(s): I10 - Essential (primary) hypertension Status: Acute Assessment and Plan: * quite elevated on presentation * resumed on home medications * change amlodipine to bid and added oral hydralazine * on PRN IV hydralazine as well * good response to IV diuretics so started on oral diuretics given LE edema * added ALICIA-I/ARB therapy and titrate * follow trend of hemodynamics (4) Anemia: Code(s): D64.9 - Anemia, unspecified Status: Acute Assessment and Plan: * related to advanced CKD * no need for AJAY at this time * follow trend of H/H (5) Diabetes mellitus type 2, uncontrolled: Qualifiers: Glycemic state: with hyperglycemia Qualified Code(s): E11.65 - Type 2 diabetes mellitus with hyperglycemia Code(s): E11.65 - Type 2 diabetes mellitus with hyperglycemia Status: Acute Assessment and Plan: * follow accu-cheks * glycemic control per hospitalists Not opposed to discharge from renal perspective if outpatient dialysis schedule/facility has been finalized. Will continue to follow. Subjective Date/time seen: 06/18/24 12:01 Interval history: Follow-up for chronic kidney disease with progression to end stage renal disease. Tolerating dialysis treatment at the time of my visit (seen on HD at 11:50AM); no apparent distress voiced currently; tolerated dialysis treatments yesterday and day before; overall, feels reasonably well and no other complaints to report. Exam Narrative: General: elderly but WD/WN male in NAD Heart: normal S1 and S2; no rub Lungs: clear anteriorly; slightly decreased at bases Abdomen: soft, nontender, nondistended, positive bowel sounds Extremities: no cyanosis or clubbing; 1 - 2+ edema Skin: no rash Objective Data Vital Signs Vital Signs: Vital Signs Temp Pulse Resp BP Pulse Ox O2 Del Method 06/18/24 11:45 68 163/86 H 06/18/24 11:30 68 146/82 H 06/18/24 11:15 61 199/81 H 06/18/24 11:00 69 182/85 H 06/18/24 10:45 68 150/89 H 06/18/24 10:30 67 180/80 H 06/18/24 10:15 68 169/76 H 06/18/24 10:00 68 138/77 06/18/24 09:45 61 150/78 H 06/18/24 09:30 68 140/81 06/18/24 09:15 61 171/91 H
[2024-06-18] MEDS: HEPARIN SODIUM 1,000 UNITS/ML VIAL 6000 UNITS IV PUSH (12:34)
--- NOTE | 2024-06-18 12:49 | PC.NURSE ---
Pt returned from dialysis via bed. No issues noted
[2024-06-18 13:02] LABS: Glucose Point of Care 138 mg/dl (65-105)
--- NOTE | 2024-06-18 16:49 | PM.DS ---
DS: Admitting Diagnosis Discharge Date 06/18/24 Admitting Diagnosis Generalized weakness, Chronic kidney disease (CKD), Elevated troponin DS: Discharge Diagnosis Discharge Diagnosis (1) CKD (chronic kidney disease): Qualifiers: Chronic kidney disease stage: stage 3 (moderate) Chronic kidney disease stage 3 subtype: stage 3b (GFR 30-44) Qualified Code(s): N18.32 - Chronic kidney disease, stage 3b Code(s): N18.9 - Chronic kidney disease, unspecified Status: Acute Assessment and Plan: - creatinine 7.2 and GFR 8, previously 6.26 and 9 on 05/26/2024 - hx of CKD stage 5 Underwent dialysis yesterday and today nephrology on board (2) Elevated troponin: Code(s): R79.89 - Other specified abnormal findings of blood chemistry Status: Acute Assessment and Plan: - 06/17: Tele : Non sustained Vtach , EKG 12 lead ordered - EKG showed atrial flutter with slow ventricular response, HR in high 40s and 50s - CXR: Very small bilateral pleural effusions - Troponin: 0.089 -> 0.080, 6 hour pending - BNP 36463 - most recent echo (2021): Normal systolic function, EF estimated EF 50-55%. See report for details. - suspect elevation in troponin likely from worsening kidney function - telemetry monitoring (3) Diabetes mellitus type 2, uncontrolled: Qualifiers: Glycemic state: with hyperglycemia Qualified Code(s): E11.65 - Type 2 diabetes mellitus with hyperglycemia Code(s): E11.65 - Type 2 diabetes mellitus with hyperglycemia Status: Acute Assessment and Plan: - hypoglycemia protocol - POC blood glucose ACHS - home medication: Glimepiride 2 mg daily which is on hold - correct regimen ordered - low dose TIDWM, based of TDD - A1C 10% on 08/17/2023, update (4) Essential hypertension: Code(s): I10 - Essential (primary) hypertension Status: Acute Assessment and Plan: - improving - continue home medications: Amlodipine 5 mg daily, metoprolol XL 50 HS. - continue adjusting with clinical course - monitor DS: Summary Hospital Course Hospital Course: 69 y/o M presents here with weakness and fatigue with PMH of aortic stenosis, AFib, CAD, HTN, HLD, CKD, MCKAY intolerant of CPAP, and diabetes. The patient presents here from home for further evaluation of fatigue and weakness. Patient reports onset of fatigue and weakness for the past 1-2 weeks. This is accompanied by chest pain, shortness, palpitations, nausea, vomiting, dizziness, fever, chills, or diarrhea. Endorsing body aches primarily to his BLE. Also reporting some difficulty with word finding over the past week. Family reports they have noticed some intermittent confusion in the past week. Patient also reporting blurred vision in his right eye that is not accompanied by diplopia. Patient denies focal weakness, dysarthria, changes in gait, focal numbness, or difficulty swallowing. Patient has known CKD stage 5. Patient agreed for dialysis.s/p tunneled HD catheter on 06/16/2024. Initiated on [facility]/dialysis Underwent dialysis past 3 days.Scheduled for AVF placement at [facility] with Dr. Ling later this month. Patient glimiperide is discontinued. Patient doesnt want to initiate insulin. So advised monitor his BS consistently and follow up with his PCP and follow up BS. Patient need to follow up with Nephrology and continue his dialysis. Status at Discharge Cognitive/behavioral status at discharge: Stable Time Spent with Patient Time attestation: Total time spent providing and/or coordinating discharge services:45 mins Exam Narrative: General: alert and comfortable Eyes: EOMI, PERRLA ENNT External ears normal, Neck is supple, no masses, Respiratory systems: Clear to auscultation Cardiovascular S1, S2, normal rhythm, no murmur, rub, or gallop; no thrill or palpable murmurs on palpation. Gastrointestinal: soft, non-tender, and non-distended abdomen with no masses; BS present S
== END 2024-06-18 15:39 | disposition home or self-care (01) | DRG 673 ==
LOC: ANHED 12:26 → ANHIMU 15:15
PROVIDERS: Internal Medicine; Internal Medicine Nephrology; Student in an Organized Health Care Education/Training Program; Surgery; Admitting Provider Internal Medicine; Emergency Provider Student in an Organized Health Care Education/Training Program; PCP Family Medicine; Visit Provider General Practice
PROC: 0JH63XZ Insertion of Tunneled Vascular Access Device into Chest Subcutaneous Tissue and Fascia, Percutaneous Approach (ICD-10-PCS; CPT 36908; principal; 2024-06-16 15:30)
DX: I12.0 Hypertensive chronic kidney disease with stage 5 chronic kidney disease or end stage renal disease (principal); N18.6 End stage renal disease; I48.20 Chronic atrial fibrillation, unspecified; I48.92 Unspecified atrial flutter; R53.1 Weakness; E11.22 Type 2 diabetes mellitus with diabetic chronic kidney disease; I25.10 Atherosclerotic heart disease of native coronary artery without angina pectoris; E11.65 Type 2 diabetes mellitus with hyperglycemia; G47.33 Obstructive sleep apnea (adult) (pediatric); E11.42 Type 2 diabetes mellitus with diabetic polyneuropathy; D63.1 Anemia in chronic kidney disease; K57.90 Diverticulosis of intestine, part unspecified, without perforation or abscess without bleeding; R79.89 Other specified abnormal findings of blood chemistry; Z85.828 Personal history of other malignant neoplasm of skin; Z79.01 Long term (current) use of anticoagulants; Z90.3 Acquired absence of stomach [part of]; Z95.2 Presence of prosthetic heart valve; Z87.891 Personal history of nicotine dependence; Z79.82 Long term (current) use of aspirin
CPT/HCPCS: 36415; 70450; 71046; 77001; 80048; 80053; 82948; 83036; 83735; 83880; 84100; 84443; 84484; 85025; 85027; 85055; 85610; 85730; 86704; 86706; 86850; 86900; 86901; 87340; 93005; 96374; 99285; A9270; C1750; C8929; G0257; J0360; J0690; J1644; J1815; J1940; J2704; J3010; J7030; J7040; Q5105; Q9957

== ENCOUNTER 2024-06-21 17:53 | Emergency (ER) | payer MEDICARE, SELFPAY ==
[2024-06-21 18:02] VITALS: BP 145/70; PULSE 67; RESP 16; TEMP 36.6; O2SAT 97
--- NOTE | 2024-06-21 18:15 | PC.NURSE ---
Patient states port was used for dialysis yesterday and there were no issues until bleeding began this evening.
--- NOTE | 2024-06-21 19:22 | PC.NURSE ---
Report received from VIC Hernandez. Assumed care of patient at this time.
[2024-06-21 21:02] VITALS: BP 192/87; PULSE 62; RESP 18; TEMP 36.8; O2SAT 97
--- NOTE | 2024-06-21 21:09 | PC.NURSE ---
VORB to hold off on blood work at this time.
--- NOTE | 2024-06-21 21:34 | ED.GENADULT ---
HPI - General Adult General Chief complaint: Recheck/Abnormal Lab/Rx Stated complaint: dialysis port bleeding Time Seen by Provider: 06/21/24 20:51 History of Present Illness HPI narrative: patient is 69-year-old gentleman presents emergency department with chief complaint of bleeding from dialysis access site. Patient reports that he had a dialysis access placed on Sunday and reports that he had some bleeding today from the site. The patient reports that he had some blood underneath the dressing that was leaking out of the dressing. The patient denies trauma. the patient does report that he is on blood thinners Related Data Home Medications Medication Instructions Recorded Confirmed aspirin 81 mg tablet 81 mg PO DAILY 08/30/22 06/13/24 ezetimibe 10 mg tablet 10 mg PO DAILY 08/30/22 06/13/24 magnesium 200 mg tablet 400 mg PO DAILY 08/30/22 06/13/24 multivitamin (Daily Multi-Vitamin 1 tablet PO DAILY 08/30/22 06/13/24 tablet) atorvastatin 80 mg tablet 80 mg PO DAILY 09/15/22 06/13/24 ascorbic acid (vitamin C) 500 mg 500 mg PO DAILY 06/13/24 06/13/24 tablet,extended release Allergies Allergy/AdvReac Type Severity Reaction Status Date / Time Sulfa (Sulfonamide Allergy Unknown Rash Verified 06/16/24 15:45 Antibiotics) Review of Systems Review of Systems: A 10 system review of systems was completed on the patient and is negative except for what is stated in the HPI. Nursing and ancillary documentation was reviewed. [facility] Past Medical History Medical History Actinic keratosis Aortic stenosis Status post TAVR repeat echo 05/01/2022: Moderate concentric left ventricular hypertrophy, normal global left ventricular systolic function with EF of 60%, basal inferior segment hypokinesis, mitral valve leaflets mildly thickened, mild mitral valve regurgitation, aortic valve not well-visualized peak gradient 23 mean gradient 12 valve area 1.07, no aortic regurgitation, normal appearing aortic valve prosthesis gradients normal for valve type and size, mild pulmonary hypertension with RVSP of 35, mild tricuspid regurgitation, atrial fibrillation, technically difficult study with limited views Atrial fibrillation (~2009) Chronic Basal cell carcinoma (BCC) of face BMI 34.0-34.9,adult CKD (chronic kidney disease) Coronary artery disease Left heart catheterization mild nonobstructive coronary artery disease September 2021 Diabetic peripheral neuropathy Diverticulosis 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 Mixed hyperlipidemia Nonrheumatic aortic (valve) insufficiency Nonrheumatic aortic valve stenosis Normal colonoscopy (~2009) Demonstrating diverticulosis and internal hemorrhoids Obstructive sleep apnea Did not tolerate CPAP Sepsis Type 2 diabetes mellitus Surgical History Surgical History H/O hand surgery H/O inguinal hernia repair (~1979) History of ankle surgery (~1989) History of lumbar surgery (~1985) History of sleeve gastrectomy (04/2016) Status post transcatheter aortic valve replacement (TAVR) using bioprosthesis (~10/27/21) 29 mm [place] Maged 3 ultra Family History Family History Sibling Family history of cardiovascular disease Diabetes mellitus Family history of malignant neoplasm of breast in first degree relative Family history of coronary artery disease Carcinoma of colon Hypertension Cerebrovascular accident Father Family history of malignant neoplasm Tobacco abuse Lung cancer Grandparent Family history of kidney disease Mother Rheumatoid arthritis Hypertension Sibling Tobacco abuse Cerebrovascular accident Other Family history of congestive heart failure Family history of obesity Social History Social His
== END 2024-06-21 23:13 | disposition home or self-care (01) ==
PROVIDERS: Emergency Provider Emergency Medicine; PCP Family Medicine
DX: T82.838A Hemorrhage due to vascular prosthetic devices, implants and grafts, initial encounter (principal); Y71.1 Therapeutic (nonsurgical) and rehabilitative cardiovascular devices associated with adverse incidents; I12.0 Hypertensive chronic kidney disease with stage 5 chronic kidney disease or end stage renal disease; E11.22 Type 2 diabetes mellitus with diabetic chronic kidney disease; N18.6 End stage renal disease; Z99.2 Dependence on renal dialysis; I48.91 Unspecified atrial fibrillation; I25.10 Atherosclerotic heart disease of native coronary artery without angina pectoris; Z79.01 Long term (current) use of anticoagulants; G47.30 Sleep apnea, unspecified; E78.5 Hyperlipidemia, unspecified; I35.2 Nonrheumatic aortic (valve) stenosis with insufficiency
CPT/HCPCS: 99283

== ENCOUNTER 2025-07-23 12:45 | Outpatient (CLI) | payer MEDICARE, SELFPAY ==
--- NOTE | ~2025-07-23 | XR_ITS ---
EXAMINATION: XR foot RT min 3V, 07/23/2025 13:05 CDT HISTORY: great toe injury X 2 DAYS, SWOLLEN, BRUISING COMPARISON: No comparisons available. Findings: Comminuted appearing fracture of the distal aspect proximal phalanx first digit Moderate degenerative changes of the first metatarsal phalangeal joint Soft tissues unremarkable. Impression: First digit fracture Reviewed, dictated and finalized at location P. Impression: First digit fracture
--- OUTSIDE RECORDS SUMMARY | 2025-07-23 14:22 | XMS_ITS | Clinical Summary ---
Author [place] [facility] [place] [address] Address [address] [place] [address] Care Team Providers Care Harness Inspector Name Role Phone Gabriel Ngo MD Unavailable [phone] Gabriel Ngo MD Unavailable [phone] Diogenes Peralta MD Unavailable Gabriel Ngo MD Primary Care Provider [phone] Allergies Active Allergy Reactions Criticality Noted Date Comments Sulfa (Sulfonamide Antibiotics) Rash,Hives Medium 06/08 Medications multivitamin-m inerals-lutein (CENTRUM SILVER) tablet take 1 tablet by oral route every day 0 04/24/20 12 Active Additional Information Patient not taking.Informant: Self, Reported on 09/11/2024 aspirin 81 mg tablet take 1 tablet by oral route every day 0 02/08/20 16 Active Additional Information Patient taking differently:81 mgoral Nightly, Indications: prevention of thrombosis, Informant: Self, Reported on 09/11/2024 ascorbic acid, vitamin C, (VITAMIN C) 500 mg capsule, extended release CR capsule take 1 by Oral route once 0 0 10/04/20 16 Active Additional Information Patient taking differently:500 mgoral Daily (early AM), Indications: Vitamin C Deficiency, Informant: Self, Reported on 09/11/2024 glimepiride (AMARYL) 4 mg tabletIndicati ons:type 2 diabetes mellitus Take 0.5 tablets (2 mg total) by mouth daily before breakfast Active acetaminophen ER (TYLENOL) 650 mg 8 hr tabletIndicati ons:Pain Take 2 tablets (1,300 mg total) by mouth every 8 (eight) hours as needed for pain Active amLODIPine (NORVASC) 5 mg tabletIndicati ons:hypertensi on Take 1 tablet (5 mg total) by mouth manager in training before breakfast 03/07/20 Active Jardiance 10 mg tablet 03/01/20 Active magnesium oxide 400 mg magnesium capsuleIndicat ions:hypomagne semia Take 400 mg by mouth nightly Active metoprolol XL (TOPROL-XL) 50 mg extended release tabletIndicati ons:hypertensi on Take 1 tablet (50 mg total) by mouth manager in training before breakfast Active lisinopriL (PRINIVIL,ZEST RIL) 20 mg tabletIndicati ons:hypertensi on Take 1 tablet (20 mg total) by mouth 2 (two) times a day Active hydrALAZINE (APRESOLINE) 25 mg tabletIndicati ons:hypertensi on Take 2 tablets (50 mg total) by mouth 2 (two) times a day Active bumetanide (BUMEX) 2 mg tabletIndicati ons:hypertensi on Take 1 tablet (2 mg total) by mouth daily Active HYDROcodone-ac etaminophen (NORCO) 5-325 mg per tabletIndicati ons:Pain Take 1-2 tablets by mouth every 4 (four) hours as needed for pain 20 tablet 07/07/20 Active Additional Information Patient not taking.Reported on 09/11/2024 apixaban (Eliquis) 5 mg tablet Take 1 tablet (5 mg total) by mouth 2 (two) times a day 180 tablet 3 07/23/20 24 Active OneTouch Ultra Test strip 06/19/20 Active gabapentin (NEURONTIN) 100 mg capsule Take 1 capsule (100 mg total) by mouth nightly 08/27/20 24 Active magnesium hydroxide 400 mg (170 mg magnesium) tablet,chewabl e Active multivitamin tablet Active atorvastatin (LIPITOR) 80 mg tablet Take 1 tablet (80 mg total) by mouth daily 90 tablet 2 09/18/20 24 Active ezetimibe (ZETIA) 10 mg tablet TAKE 1 TABLET(10 MG) BY MOUTH DAILY 90 tablet 07/17/20 25 Active ezetimibe (ZETIA) 10 mg tablet TAKE 1 TABLET(10 MG) BY MOUTH DAILY 90 tablet 2 12/11 025 Discontinued Active Problems Problem Noted Date Diagnosed Date Pre-transplant evaluation for kidney transplant 09/11/2024 End stage renal disease 07/05/2024 Chronic kidney disease (CKD), stage V 06/04/2024 Flexor tenosynovitis of finger 07/31/2023 Assessment & Plan (08/02/2023 5:28 PM CDT): Leukocytosis 12.6, CRP 258 / ESR 30, XR L hand with soft tissue swelling without acute osseous abnormality and superficial lesion noted to be wart per patient, without foreign body. Photo in Epic (Dr. Robison 07/31/23 note). Finger is held is subtle flexion, it is uniformly swollen, he is able to perform flexion and extension, it is uniformly tender to palpitation. - seen in ED by PRS - npo - hold dvt ppx - operative LUE I&D, possible carpal tunnel release - IV Vanc/Cefe (07/31 0600 - c), change to levaquin flagyl per discussion with ID - crcl <30 on admit, cefe 1-2g q24 - crcl <30 on admit, rec'd vanc x1, random vanc level 08/01 0530 - Elevate LUE Tenosynovitis of left hand 07/31/2023 Non-insulin dependent type 2 diabetes mellitus 1 Assessment & Plan (07/31/2023 11:09 AM CDT): - hold glimepiride 4, empagliflozin 10 - ssi - A1c, lipid panel Klmqy-og-[id number] kidney injury 07/31/2023 Assessment & Plan (08/02/2023 5:42 PM CDT): Likely acute on chronic GURWINDER with BUN:Cre 43:3.36 up from baseline of ~25:1.70 CKD 3b. - urine lytes, cre, consistent with intrinsic renal disease - 1L LR now --Check PVR --Large protein in urine, nephrotic level --Follow up with nephrology Obesity 07/31/2023 Assessment & Plan (07/31/2023 11:03 AM CDT): Complicates all aspects of care. Predisposes to MCKAY and metabolic syndrome. As little as 3% weight loss can have health benefit. And 5% weight loss can significantly reduce comorbidities. 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 06/09 Coronary artery disease invo lving sycuan coronary artery of sycuan heart without angina pectoris 09/13/2021 Hypertension associated with diabetes 06/24/2021 Assessment & Plan (07/31/2023 10:27 AM CDT): - hold presurgically amlodipine 5 Aortic stenosis 10/17/2017 Aortic regurgitation 10/17/2017 Chronic atrial fibrillation 10/17/2017 Assessment & Plan (07/31/2023 10:26 AM CDT): - hold presurgically metoprolol XL 50mg BID Chronic anticoagulation 10/17/2017 Mixed diabetic hyperlipidemi a associated with type 2 diabetes mellitus ([facility]) 10/17/2017 History of bypass of stomach 10/04/2016 Overview (01/11/2017): Status post gastric bypass for obesity History of transcatheter aortic valve replacemen t (TAVR) Assessment & Plan (07/31/2023 10:59 AM CDT): Bioprosthetic valve 10/27/21. - hold presurgically apixaban / ASA Resolved Problems Problem Noted Date Diagnosed Date Resolved Date Hyperlipidemia 10/04/2016 01/04/2024 Overview (01/11/2017): Dyslipidemia Assessment & Plan (07/31/2023 10:31 AM CDT): - cont atorvastatin 80, ezetimebe 10 Immunizations Immunization Administration Dates Next Due Tdap 07/31/2023 Surgical History Surgery Date Site/Laterality Comments BARIATRIC SURGERY 10/08/2015 - 10/07/2016 gastric sleeve PILONIDAL CYSTECTOMY 10/08/1974 - 10/07/1975 SHOULDER SURGERY 10/08/1977 - 10/07/1978 Right Putti-Alexey procedure HERNIA REPAIR 10/08/1977 - 10/07/1978 CARDIAC CATHETERIZATION 10/08/2021 - 10/07/2022 LUMBAR DISCECTOMY 10/08/1985 - 10/07/1986 L5-L9 OTHER SURGICAL HISTORY 10/27/2021 TAVR - PERCUTANEOUS FEMORAL Medical History Medical History Date Comments Hypertension Hypertension Adiposity Obesity Atrial fibrillation (HCC) Hyperlipidemia Aortic stenosis Type 2 diabetes mellitus Covid 04/2021 Sleep apnea gastric sleeve a fter diagnosis, no cpap Delayed emergence from gener al anesthesia Arthritis Fractured elbow right X 2 Dislocated shoulder right X 9 Lazy eye Celiac disease Family History Medical History Relation Name Comments Cancer Father Hypertension Mother Stroke Mother Relation Name Status Comments Father Mother Social History Tobacco Use Types Packs/Day Years Used Date Smoking Tobacco: Former Cigarettes 2 29 1 970 - 1998 Smokeless Tobacco: Never Tobacco Cessation:Counseling Given: Not Answered Alcohol Use Standard Drinks/Week Comments Yes 0 (1 standard drink = 0.6 oz pur e alcohol) [employer] Util[employer] Answer Date Recorded In the past 12 months has [employer], gas, oil, or [employer] threatened to shut off services in your home? No 09/23/2024 Social Connection and Isolation Panel Answer Date Recorded In a typical week, how many times do you talk on the phone with family, friends, or neighbors? More than three times a week 09/23/2024 How often do you get togethe r with friends or relatives? More than three times a week 09/23/2024 How often do you attend [facility] or anabaptism services? Never 09/23/2024 Do you belong to any clubs o r organizations such as oriental orthodox groups, unions, fraternal or athletic groups, or school groups? No 09/23/2024 How often do you attend meet ings of the clubs or organizations you belong to? Never 09/23/2024 Are you , , di vorced, , never , or living with a partner? 09/23/2024 AUDIT-C Answer Date Recorded Q1: How often do you have a drink containing alcohol? Never 06/16/2024 Q2: How many drinks containi ng alcohol do you have on a typical day when you are drinking? Patient does not drink Q3: How often do you have si x or more drinks on one occasion? Never 06/16/2024 Overall Financial Resource Strain (CARDIA) Answe r Date Recorded How hard is it for you to pa y for the very basics like food, housing, medical care, and heating? Not hard at all 09/23/2024 Hunger Vital Sign Answer Date Recorded Within the past 12 months, y ou worried that your food would run out before you got the money to buy more. Never true 09/23/20 24 Within the past 12 months, t he food you bought just didn't last and you didn't have money to get more. Never true 09/23/2024 PRAPARE - Transportation Answer Date Re corded In the past 12 months, has l ack of transportation kept you from medical appointments or from getting medications? No 09/07 In the past 12 months, has l ack of transportation kept you from meetings, work, or from getting things needed for daily living? No 09/23/2024 Housing Stability Vital Sign Answer Ramy e Recorded In the last 12 months, was t here a time when you were not able to pay the mortgage or rent on time? No 09/23/2024 In the past 12 months, how m any times have you moved where you were living? 0 09/23/2024 At any time in the past 12 m [facility], were you homeless or living in a fci (including now)? No 09/23/2024 Personal Safety Answer Date Recorded Have you ever been in or are you currently in a harmful physical or emotional relationship or is someone making you feel afraid or unsafe? Denies 07/04/2024 Sex and Gender Information Value Date Recorded Sex Assigned at Not on file Legal Sex Male 3:49 PM CDT Gender Identity Not on file Sexual Orientation Not on file Obstetrics History Last Filed Vital Signs Vital Sign Reading Time Taken Comments Blood Pressure 149/67 09/11/2024 3:24 PM ECOLOGICAL MODELER Pulse 67 09/11/2024 3:24 PM ECOLOGICAL MODELER Temperature 36.6 C (97.9 F) 09/11/2024 3:24 PM ECOLOGICAL MODELER Respiratory Rate 14 07/04/2024 3:35 PM CDT Oxygen Saturation 96% 08/05/2024 2:19 PM CDT Inhaled Oxygen Concentration - - Weight 108 kg (238 lb) 09/11/2024 3:24 PM ECOLOGICAL MODELER Height 185.4 cm (6' 1) 09/11/2024 3:24 PM ECOLOGICAL MODELER Body Mass Index 31.4 09/11/2024 3:24 PM ECOLOGICAL MODELER Plan of Treatment Health Maintenance Due Date Last Done Comments Albumin Creatinine Ratio, Urine 1953 Colon Cancer Screening-Colonoscopy 1955 Depression Screening 1955 Dilated Eye Exam 1955 Foot Exam 1955 Zoster Vaccine (2 of 3) 11/07/2016 09/12/2016 Well Visit 65+ 2018 Hemoglobin A1C 03/12/2025 09/11/2024, 07/09, 07/31/2023, Additional history exists Covid-19 Vaccine (2023-11 5 season) 2025 08/03/2024, 07/11/2021, 11/28/2020, Additional history exists Influenza Vaccine (#1) 2025 , 08/06/2023, 07/13/2022, Additional history exists Fall Risk Assessment 07/04/2025 07/04/2024 Lipid Panel 09/11/2025 09/11/2024, 07/08, 07/31/2023, Additional history exists eGFR 09/11/2025 09/11/2024, 07/09, 08/01/2023, Additional history exists DTaP/Tdap/Td Vaccine (2 - Td or Tdap) 07/31/2033 07/31/2023 Pneumococcal vaccine 65+ Completed 06/26/2024, 12/08 Abdominal Aortic Aneurysm (A AA) Screen Completed 09/11/2024 Hepatitis B Screening Completed 09/11/2024 Hepatitis C Screening Completed 09/11/2024 Medical Devices Implanted Type Area Petal Shaper Hand Device Identifier Shelf Expiration Date Model / Serial / Lot [employer] 00379-11 Perclose 6fr Suture Mediate Knot Push Vascular Device Closure - [id number] Implanted:Qty: 1 on 10/27/2021 by Diogenes Peralta MD at [facility] [employer] 08/07/2023 [id number] / / [id number] [employer] 57387-29 Perclose 6fr Suture Mediate Knot Push Vascular Device Closure - [id number] Implanted:Qty: 1 on 10/27/2021 by Diogenes Peralta MD at [facility] [employer] 08/07/2023 [id number] / / [id number] [employer] [id number] Commander Maged 3 Atrion Transcatheter Balloon Catheter Crimper - [id number] - [id number] Implanted:Qty: 1 on 10/27/2021 by Diogenes Peralta MD at [facility] [employer] 05/15/2023 [id number] / [id number] / [employer]ig [employer]ian [id number] Device Closure Angio-Seal Vip [employer]dek-Plus Polyglyd L70 Cm Od6 Fr Odsec.035 In Vascular - [id number] Implanted:Qty: 1 on 10/27/2021 by Diogenes Peralta MD at [facility] [employer] 06/07/2022 [id number] / / [id number] [employer]ing 4-7mm 45cm 38cm Radial Support Stretch Line [id number] - [id number] Implanted:Qty: 1 on 07/04/2024 at [facility] Left: Arm [employer] 02/09/2029 [id number] / [id number] / Procedures Procedure Name Priority Date/Time Associated Diagnosis Comments CT CHEST ABDOMEN PELVIS WO CONTRAST Schedule Routine, Read Routine (OP Routine) 09/11/2024 4:40 PM ECOLOGICAL MODELER Pre-transplant evaluation for kidney transplant End stage renal disease (HCC) HEPATITIS C ANTIBODY Routine 09/11/2024 7:30 AM ECOLOGICAL MODELER Pre-transplant evaluation for kidney transplant End stage renal disease (HCC) EGFR Routine 09/11/2024 7:30 AM ECOLOGICAL MODELER Pre-transplant evaluation for kidney transplant End stage renal disease (HCC) HEMOGLOBIN A1C Routine 09/11/2024 7:30 AM ECOLOGICAL MODELER Pre-transplant evaluation for kidney transplant End stage renal disease (HCC) LIPID PANEL Routine 09/11/2024 7:30 AM ECOLOGICAL MODELER Pre-transplant evaluation for kidney transplant End stage renal disease (HCC) from Last 3 Months or Most Recently Relevant to Health Maintenance Results * CT Chest Abdomen Pelvis WO Contrast (09/11/2024 4:40 PM ECOLOGICAL MODELER) Anatomical Region Laterality Modality Body N/A Computed Tomogra phy 09/12/2024 8:25 AM ECOLOGICAL MODELER Impressions 09/12/2024 8:25 AM ECOLOGICAL MODELER 1. No acute findings in the abdomen or pelvis. 2. Minimal calcification of the external iliac arteries bilaterally. Electronically signed by: Oleg Shen M.D., Ph.D Narrative 09/12/2024 8:25 AM ECOLOGICAL MODELER EXAMINATION: Computed tomography of the chest, abdomen and pelvis with intravenous contrast HISTORY: Pretransplant evaluation for kidney transplant. TECHNIQUE: Transaxial computed tomographic images of the chest, abdomen and pelvis were obtained without intravenous contrast according to the standard protocol. COMPARISON: 08/24/2021 FINDINGS: Chest: The calcified nodule seen in left upper lobe which is unchanged and likely sequela of old granulomatous disease. There are scattered unchanged pulmonary nodules which are similar in size when compared to the prior study in 2020. There is a nodule along the fissure on the right at series 3, image 70 that measures 0.9 cm. There are subcentimeter nodule seen within the left upper lobe which can be seen clustered at series 3, image 71 not significantly changed. There are no new suspicious pulmonary nodules or masses. There is suggestion of very mild reticulation seen in the periphery of the lung bases which could be in part a component of atelectasis in the setting of new small bilateral pleural effusions. No pneumonic consolidation to suggest pneumonia. The lungs have a somewhat heterogeneous appearance which could indicate some degree of air trapping and small airway disease. No pneumothorax. The central airways are widely patent. Thyroid normal. No suspicious lymphadenopathy seen within the chest, although evaluation of lymphadenopathy is limited given the noncontrast technique. There is a right internal jugular central venous catheter which terminates at the superior cavoatrial junction. Calcified hilar nodes are in keeping with old granulomatous disease. There is an aortic valve replacement. The aorta is normal in caliber. Mild bilateral gynecomastia. No suspicious chest wall lesions. Abdomen/Pelvis: There is widening of the periportal space which can be seen in the setting of hepatic fibrosis. There calcifications in the liver and the spleen which are in keeping with granulomatous disease. No bile duct dilation. Suggestion of sludge within the gallbladder. The gallbladder fundus folds back on itself with a phrygian cap appearance which is normal. Pancreas normal. This is no suspicious splenic lesion. Splenule noted. Kidneys are somewhat atrophic with nonspecific perinephric stranding. There is an unchanged 1.3 cm right adrenal adenoma. There is a cyst in the right kidney that measures 2.0 cm. No hydronephrosis. No obstructing renal stone. Urinary bladder normal. Prostate calcifications. No suspicious bowel wall thickening. No evidence of bowel obstruction. No evidence of appendiceal inflammation. Gastric sleeve resection changes are noted. Limited evaluation of the vasculature given noncontrast technique. Scattered vascular calcifications are seen. The aorta is normal in caliber. No suspicious lymphadenopathy is seen within the abdomen or pelvis. No free intraperitoneal fluid or gas. There is a fat-containing right inguinal hernia. No suspicious abdominal wall lesions. There is mild body wall edema present. Degenerative changes are seen in the spine. Procedure Note Oleg Shen MD PhD - 09/12/2024 EXAMINATION: Computed tomography of the chest, abdomen and pelvis with intravenous contrast HISTORY: Pretransplant evaluation for kidney transplant. TECHNIQUE: Transaxial computed tomographic images of the chest, abdomen and pelvis were obtained without intravenous contrast according to the standard protocol. COMPARISON: 08/24/2021 FINDINGS: Chest: The calcified nodule seen in left upper lobe which is unchanged and likely sequela of old granulomatous disease. There are scattered unchanged pulmonary nodules which are similar in size when compared to the prior study in 2020. There is a nodule along the fissure on the right at series 3, image 70 that measures 0.9 cm. There are subcentimeter nodule seen within the left upper lobe which can be seen clustered at series 3, image 71 not significantly changed. There are no new suspicious pulmonary nodules or masses. There is suggestion of very mild reticulation seen in the periphery of the lung bases which could be in part a component of atelectasis in the setting of new small bilateral pleural effusions. No pneumonic consolidation to suggest pneumonia. The lungs have a somewhat heterogeneous appearance which could indicate some degree of air trapping and small airway disease. No pneumothorax. The central airways are widely patent. Thyroid normal. No suspicious lymphadenopathy seen within the chest, although evaluation of lymphadenopathy is limited given the noncontrast technique. There is a right internal jugular central venous catheter which terminates at the superior cavoatrial junction. Calcified hilar nodes are in keeping with old granulomatous disease. There is an aortic valve replacement. The aorta is normal in caliber. Mild bilateral gynecomastia. No suspicious chest wall lesions. Abdomen/Pelvis: There is widening of the periportal space which can be seen in the setting of hepatic fibrosis. There calcifications in the liver and the spleen which are in keeping with granulomatous disease. No bile duct dilation. Suggestion of sludge within the gallbladder. The gallbladder fundus folds back on itself with a phrygian cap appearance which is normal. Pancreas normal. This is no suspicious splenic lesion. Splenule noted. Kidneys are somewhat atrophic with nonspecific perinephric stranding. There is an unchanged 1.3 cm right adrenal adenoma. There is a cyst in the right kidney that measures 2.0 cm. No hydronephrosis. No obstructing renal stone. Urinary bladder normal. Prostate calcifications. No suspicious bowel wall thickening. No evidence of bowel obstruction. No evidence of appendiceal inflammation. Gastric sleeve resection changes are noted. Limited evaluation of the vasculature given noncontrast technique. Scattered vascular calcifications are seen. The aorta is normal in caliber. No suspicious lymphadenopathy is seen within the abdomen or pelvis. No free intraperitoneal fluid or gas. There is a fat-containing right inguinal hernia. No suspicious abdominal wall lesions. There is mild body wall edema present. Degenerative changes are seen in the spine. IMPRESSION: 1. No acute findings in the abdomen or pelvis. 2. Minimal calcification of the external iliac arteries bilaterally. Electronically signed by: Oleg Shen M.D., Ph.D Yudy Sanabria MD IM CT PROCEDURES Final Result * (ABNORMAL) eGFR (09/11/2024 7:30 AM ECOLOGICAL MODELER) eGFR 11(L) >=60 mL/min/1. 73 m2 Comment: Interpretive Data Reference Interval Normal >/= 90 mL/min/1.73m2 Mildly decreased* 60 - 89 mL/min/1.73m2 Mildly to moderately decreased 45 - 59 mL/min/1.73m2 Moderately to severely decreased 30 - 44 mL/min/1.73m2 Severely decreased 15 - 29 mL/min/1.73m2 Kidney Failure < 15 mL/min/1.73m2 *Relative to young adult level Estimated glomerular filtration rate is determined by the 2020 CKD-EPI equation recommended by the National Kidney Foundation (A Unifying Approach to GFR Estimation: Recommendations of the NKF-ASK Task Force on Reassessing the Inclusion of Race in Diagnosing Kidney Disease, JASN 2020). The CKD-EPI equation should not be used for patients with unstable renal function and has not been validated in children and those over 70. Current interpretive data was last reviewed 2021. Blood 09/11/2024 7:30 AM ECOLOGICAL MODELER 09/11/2024 8:11 AM ECOLOGICAL MODELER Yudy Sanabria MD LAB BLOOD ORDERABLES Final Resul t Performing Organization Address City/[facility] Co de Phone Number [facility] Department [place] [address] * Hepatitis C antibody Blood (09/11/2024 7:30 AM ECOLOGICAL MODELER) Pathologist [facility] Hep C Ab Nonreactive Nonreactive Comment:Antibodies to HCV no t detected. Does NOT exclude the possibility of recent exposure to HCV. Current interpretive data was last revised on 22 Blood 09/11/2024 7:30 AM ECOLOGICAL MODELER 09/11/2024 8:08 AM ECOLOGICAL MODELER Narrative [facility] - 09/11/2024 8:55 AM ECOLOGICAL MODELER This lab is being obtained as part of a Kidney transplant evaluation, is time sensitive, and should only be drawn during the evaluation visit at [facility] Lab. Yudy Sanabria MD LAB MICROBIOLOGY - GENERAL ORDER ZOIE Final Result Performing Organization Address City/[facility]/ZIP Co de Phone Number [facility] Department [place] [address] * (ABNORMAL) Hemoglobin A1c (09/11/2024 7:30 AM ECOLOGICAL MODELER) Hgb A1C 10.0(H) 4.0 - 5.6 % Estimated Average Glucose 240 mg/dL [facility] Comment: The ADA recommends reporting an estimated Average Glucose (eAG) with all Hemoglobin A1c results using the equation derived from a study of 507 normal and diabetic adults. Minority populations were underrepresented and children were not included. (Diabetes Care 2020; 43(S1): S66-S76). The eAG is not equivalent to a fasting glucose. Blood 09/11/2024 7:30 AM ECOLOGICAL MODELER 09/11/2024 8:08 AM ECOLOGICAL MODELER Narrative [facility] - 09/11/2024 8:33 AM ECOLOGICAL MODELER This lab is being obtained as part of a Kidney transplant evaluation, is time sensitive, and should only be drawn during the evaluation visit at [facility]CAM Lab. Yudy Sanabria MD LAB BLOOD ORDERABLES Final Resul t [facility] One [facility] Department [place] [address] * (ABNORMAL) Lipid panel (09/11/2024 7:30 AM ECOLOGICAL MODELER) Pathologist [facility] Cholesterol 76 30 - 199 mg/dL Comment: Interpretive Data Ages < or = 19 years Acceptable: <170 mg/dL Borderline high: 170-199 mg/dL High: >or= 200 mg/dL Ages > or = 20 years Desirable: <200 mg/dL Borderline high: 200-239 mg/dL High: >or= 240 mg/dL Literature References: 1. Expert Panel on Integrated Guidelines for Cardiovascular Health and Risk Reduction in Children and Adolescents. Pediatrics 2011;128:S213 2. NCEP Expert Panel. Circulation 2004;110:227 Current Interpretive Data was last revised on 2018. Triglycerides 77 <=149 mg/dL [facility] Comment: Interpretive Data Ages < or = 9 years Acceptable: <75 mg/dL Borderline high: 75-99 mg/dL High: >or= 100 mg/dL Ages 10 to 20 years Acceptable: <90 mg/dL Borderline high: 90-129 mg/dL High: >or= 130 mg/dL Ages > or = 20 years Desirable: <150 mg/dL Borderline high: 150-199 mg/dL High: 200-499 mg/dL Very high: >or= 499 mg/dL Literature References: 1. Expert Panel on Integrated Guidelines for Cardiovascular Health and Risk Reduction in Children and Adolescents. Pediatrics 2011;128:S213 2. NCEP Expert Panel. Circulation 2004;110:227 Current Interpretive Data was last revised on 2018. HDL 35(L) >=40 mg/dL [facility] Comment: Interpretive Data Ages < or = 19 years Acceptable: >45 mg/dL Borderline low: 40-45 mg/dL Low: <40 mg/dL Ages > or = 20 years Desirable: >or= 60 mg/dL Low: <40 mg/dL Literature References: 1. Expert Panel on Integrated Guidelines for Cardiovascular Health and Risk Reduction in Children and Adolescents. Pediatrics 2011;128:S213 2. NCEP Expert Panel. Circulation 2004;110:227 Current Interpretive Data was last revised on 2018. LDL, calculated 25 <=129 mg/dL [facility] Comment: Interpretive Data Ages < or = 19 years Acceptable: <110 mg/dL Borderline high: 110-129 mg/dL High: >or= 130 mg/dL Ages > or = 20 years Optimal: <100 mg/dL Near optimal: 100-129 mg/dL Borderline high: 130-159 mg/dL High: >160 mg/dL Calculated using the Chai LDL-C estimating equation. This equation was implemented on 2024. Prior to this date LDL-C was estimated using the Friedewald equation. Literature References: 1. Expert Panel on Integrated Guidelines for Cardiovascular Health and Risk Reduction in Children and Adolescents. Pediatrics 2011;128:S213 2. NCEP Expert Panel. Circulation 2004;110:227 3. Chai James al. SHAYNA Cardiol. 2020 February 05;5(5):540-548. doi: [email or web address] Current Interpretive Data was last revised on 2024. Non-HDL Cholesterol 41 mg/dL [facility] Comment: Interpretive Data Ages < or = 19 years Acceptable: <120 mg/dL Borderline high: 120-144 mg/dL High: >145 mg/dL Ages > or = 20 years When triglycerides are >200 mg/dL, Non-HDL cholesterol is a secondary target of therapy with treatment goals that are 30 mg/dL greater than the LDL cholesterol target. Literature References: 1. Expert Panel on Integrated Guidelines for Cardiovascular Health and Risk Reduction in Children and Adolescents. Pediatrics 2011;128:S213 2. NCEP Expert Panel. Circulation 2004;110:227 Current Interpretive Data was last revised on 2018. Chol/HDL ratio 2 [facility] Blood 09/11/2024 7:30 AM ECOLOGICAL MODELER 09/11/2024 8:08 AM ECOLOGICAL MODELER Narrative [facility] - 09/11/2024 8:46 AM ECOLOGICAL MODELER This lab is being obtained as part of a Kidney transplant evaluation, is time sensitive, and should only be drawn during the evaluation visit at [facility]. us Yudy Sanabria MD LAB BLOOD ORDERABLES Final Resul t [facility] Department [place] [address] from Last 3 Months or Most Recently Relevant to Health Maintenance Insurance [facility] [place] [address] [address] [id number] Advance Directives For more information, please contact: [phone] * Full Code (Latest Code Status on File) Date Activated Date Inactivated Comments 07/31/2023 4:40 PM 08/02/2023 11:21 PM Care Teams Harness Inspector Relationship Specialty Start Date End Date Gabriel Ngo MD [address] [place] [address] PCP - General Nephrology 07/31/24 Gabriel Ngo MD Referring Physician Nephrology 05/02/24 Gabriel Ngo MD Referring Physician Nephrology 05/29/24 Diogenes Peralta MD [address] [place] [address] [place] [address] [place] [address] Cardiology 06/17/24
== END 2025-07-23 12:46 | disposition home or self-care (01) ==
PROVIDERS: PCP Family Medicine; Visit Provider Family Medicine
DX: S92.411A Displaced fracture of proximal phalanx of right great toe, initial encounter for closed fracture (principal); X58.XXXA Exposure to other specified factors, initial encounter
CPT/HCPCS: 73630

== ENCOUNTER 2025-08-10 13:04 | Outpatient (CLI) | payer MEDICARE, SELFPAY ==
--- NOTE | ~2025-08-10 | XR_ITS ---
PROCEDURE(S): Radiography of right foot 2 views. INDICATION(S): Follow-up fracture COMPARISON(S): July 23 TECHNIQUE: 2 radiographic images were submitted for interpretation. FINDINGS: Bones: The known fracture in the proximal phalanx of the first digit is healing. The fracture line is still evident. There is deformity of the navicular. There are no destructive lesions or other lesions identified. Joints: There are no dislocations identified. Osteoarthritic type change of the first MTP. IMPRESSION: Healing fracture as described Reviewed, dictated and finalized at location A. T ARMORED VEHICLE OFFICER
--- OUTSIDE RECORDS SUMMARY | 2025-08-10 14:18 | XMS_ITS | Clinical Summary ---
Author Organization [facility] [address] Address [address] [place] [address] Care Team Providers Care Big Data Solutions Architect Name Role Phone Gabriel Ngo MD Unavailable [phone] Diogenes Peralta MD Unavailable Keo Delacruz MD Primary Care Provider [phone] Allergies Active Allergy Reactions Criticality Noted Date Comments Sulfa (Sulfonamide Antibiotics) Hives,Rash Medium 06/08 Medications multivitamin-m inerals-lutein (CENTRUM SILVER) tablet take 1 tablet by oral route every day 0 04/24/20 12 Active Additional Information Patient not taking.Informant: Self, Reported on 07/28/2025 aspirin 81 mg tablet take 1 tablet by oral route every day 0 02/08/20 16 Active Additional Information Patient taking differently:81 mgoral Nightly, Indications: prevention of thrombosis, Informant: Self, Reported on 07/28/2025 ascorbic acid, vitamin C, (VITAMIN C) 500 mg capsule, extended release CR capsule take 1 by Oral route once 0 0 10/04/20 16 Active Additional Information Patient taking differently:500 mgoral Daily (early AM), Indications: Vitamin C Deficiency, Informant: Self, Reported on 07/28/2025 glimepiride (AMARYL) 4 mg tabletIndicati ons:type 2 diabetes mellitus Take 0.5 tablets (2 mg total) by mouth daily before breakfast Active acetaminophen ER (TYLENOL) 650 mg 8 hr tabletIndicati ons:Pain Take 2 tablets (1,300 mg total) by mouth every 8 (eight) hours as needed for pain Active amLODIPine (NORVASC) 5 mg tabletIndicati ons:hypertensi on Take 1 tablet (5 mg total) by mouth ophthalmic lens inspector before breakfast 03/07/20 22 Active Jardiance 10 mg tablet 03/01/20 22 Active magnesium oxide 400 mg magnesium capsuleIndicat ions:hypomagne semia Take 400 mg by mouth nightly Active metoprolol XL (TOPROL-XL) 50 mg extended release tabletIndicati ons:hypertensi on Take 1 tablet (50 mg total) by mouth ophthalmic lens inspector before breakfast Active lisinopriL (PRINIVIL,ZEST RIL) 20 [...] as needed for pain 20 tablet 07/07/20 24 Active Additional Information Patient not taking.Reported on 07/28/2025 apixaban (Eliquis) 5 mg tablet Take 1 tablet (5 mg total) by mouth 2 (two) times a day 180 tablet 3 07/23/20 24 Active OneTouch Ultra Test strip 06/19/20 24 Active gabapentin (NEURONTIN) 100 mg capsule Take [...] MOUTH DAILY 90 tablet 07/17/20 25 Active insulin degludec (TRESIBA) 100 unit/mL (3 mL) pen for injection Inject under the skin Active ezetimibe (ZETIA) 10 mg tablet TAKE 1 TABLET(10 MG) BY MOUTH DAILY 90 tablet 2 09/17/20 025 Discontinued Active Problems Problem Noted Date [...] 10 - ssi - A1c, lipid panel Ectdf-hr-zeddjka kidney injury 07/31/2023 Assessment & Plan (08/02/2023 [...] mellitus 06/09 Coronary artery disease invo lving yavapai-apache coronary artery of [place] heart without angina pectoris 09/13/2021 Hypertension associated with diabetes 06/24/2021 Assessment & Plan (07/31/2023 10:27 AM CDT): - hold presurgically amlodipine 5 Aortic stenosis 10/17/2017 Aortic regurgitation 10/17/2017 Chronic atrial fibrillation 10/17/2017 Assessment & Plan (07/31/2023 10:26 AM CDT): - hold presurgically metoprolol XL 50mg BID Chronic anticoagulation 10/17/2017 Mixed diabetic hyperlipidemi a associated with type 2 diabetes mellitus ([facility]) 10/17/2017 History of bypass of stomach 10/04/2016 [...] CDT): - cont atorvastatin 80, ezetimebe 10 Encounters Date Type Department Care Team Description 07/28/2025 9:30 AM CDT Office Visit [facility] Cardiology [address] [place] [address] Matias Dale MD Coronary artery disease involving yavapai-apache coronary artery of [place]avapai-apache heart without angina pectoris (Primary Dx) from Last 3 Months Immunizations Immunization Administration Dates Next Due Tdap [...] drink = 0.6 oz pur e alcohol) [facility] Utilities Answer Date Recorded In the past 12 months has [employer], gas, oil, or water [employer] threatened to shut off services in your [...] week 09/23/2024 How often do you attend chur ch or faith services? Never 09/23/2024 Do you belong to any clubs o r organizations such as orthodoxy groups, unions, fraternal or athletic groups, or [...] any time in the past 12 m [facility], were you homeless or living in a retirement (including now)? No 09/23/2024 Personal Safety Answer [...] on file Sexual Orientation Not on file Last Filed Vital Signs Vital Sign Reading Time Taken Comments Blood Pressure 128/56 07/28/2025 9:18 AM CDT Pulse 65 07/28/2025 9:18 AM CDT Temperature 36.6 C (97.9 F) 09/11/2024 3:24 PM BOOTH CLEANER Respiratory Rate 16 07/28/2025 9:18 AM CDT Oxygen Saturation 97% 07/28/2025 9:18 AM CDT Inhaled Oxygen Concentration - - Weight 112.9 kg (249 lb) 07/28/2025 9:18 AM CDT Height 190.5 cm (6' 3) 07/28/2025 9:18 AM CDT Body Mass Index 31.12 07/28/2025 9:18 AM CDT Plan of Treatment Health Maintenance Due Date Last Done Comments Albumin Creatinine Ratio, Urine 1955 Colon Cancer Screening-Colonoscopy 1955 Depression Screening 1955 Dilated Eye Exam 1955 Foot Exam 1955 Zoster Vaccine (1 of 2) 11/07/2016 09/12/2016 Well Visit 65+ 2018 Hemoglobin A1C 03/12/2025 09/11/2024, 07/09, 07/31/2023, Additional history exists Covid-19 Vaccine (2024- 6 season) 2025 08/03/2024, 07/11/2021, 11/28/2020, Additional history exists Influenza Vaccine (#1) 2025 , 08/06/2023, 07/13/2022, Additional history exists Fall Risk Assessment 07/04/2025 07/04/2024 eGFR 09/11/2025 09/11/2024, 07/09, 08/01/2023, Additional history exists Lipid Panel 07/28/2026 07/28/2025, 12/02/2024, 07/22/2024, Additional history exists DTaP/Tdap/Td Vaccine (3 - Td or Tdap) 07/31/2033 07/31/2023, 12/02/2010 Pneumococcal vaccine 65+ Completed 024, 01/04/2022, 11/22/2015, Additional history exists Abdominal Aortic Aneurysm (A AA) Screen Completed 09/11/2024 Hepatitis C Screening Completed 09/11/2024 Hepatitis B Screening Completed 01/23/2025 , 11/03/2024, 09/02/2024, Additional history exists Medical Devices Implanted Type Area Shoulder Boner Device Identifier Shelf Expiration Date Model / Serial / Lot [employer] [id number] Perclose 6fr Suture Mediate Knot Push Vascular Device Closure - [id number] Implanted:Qty: 1 on 10/27/2021 by Diogenes Peralta MD at [facility] Vascular 08/07/2023 [id number] / / [id number] [employer] 72594-67 Perclose 6fr Suture Mediate Knot Push Vascular Device Closure - [id number] Implanted:Qty: 1 on 10/27/2021 by Diogenes Peralta MD at [facility] Vascular 08/07/2023 [id number] / / [id number] [employer] [id number] Commander Maged 3 Atrion Transcatheter Balloon Catheter Crimper - [id number] - [id number] Implanted:Qty: 1 on 10/27/2021 by Diogenes Peralta MD at [facility] [employer] 05/15/2023 [id number] / [id number] / Daig Cristian [id number] Device Closure Angio-Seal Vip Bondek-Plus Polyglyd L70 Cm Od6 Fr Odsec.035 In Vascular - [id number] Implanted:Qty: 1 on 10/27/2021 by Diogenes Peralta MD at [facility] Cristian 06/07/2022 [id number] / / [id number] [employer] Hudson Intering 4-7mm 45cm 38cm Radial Support Stretch Line [id number] - [id number] Implanted:Qty: 1 on 07/04/2024 at [facility] Left: Arm [employer] 02/09/2029 [id number] / [id number] / Procedures Procedure Name Priority Date/Time Associated Diagnosis Comments POCT LIPID PANEL Routine 07/28/2025 9:10 AM CDT Coronary artery disease involving yavapai-apache coronary artery of yavapai-apache heart without angina pectoris CT CHEST ABDOMEN PELVIS WO CONTRAST Schedule Routine, Read Routine (OP Routine) 09/11/2024 4:40 PM BOOTH CLEANER Pre-transplant evaluation for kidney transplant End stage renal disease (HCC) HEPATITIS C ANTIBODY Routine 09/11/2024 7:30 AM BOOTH CLEANER Pre-transplant evaluation for kidney transplant End stage renal disease (HCC) EGFR Routine 09/11/2024 7:30 AM BOOTH CLEANER Pre-transplant evaluation for kidney transplant End stage renal disease (HCC) HEMOGLOBIN A1C Routine 09/11/2024 7:30 AM BOOTH CLEANER Pre-transplant evaluation for kidney transplant End stage renal disease (HCC) from Last 3 Months or Most Recently Relevant to Health Maintenance Results * (ABNORMAL) POCT lipid panel (07/28/2025 9:10 AM CDT) Cholesterol, POC 99 <200 MG/DL HDL, POC 22(A) >=40 mg/dL Triglycerides, POC 117 <=149 mg/dL LDL Cholesterol POC 53.6 <=129 mg/dL Cholesterol Total, POC 99 30 - 199 mg/dL Capillary blood 07/28/2025 9 :10 AM CDT Matias Dale MD POINT OF CARE TEST ORDERABLES Fi nal Result * CT Chest Abdomen Pelvis WO Contrast (09/11/2024 4:40 PM BOOTH CLEANER) Anatomical Region Laterality Modality Body N/A Computed Tomogra phy 09/12/2024 8:25 AM BOOTH CLEANER Impressions 09/12/2024 8:25 AM BOOTH CLEANER 1. No acute findings in the abdomen or pelvis. 2. Minimal calcification of the external iliac arteries bilaterally. Electronically signed by: Oleg Shen M.D., Ph.D Narrative 09/12/2024 8:25 AM BOOTH CLEANER EXAMINATION: Computed tomography of the chest, abdomen [...] Electronically signed by: Oleg Shen M.D., Ph.D us Yudy Sanabria MD IMG CT PROCEDURES Final Result * (ABNORMAL) eGFR (09/11/2024 7:30 AM BOOTH CLEANER) eGFR 11(L) >=60 mL/min/1. 73 m2 Comment: [...] of Race in Diagnosing Kidney Disease, JASN 202). The CKD-EPI equation should not be used for patients with unstable renal function and has not been validated in children and those over 70. Current interpretive data was last reviewed 2021. Blood 09/11/2024 7:30 AM BOOTH CLEANER 09/11/2024 8:11 AM BOOTH CLEANER us Yudy Sanabria MD LAB BLOOD ORDERABLES Final Resul t Performing Organization Address [facility] Co de Phone Number [facility] [place] [address] * Hepatitis C antibody Blood (09/11/2024 7:30 AM BOOTH CLEANER) [facility] Hep C Ab Nonreactive Nonreactive Comment:Antibodies to HCV no t detected. Does NOT exclude the possibility of recent exposure to HCV. Current interpretive data was last revised on 22 Blood 09/11/2024 7:30 AM BOOTH CLEANER 09/11/2024 8:08 AM BOOTH CLEANER Narrative [facility] 09/11/2024 8:55 AM BOOTH CLEANER This lab is being obtained as part of a Kidney transplant evaluation, is time sensitive, and should only be drawn during the evaluation visit at [address] Yudy Sanabria MD LAB MICROBIOLOGY - GENERAL ORDER ZOIE Final Result Performing Organization Address [facility] de Phone Number [facility] Department [place] [address] * (ABNORMAL) Hemoglobin A1c (09/11/2024 7:30 AM BOOTH CLEANER) [facility] Hgb A1C 10.0(H) 4.0 - 5.6 % Estimated Average Glucose 240 mg/dL [facility] Comment: The ADA recommends reporting an estimated Average Glucose (eAG) with all Hemoglobin A1c results using the equation derived from a study of 507 normal and diabetic adults. Minority populations were underrepresented and children were not included. (Diabetes Care 2020; 43(S1): S66-S76). The eAG is not equivalent to a fasting glucose. Blood 09/11/2024 7:30 AM BOOTH CLEANER 09/11/2024 8:08 AM BOOTH CLEANER Narrative [facility] - 09/11/2024 8:33 AM BOOTH CLEANER This lab is being obtained as part of a Kidney transplant evaluation, is time sensitive, and should only be drawn during the evaluation visit at [address] Yudy Sanabria MD LAB BLOOD ORDERABLES Final Resul t [facility] [place] [address] from Last 3 Months or Most Recently Relevant to Health Maintenance Insurance Member Subscriber Plan / Payer (Ef fective 2022-Present) Name:Wesley Sanchez Relation to Subscriber:Self Name:Wesley Sanchez Payer ID:[id number] (NAIC) Type:[facility] MEDICARE Address: [place] [phone] Advance Directives For more information, please contact: [phone] * Full Code (Latest Code Status on File) Date Activated Date Inactivated Comments 07/31/2023 4:40 PM 08/02/2023 11:21 PM Care Teams Big Data Solutions Architect Relationship Specialty Start Date End Date Keo Delacruz MD [facility] [address] [address] PCP - General Family Medicine 07/27/25 Gabriel Ngo MD Referring Physician Nephrology 05/02/24 Diogenes Peralta MD [address] [place] [address] [place] [address] [place] [address] Cardiology 06/17/24
--- OUTSIDE RECORDS SUMMARY | 2025-08-10 14:19 | XMS_ITS | Clinical Summary ---
Author Organization [facility] Address [address], [place] [address] Phone Care Team Providers Care Forder Operator Name Role Phone Florentino Gonzales MD Primary Care Provider [phone] Allergies Active Allergy Reactions Criticality Noted Date Comments Sulfa Antibiotics Rash Medium 08/30/2021 Medications Multiple Vitamins-Mineral s (MULTIVITAMIN ADULT EXTRA C PO) take 1 tablet by oral route every day 04/24/2012 Active acetaminophen (TYLENOL 8 HOUR) 650 MG 8 hr tablet Take 1,300 mg by mouth Active Eliquis 5 MG tablet 2021 Active ascorbic acid (VITAMIN C) 500 MG CR capsule 500 mg 10/04/2016 Activ e aspirin ([facility] [place]) 81 MG EC tablet 81 mg 02/08/2016 Active cholecalciferol, vitamin D3, 5,000 Units tablet tablet take 1 by Oral route once 10/04/2016 Active Cyanocobalamin 2500 MCG sublingual tablet Take 5,000 mcg by mouth daily Active glimepiride (AMARYL) 4 MG tablet 08/29/2021 Active metFORMIN XR 500 MG 24 hr tablet 08/29/2021 Act candelario irbesartan (AVAPRO) 300 MG tablet 12/01/2021 Active atorvastatin (LIPITOR) 80 MG tablet 12/02/2021 Active metoprolol succinate XL (TOPROL-XL) 100 MG 24 hr tablet 12/05/2021 Act candelario Active Problems Problem Noted Date Diagnosed Date Chronic kidney disease stage 3A 12/15/2021 History of aortic valve replacement 12/15/2021 Coronary atherosclerosis 09/13/2021 Aortic valve stenosis 10/17/2017 Chronic atrial fibrillation 10/17/2017 Long-term current use of anticoagulant 8 Disease type AND/OR category unknown 10/04/2016 Overview (08/30/2021): Status post gastric bypass for obesity Dyslipidemia 10/04/2016 Overview (08/30/2021): Dyslipidemia Immunizations Immunization Administration Dates Next Due Influenza TIV (IM) 07/22/2021 Family History Medical History Relation Comments Kidney disease Maternal Grandmother Relation Status Comments Maternal Grandmother Social History Tobacco Use Types Packs/Day Years Used Date Smoking Tobacco: Former Smokeless Tobacco: Never Alcohol Use Standard Drinks/Week Comments Yes 0 (1 standard drink = 0.6 oz pur e alcohol) rare Sex and Gender Information Value Date Recorded Sex Assigned at Not on file Legal Sex Male 9:45 AM MST Gender Identity Not on file Sexual Orientation Not on file Last Filed Vital Signs Vital Sign Reading Time Taken Comments Blood Pressure 126/70 12/19/2021 2:07 PM CDT Pulse 72 12/19/2021 2:07 PM CDT Temperature 35.7 C (96.3 F) 08/30/2021 12:18 PM 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 Respiratory Rate - - Oxygen Saturation - - Inhaled Oxygen Concentration - - Weight 113 kg (249 lb) 12/19/2021 2:07 PM CDT Height 190.5 cm (6' 3) 12/19/2021 2:07 PM CDT Body Mass Index 31.12 12/19/2021 2:07 PM CDT Plan of Treatment Health Maintenance Due Date Last Done Comments Pneumococcal PPSV23/PCV13 65 + Years / Low and Medium Risk (1 of 2 - PCV) 2003 Influenza Vaccine (#1) 2025 07/22/2021 Insurance [facility] MEDICARE ADVANTAGE Care Teams Forder Operator Relationship Specialty Start Date End Date Florentino Gonzales MD [address] [place] [address] PCP - General Internal Medicine 08/29/21
== END 2025-08-10 13:05 | disposition home or self-care (01) ==
PROVIDERS: PCP Family Medicine; Visit Provider Family Medicine
DX: S92.911D Unspecified fracture of right toe(s), subsequent encounter for fracture with routine healing (principal); X58.XXXD Exposure to other specified factors, subsequent encounter; M79.674 Pain in right toe(s); M79.89 Other specified soft tissue disorders
CPT/HCPCS: 73620

== ENCOUNTER 2025-08-26 13:02 | Outpatient (CLI) | payer MEDICARE, SELFPAY ==
--- NOTE | ~2025-08-26 | XR_ITS ---
EXAMINATION: XR foot RT 2V, 08/26/2025 13:12 [facility] HISTORY: S92.411A - Displaced fracture of proximal phalanx of righ... COMPARISON: No comparisons available. Findings: Healing fracture distal aspect proximal phalanx fifth digit. Moderate degenerative changes of the first metatarsal phalangeal joint Soft tissues unremarkable. Impression: No acute fracture or malalignment. Reviewed, dictated and finalized at location [facility] Impression: No acute fracture or malalignment.
== END 2025-08-26 13:03 | disposition home or self-care (01) ==
PROVIDERS: PCP Family Medicine; Visit Provider Nurse Practitioner Family
DX: S92.411A Displaced fracture of proximal phalanx of right great toe, initial encounter for closed fracture (principal); X58.XXXA Exposure to other specified factors, initial encounter
CPT/HCPCS: 73620